=== PATIENT | female | born 1955 | race African-American/Black ===

== ENCOUNTER 2018-02-02 20:13 | Emergency (ER) | payer MEDICAID ==
[2018-02-02] MEDS ORDERED: TRAMADOL HCL 50 MG TAB ONE (21:49)
--- NOTE | 2018-02-02 21:58 | ER ---
Nurse's Notes [facility] Name: Chelsea Cristobal Age: 62 yrs Sex: Female : 1955 Arrival Date: 02/02/2018 Time: 20:13 Bed 23 Private MD: Diagnosis: Pain in left toe(s)-Second Presentation: 02/02 20:36 Presenting complaint: Patient states: Left 2 nd tow pain and swelling for 2 months. aj Bruising noted to posterior 2 nd digits. Transition of care: patient was not received from another setting of care. Onset of symptoms was November 2017. Care prior to arrival: None. 20:36 Method Of Arrival: Ambulatory aj 20:36 Acuity: INDIO 4 aj Triage Assessment: 20:37 General: Appears in no apparent distress. comfortable, Behavior is calm, cooperative, aj appropriate for age. Pain: Complains of pain in plantar aspect of left second toe and left second toe Pain currently is 8 out of 10 on a pain scale. Neuro: Level of Consciousness is awake, alert, obeys commands, Oriented to person, place, time, situation. Respiratory: Airway is patent Respiratory effort is even, unlabored, Respiratory pattern is regular, symmetrical. Derm: Skin is intact, is healthy with good turgor, Skin is pink, warm \T\ dry. normal. Musculoskeletal: Swelling present in plantar aspect of left second toe and left second toe Reports pain in plantar aspect of left second toe and left second toe. Historical: - Allergies: 20:37 Motrin; aj - Home Meds: 20:37 None [Active]; aj - PMHx: 20:37 None; aj - PSHx: 20:37 Appendectomy; gall stone removal; aj - Immunization history:: Adult Immunizations up to date. - Social history:: Smoking status: Patient/guardian denies using tobacco. Screenin:19 Abuse screen: Denies threats or abuse. Nutritional screening: No deficits noted. tl3 Tuberculosis screening: No symptoms or risk factors identified. Fall Risk None identified. Assessment: 21:19 Reassessment: pt reports painful swelling in toe for about the last couple of weeks, tl3 denies knowledge of any injury. General: Appears in no apparent distress. distressed, comfortable, well groomed, well developed, well nourished, Behavior is calm, cooperative, appropriate for age. Pain: Pain currently is 8 out of 10 on a pain scale. Neuro: Level of Consciousness is awake, alert, obeys commands, Oriented to person, place, time, situation, Appropriate for age. Cardiovascular: Heart tones S1 S2 present Capillary refill < 3 seconds in bilateral toes. Respiratory: Airway is patent Trachea midline Respiratory effort is even, unlabored, Respiratory pattern is regular, symmetrical, Breath sounds are clear. GI: No signs and/or symptoms were reported involving the gastrointestinal system. : No signs and/or symptoms were reported regarding the genitourinary system. EENT: No signs and/or symptoms were reported regarding the EENT system. Derm: No signs and/or symptoms reported regarding the dermatologic system. Musculoskeletal: Swelling present in left second toe. 22:04 Reassessment: Patient appears in no apparent distress at this time. No changes from tl3 previously documented assessment. Patient and/or family updated on plan of care and expected duration. Pain level reassessed. Patient is alert, oriented x 3, equal unlabored respirations, skin warm/dry/pink. crutch walking demonstrated. Vital Signs: 20:37 BP 155 / 87; Pulse 81; Resp 19; Temp 97.5; Pulse Ox 100% on R/A; Weight 82.55 kg; aj Height 5 ft. 4 in. (162.56 cm); Pain 8/10; 22:04 BP 138 / 76; Pulse 74; Resp 18; Pulse Ox 100% on R/A; tl3 20:37 Body Mass Index 31.24 (82.55 kg, 162.56 cm) ED Course: 20:13 Patient arrived in ED. ds1 20:37 Triage completed. aj 20:37 Arm band placed on right wrist. Patient placed in waiting room. X-ray ordered. aj 21:01 Kevan Gomes PA is PHCP. cp 21:01 Johnny Pike MD is Attending Physician. cp 21:16 Eusebia Coronado, JIGNESH is Primary Nurse. tl3 21:19 No apparent distress. tl3 21:19 Patient has correct armband on for positive identification. Bed in low position. Call tl3 light in reach. Side rails up X 1. Adult w/ patient. Pulse ox on. NIBP on. 21:19 No provider procedures requiring assistance completed. X-ray(s) taken. tl3 21:31 X-ray completed. Portable x-ray completed in exam room. Patient tolerated procedure kc2 well. 21:31 XRAY Foot LEFT 2 View In Process Unspecified. EDMS 21:56 Raymundo Boone DPM is Referral Physician. cp 22:04 Patient did not have IV access during this emergency room visit. tl3 Administered Medications: 21:50 Drug: traMADol 50 mg Route: PO; tl3 22:04 Follow up: Response: Medication administered at discharge. tl3 Outcome: 21:57 Discharge ordered by MD. cp 22:04 Discharged to home ambulatory, with crutches, with family. tl3 22:04 Condition: stable 22:04 Discharge instructions given to patient, Instructed on discharge instructions, follow up and referral plans. medication usage, crutch walking, Demonstrated understanding of instructions, follow-up care, medications, crutch walking, Prescriptions given X 1. 22:06 Patient left the ED. tl3 Signatures: Dispatcher [employer] EDMS Amanda Moreno, RN RN Nathalia Alvarado ds1 Kevan Gomes PA PA Amarilis Hall kc2 Eusebia Coronado, RN RN tl3
--- NOTE | 2018-02-02 21:58 | EDPHYS ---
Physician Documentation [facility] Name: Chelsea Cristobal Age: 62 yrs Sex: Female : 1955 Arrival Date: 02/02/2018 Time: 20:13 Bed 23 Private MD: ED Physician Johnny Pike HPI: 02/02 21:38 This 62 yrs old Black Female presents to ER via Ambulatory with complaints of Toe Issue.cp 21:39 The patient presents with pain, swelling, tenderness. The complaints affect the plantar cp aspect of left second toe. Context: resulted from an unknown cause, the patient can fully bear weight. Onset: The symptoms/episode began/occurred 2 month(s) ago. Historical: - Allergies: 20:37 Motrin; aj - Home Meds: 20:37 None [Active]; aj - PMHx: 20:37 None; aj - PSHx: 20:37 Appendectomy; gall stone removal; aj - Immunization history:: Adult Immunizations up to date. - Social history:: Smoking status: Patient/guardian denies using tobacco. ROS: 21:40 Constitutional: Negative for body aches, chills, fever, poor PO intake. cp 21:40 Eyes: Negative for injury, pain, redness, and discharge. cp 21:40 Cardiovascular: Negative for chest pain, edema, palpitations. 21:40 Respiratory: Negative for cough, shortness of breath, wheezing. 21:40 Abdomen/GI: Negative for abdominal pain, nausea, vomiting, and diarrhea. 21:40 MS/extremity: Positive for pain, tenderness, of the plantar aspect of left second toe, Negative for injury or acute deformity, paresthesias. 21:40 Skin: Negative for cellulitis, discoloration. 21:40 All other systems are negative. Exam: 21:50 Head/Face: Normocephalic, atraumatic. cp 21:50 Constitutional: The patient appears in no acute distress, alert, awake, non-toxic, well developed, well nourished. 21:50 Eyes: Periorbital structures: appear normal, Conjunctiva: normal, no exudate, no injection, Lids and lashes: appear normal, bilaterally. 21:50 ENT: External ear(s): are unremarkable, Nose: is normal, Mouth: Lips: moist, Posterior pharynx: is normal, airway is patent. 21:50 Chest/axilla: Inspection: normal. 21:50 Cardiovascular: Rate: normal, Rhythm: regular, Pulses: Pulses are 2+ in left dorsalis pedis artery. Edema: is not appreciated. 21:50 Respiratory: the patient does not display signs of respiratory distress, Respirations: normal, no use of accessory muscles, no retractions, no splinting, no tachypnea. 21:50 Musculoskeletal/extremity: Extremities: grossly normal except: noted in the plantar aspect of left second toe: swelling, tenderness, There is no evidence of cellulitis. Vital Signs: 20:37 BP 155 / 87; Pulse 81; Resp 19; Temp 97.5; Pulse Ox 100% on R/A; Weight 82.55 kg; aj Height 5 ft. 4 in. (162.56 cm); Pain 8/10; 22:04 BP 138 / 76; Pulse 74; Resp 18; Pulse Ox 100% on R/A; tl3 20:37 Body Mass Index 31.24 (82.55 kg, 162.56 cm) MDM: 21:01 Patient medically screened. cp 21:55 Differential diagnosis: fracture, gout, cellulitis, callous. Data reviewed: vital cp signs, nurses notes, radiologic studies, plain films, and as a result, I will discharge patient. 02/02 20:39 Order name: XRAY Foot LEFT 2 View 02/02 21:47 Order name: Post-op Orthopedic Shoe; Complete Time: 21:57 cp 02/02 21:47 Order name: Crutches; Complete Time: 21:57 cp Administered Medications: 21:50 Drug: traMADol 50 mg Route: PO; tl3 22:04 Follow up: Response: Medication administered at discharge. tl3 Disposition: 02/03 05:56 Co-signature as Attending Physician, Johnny Pike MD I agree with the assessment and tw4 plan of care. Disposition: 02/02/18 21:57 Discharged to Home. Impression: Pain in left toe(s) - Second. - Condition is Stable. - Discharge Instructions: Musculoskeletal Pain. - Prescriptions for Tramadol 50 mg Oral Tablet - take 1 tablet by ORAL route every 8 hours as needed; 20 tablet. - Medication Reconciliation Form, Thank You Letter, Antibiotic Education, Prescription Opioid Use form. - Follow up: Raymundo Boone DPM; When: 1 - 2 days; Reason: Recheck today's complaints. - Problem is an ongoing problem. - Symptoms are unchanged. Signatures: Dispatcher [employer] Amanda Fuentes, RN RN Kevan Aranda PA PA cp Wadley, Terrence, MD MD tw4 Eusebia Coronado RN RN tl3
--- NOTE | 2018-02-03 07:52 | RAD REPORT ---
EXAM DESCRIPTION: RAD - Foot Left 2 View - 02/02/2018 9:32 pm CLINICAL HISTORY: Soft tissue pain and swelling COMPARISON: None. FINDINGS: No fracture, dislocation or periosteal reaction. No acute or destructive bony process. No air or foreign body in the soft tissues. IMPRESSION: Negative left foot examination.
== END 2018-02-02 22:06 | disposition home or self-care (01) ==
LOC: ER 20:13
DX: M79.675 Pain in left toe(s) (principal); Z88.6 Allergy status to analgesic agent
CPT/HCPCS: 99284

== ENCOUNTER 2018-03-28 22:05 | Emergency (ER) | payer MEDICAID ==
[2018-03-28] MEDS ORDERED: MORPHINE 4 MG/ML SYR ONE (23:20)
[2018-03-28] MEDS ORDERED: ONDANSETRON 4 MG (ODT) TAB ONE (23:21)
[2018-03-28 23:42] LABS: Urine Blood 1+ (NEG); Urine Glucose NEGATIVE (NEG); Urine Protein NEGATIVE (NEG); Urine Specific Gravity <1.005 (1.005-1.030)
[2018-03-29] MEDS ORDERED: MORPHINE 4 MG/ML SYR ONE (00:27)
[2018-03-29 00:29] LABS: Absolute Lymphocytes (CBC) 2.1 K/uL (0.7-4.9); Absolute Monocytes 0.4 K/uL (0.1-1.3); Absolute Neutrophil 3.2 K/uL (1.8-8.0); Basophils % 0.6 % (0-1.3); Eosinophils % 3.7 % (0-4.4); Hematocrit 34.3 % (36.0-45.0); Lymphocytes % 35.7 % (15.3-44.8); MCV 90.1 fL (80-100); MPV 11.6 fL (7.6-11.3); Monocytes % 6.2 % (3.3-12.3)
[2018-03-29 00:42] LABS: Protime INR 0.92
[2018-03-29 00:45] LABS: Bicarbonate 31 mEq/L (21-31); Glucose Level 75 mg/dL (65-120); Potassium 3.1 mEq/L (3.6-5.0); Sodium Level 143 mEq/L (135-145)
[2018-03-29 00:51] LABS: ALT/SGPT 21 IU/L (10-60); AST/SGOT 28 IU/L (10-42); Albumin 3.7 g/dL (3.2-5.5); Alkaline Phosphatase 71 IU/L (42-121); BUN Blood Urea Nitrogen 6 mg/dL (6-20); Bilirubin Direct 0.1 mg/dL (0-0.2); Bilirubin Total 0.3 mg/dL (0.3-1.2); Creatine Phosphokinase 136 IU/L (22-269); Magnesium 2.1 mg/dL (1.8-2.5); Protein, Total 7.3 g/dL (6.0-8.3)
[2018-03-29 00:54] LABS: CKMB Creatine Kinase MB 1.3 ng/ml (0.3-4.0)
--- NOTE | 2018-03-29 01:45 | ER ---
Nurse's Notes [facility] Name: Chelsea Cristobal Age: 62 yrs Sex: Female : 1955 Arrival Date: 03/28/2018 Time: 22:08 Bed 16 Private MD: Diagnosis: Chest pain, unspecified Presentation: 03/28 22:24 Presenting complaint: Patient states: pt states that chest pain started this afternoon tl3 about 1pm, now headache on left side pain at a 9/10. Transition of care: patient was not received from another setting of care. Onset of symptoms was March 28, 2018. Risk Assessment: Do you want to hurt yourself or someone else? Patient reports no desire to harm self or others. Initial Sepsis Screen: Does the patient meet any 2 criteria? Temp <36.0*C (96.8*F)) or > 38.3*C (100.4*F). No. Patient's initial sepsis screen is negative. Does the patient have a suspected source of infection? No. Patient's initial sepsis screen is negative. Care prior to arrival: None. 22:24 Method Of Arrival: Wheelchair tl3 22:24 Acuity: INDIO 3 tl3 Triage Assessment: 22:27 Headache History: The patient has had previous headaches and this one is similar to tl3 previous episodes. General: Appears distressed, uncomfortable, Behavior is cooperative. Pain: Pain currently is 9 out of 10 on a pain scale. 03/29 02:05 Pain: Pain began gradually, Also complains of inability to concentrate. bs1 Historical: - Allergies: 03/28 22:27 Motrin; tl3 - PSHx: 22:27 Appendectomy; gall stone removal; tl3 - Immunization history:: Adult Immunizations up to date. - Social history:: Smoking status: Patient/guardian denies using tobacco, never smoked. - Ebola Screening: : Patient denies travel to an Ebola-affected area in the 21 days before illness onset. Screenin/03 01:45 Abuse screen: Denies threats or abuse. Denies injuries from another. Nutritional bs1 screening: No deficits noted. Tuberculosis screening: No symptoms or risk factors identified. Fall Risk None identified. Assessment: 03/28 22:30 General: Appears uncomfortable, Behavior is calm, cooperative, appropriate for age. bs1 Pain: Complains of pain in mid chest Pain does not radiate. Neuro: Level of Consciousness is awake, alert, obeys commands, Oriented to person, place, time, situation, Appropriate for age Chief Port Director are equal bilaterally Reports headache. Cardiovascular: Reports chest pain, Denies shortness of breath, Heart tones S1 S2 present Capillary refill < 3 seconds Patient's skin is warm and dry. Respiratory: Airway is patent Trachea midline Respiratory effort is even, unlabored, Respiratory pattern is regular, symmetrical, Breath sounds are clear bilaterally. GI: No deficits noted. No signs and/or symptoms were reported involving the gastrointestinal system. : No deficits noted. No signs and/or symptoms were reported regarding the genitourinary system. EENT: No deficits noted. No signs and/or symptoms were reported regarding the EENT system. Derm: Skin is intact, Skin is pink, warm \T\ dry. Musculoskeletal: Circulation, motion, and sensation intact. Capillary refill < 3 seconds, Range of motion: intact in all extremities. 03/29 00:00 Reassessment: Patient appears in no apparent distress at this time. Patient and/or bs1 family updated on plan of care and expected duration. Pain level reassessed. Patient is alert, oriented x 3, equal unlabored respirations, skin warm/dry/pink. 01:45 Reassessment: Patient and/or family updated on plan of care and expected duration. Pain bs1 level reassessed. Patient is alert, oriented x 3, equal unlabored respirations, skin warm/dry/pink. Patient states feeling better. Patient states symptoms have improved. Vital Signs: 03/28 22:27 BP 124 / 79; Pulse 84 RA; Resp 20; Temp 96.1; Pulse Ox 100% on R/A; tl3 23:30 BP 117 / 85; Pulse 66; Resp 16; Pulse Ox 99% on R/A; bs1 03/29 00:30 BP 126 / 78; Pulse 88; Resp 16; Pulse Ox 100% on R/A; bs1 01:30 BP 130 / 82 (art line/); Pulse 89; Resp 16; Pulse Ox 99% on R/A; bs1 01:45 Temp 97(O); bs1 ED Course: 03/28 22:08 Patient arrived in ED. es 22:26 Triage completed. tl3 22:27 Arm band placed on. tl3 22:29 Iraj Salter NP is PHCP. pm1 22:29 Johnny Pike MD is Attending Physician. pm1 22:55 XRAY Chest (1 view) In Process Unspecified. EDMS 23:00 Milla Ennis, RN is Primary Nurse. bs1 23:00 Patient has correct armband on for positive identification. Bed in low position. Call bs1 light in reach. Side rails up X 1. potline monitor on. Pulse ox on. NIBP on. 23:45 CT Head Brain wo Cont In Process Unspecified. EDMS 03/29 02:05 No provider procedures requiring assistance completed. IV discontinued. bs1 Administered Medications: 03/28 23:24 Drug: morphine 4 mg {Note: Per Gaetano COVINGTON, Okay to give IM, given Left deltoid.} Route: bs1 IVP; Site: Other; 03/29 00:12 Follow up: Response: No adverse reaction bs1 03/28 23:24 Drug: Zofran 4 mg {Note: Per Provider Gaetano COVINGTON, okay to give oral.} Route: IVP; Site: bs1 Other; 03/29 00:11 Follow up: Response: No adverse reaction bs1 00:28 Drug: morphine 4 mg {Note: Given IM, left gluteus.} Route: IVP; Site: Other; bs1 02:08 Follow up: Response: No adverse reaction bs1 01:45 CANCELLED (Duplicate Order): Flexeril 10 mg PO once pm1 01:53 Drug: Potassium Effervescent Tablet 50 mEq Route: PO; bs1 02:08 Follow up: Response: No adverse reaction bs1 01:53 Drug: Flexeril 10 mg Route: PO; bs1 02:08 Follow up: Response: No adverse reaction bs1 Outcome: 01:45 Discharge ordered by . pm1 02:05 Discharged to home ambulatory, with family. bs1 02:05 Condition: stable 02:05 Discharge instructions given to patient, Instructed on discharge instructions, follow up and referral plans. medication usage, Demonstrated understanding of instructions, follow-up care, medications, Prescriptions given X 1. 02:09 Patient left the ED. bs1 Signatures: Dispatcher [employer] Kacie Coles Iraj Salter NP [employer] pm1 Milla Ennis, RN RN bs1 Eusebia Coronado, RN RN tl3 Corrections: (The following items were deleted from the chart) 02:04 03/28 22:30 Neuro: Level of Consciousness is awake, alert, obeys commands, Oriented to bs1 person, place, time, situation, Appropriate for age Chief Port Director are equal bilaterally bs1
--- NOTE | 2018-03-29 01:45 | EDPHYS ---
Physician Documentation [facility] Name: Chelsea Cristobal Age: 62 yrs Sex: Female : 1955 Arrival Date: 03/28/2018 Time: 22:08 Bed 16 Private MD: ED Physician Johnny Pike HPI: 03/28 23:00 This 62 yrs old Black Female presents to ER via Wheelchair with complaints of Headache, pm1 Chest Pain. 23:00 The patient or guardian reports chest pain that is located primarily in the anterior pm1 chest wall, left. Onset: today, at 13:00. The pain does not radiate. Associated signs and symptoms: Pertinent positives: headache, Pertinent negatives: abdominal pain, cough, diaphoresis, dizziness, nausea, palpitations, shortness of breath, vomiting. The chest pain is described as sharp. Duration: The patient or guardian reports a single episode, that is still ongoing, and unchanged. Modifying factors: The symptoms are alleviated by nothing. the symptoms are aggravated by deep breath, moving left arm. Severity of pain: in the emergency department the pain is actually worse. The patient has not recently seen a physician. Historical: - Allergies: 22:27 Motrin; tl3 - PSHx: 22:27 Appendectomy; gall stone removal; tl3 - Immunization history:: Adult Immunizations up to date. - Social history:: Smoking status: Patient/guardian denies using tobacco, never smoked. - Ebola Screening: : Patient denies travel to an Ebola-affected area in the 21 days before illness onset. ROS: 23:00 Constitutional: Negative for fever, chills, and weight loss, Eyes: Negative for injury, pm1 pain, redness, and discharge, ENT: Negative for injury, pain, and discharge, Neck: Negative for injury, pain, and swelling. 23:00 Respiratory: Negative for shortness of breath, cough, wheezing, and pleuritic chest pain, Abdomen/GI: Negative for abdominal pain, nausea, vomiting, diarrhea, and constipation, Back: Negative for injury and pain, : Negative for injury, bleeding, discharge, and swelling, MS/Extremity: Negative for injury and deformity, Skin: Negative for injury, rash, and discoloration. 23:00 Cardiovascular: Positive for chest pain, Negative for edema, orthopnea, palpitations. 23:00 Neuro: Positive for headache, Negative for dizziness, numbness, tingling. Exam: 23:00 Constitutional: This is a well developed, well nourished patient who is awake, alert, pm1 and in no acute distress. Head/Face: Normocephalic, atraumatic. Eyes: Pupils equal round and reactive to light, extra-ocular motions intact. Lids and lashes normal. Conjunctiva and sclera are non-icteric and not injected. Cornea within normal limits. Periorbital areas with no swelling, redness, or edema. ENT: Nares patent. No nasal discharge, no septal abnormalities noted. Tympanic membranes are normal and external auditory canals are clear. Oropharynx with no redness, swelling, or masses, exudates, or evidence of obstruction, uvula midline. Mucous membranes moist. Neck: Trachea midline, no thyromegaly or masses palpated, and no cervical lymphadenopathy. Supple, full range of motion without nuchal rigidity, or vertebral point tenderness. No Meningismus. Cardiovascular: Regular rate and rhythm with a normal S1 and S2. No gallops, murmurs, or rubs. Normal PMI, no JVD. No pulse deficits. Respiratory: Lungs have equal breath sounds bilaterally, clear to auscultation and percussion. No rales, rhonchi or wheezes noted. No increased work of breathing, no retractions or nasal flaring. Abdomen/GI: Soft, non-tender, with normal bowel sounds. No distension or tympany. No guarding or rebound. No evidence of tenderness throughout. Back: No spinal tenderness. No costovertebral tenderness. Full range of motion. Skin: Warm, dry with normal turgor. Normal color with no rashes, no lesions, and no evidence of cellulitis. 23:00 Chest/axilla: Inspection: normal, Palpation: crepitus, is not appreciated, tenderness, of the anterior aspect of left upper chest, that totally reproduces the patient's complaints, rotation of left arm and shoulder reproduces chest pain symptoms and deep breathing reproduces it. Vital Signs: 22:27 BP 124 / 79; Pulse 84 RA; Resp 20; Temp 96.1; Pulse Ox 100% on R/A; tl3 23:30 BP 117 / 85; Pulse 66; Resp 16; Pulse Ox 99% on R/A; bs1 03/29 00:30 BP 126 / 78; Pulse 88; Resp 16; Pulse Ox 100% on R/A; bs1 01:30 BP 130 / 82 (art line/); Pulse 89; Resp 16; Pulse Ox 99% on R/A; bs1 01:45 Temp 97(O); bs1 MDM: 03/28 22:30 Patient medically screened. pm1 03/29 01:44 Data reviewed: vital signs. Data interpreted: Pulse oximetry: on room air is 100 %. pm1 Interpretation: normal. Counseling: I had a detailed discussion with the patient and/or guardian regarding: the historical points, exam findings, and any diagnostic results supporting the discharge/admit diagnosis, lab results, radiology results, the need for outpatient follow up, to return to the emergency department if symptoms worsen or persist or if there are any questions or concerns that arise at home. 03/28 22:35 Order name: CPK; Complete Time: 01:01 pm03/28 22:35 Order name: Ckmb; Complete Time: 01: pm03/28 22:35 Order name: Basic Metabolic Panel; Complete Time: 01:01 pm03/28 22:35 Order name: BNP; Complete Time: 01:01 pm03/28 22:35 Order name: CBC with Diff; Complete Time: 01:01 pm03/28 22:35 Order name: LFT's; Complete Time: 01:01 pm03/28 22:35 Order name: Magnesium; Complete Time: 01:01 pm03/28 22:35 Order name: PT-INR; Complete Time: 01:01 pm03/28 22:35 Order name: Ptt, Activated; Complete Time: 01:01 pm03/28 22:35 Order name: Troponin (emerg Dept Use Only); Complete Time: 01:01 pm03/28 22:35 Order name: XRAY Chest (1 view) pm03/28 23:12 Order name: CT Head Brain wo Cont 03/28 23:35 Order name: Urine Dipstick--Ancillary (enter results); Complete Time: 00:22 oe 03/28 22:35 Order name: EKG; Complete Time: 22:36 pm03/28 22:35 Order name: Cardiac monitoring; Complete Time: 00:12 pm03/28 22:35 Order name: EKG - Nurse/Tech; Complete Time: 23:33 pm1 03/28 22:35 Order name: IV Saline Lock; Complete Time: 00:13 pm1 03/28 22:35 Order name: Labs collected and sent; Complete Time: 00:13 pm1 03/28 22:35 Order name: O2 Per Protocol; Complete Time: 00:13 pm1 03/28 22:35 Order name: O2 Sat Monitoring; Complete Time: 00:13 pm1 03/28 22:35 Order name: Urine Dipstick-Ancillary (obtain specimen); Complete Time: 23:34 pm1 Administered Medications: 03/28 23:24 Drug: morphine 4 mg {Note: Per Gaetano COVINGTON, Okay to give IM, given Left deltoid.} Route: bs1 IVP; Site: Other; 03/29 00:12 Follow up: Response: No adverse reaction [facility] 03/28 23:24 Drug: Zofran 4 mg {Note: Per Provider Gaetano COVINGTON, okay to give oral.} Route: IVP; Site: [facility] Other; 03/29 00:11 Follow up: Response: No adverse reaction [facility] 00:28 Drug: morphine 4 mg {Note: Given IM, left gluteus.} Route: IVP; Site: Other; [facility] 02:08 Follow up: Response: No adverse reaction bs1 01:45 CANCELLED (Duplicate Order): Flexeril 10 mg PO once pm1 01:53 Drug: Potassium Effervescent Tablet 50 mEq Route: PO; bs1 02:08 Follow up: Response: No adverse reaction bs1 01:53 Drug: Flexeril 10 mg Route: PO; bs1 02:08 Follow up: Response: No adverse reaction bs1 Disposition: 04:34 Co-signature as Attending Physician, Johnny Pike MD I agree with the assessment and 4 plan of care. Disposition: 03/29/18 01:45 Discharged to Home. Impression: Chest pain, unspecified. - Condition is Stable. - Discharge Instructions: Nonspecific Chest Pain. - Prescriptions for Cyclobenzaprine 10 mg Oral Tablet - take 1 tablet by ORAL route every 8 hours As needed; 30 tablet. - Medication Reconciliation Form, Thank You Letter form. - Follow up: Emergency Department; When: As needed; Reason: Worsening of condition. Follow up: Private Physician; When: 2 - 3 days; Reason: Recheck today's complaints, Continuance of care, Re-evaluation by your physician. - Problem is new. - Symptoms have improved. Signatures: Dispatcher [employer] EDMS Iraj Salter, ADMINISTRATIVE ASSISTANT ADMINISTRATIVE ASSISTANT pm1 Milla Ennis, RN RN bs1 Johnny Pike MD MD tw4 Eusebia Coronado RN RN tl3 Corrections: (The following items were deleted from the chart) 00:13 03/28 22:35 Urine Test ordered. pm1 bs1 03/29 01:45 01:44 Flexeril 10 mg PO once ordered. pm1 pm1 02:09 01:45 03/29/2018 01:45 Discharged to Home. Impression: Chest pain, unspecified. bs1 Condition is Stable. Forms are Medication Reconciliation Form, Thank You Letter, Antibiotic Education, Prescription Opioid Use. Follow up: Emergency Department; When: As needed; Reason: Worsening of condition. Follow up: Private Physician; When: 2 - 3 days; Reason: Recheck today's complaints, Continuance of care, Re-evaluation by your physician. Problem is new. Symptoms have improved. pm1
[2018-03-29] MEDS ORDERED: CYCLOBENZAPRINE 10 MG TAB ONE (01:50)
[2018-03-29] MEDS ORDERED: POTASSIUM 25 MEQ EFFERV TAB ONE (01:50)
--- NOTE | 2018-03-29 09:59 | RAD REPORT ---
EXAM DESCRIPTION: Caryl Single View03/28/2018 10:55 pm CLINICAL HISTORY: Chest pain COMPARISON: October 2017 FINDINGS: The lungs appear clear of acute infiltrate. The heart is normal size IMPRESSION: No acute abnormalities displayed
--- NOTE | 2018-03-29 10:40 | EKG ---
Test Date: 2018-03-28 Test Time: 23:18:36 Delivery Route Driver: HENRIQUE MEASUREMENT RESULTS: Intervals: Rate: 77 LA: 160 QRSD: 90 QT: 392 QTc: 443 [place]: P: 50 LA: 160 QRS: 0 T: 18 INTERPRETIVE STATEMENTS: Normal sinus rhythm Moderate voltage criteria for LVH, may be normal variant Borderline ECG Compared to ECG 12/27/2017 22:21:33 No significant changes Electronically Signed On 03-29-18 10:40:05 CDT by Santo Garcia
--- NOTE | 2018-03-29 11:17 | RAD REPORT ---
EXAM DESCRIPTION: CT - Head Brain Wo Cont - 03/29/2018 2:15 am CLINICAL HISTORY: Headache COMPARISON: 2008 TECHNIQUE: Computed axial tomography of the head was obtained. IV contrast was not requested. A preliminary report was generated by [employer] and reviewed prior to this dictation tissue All CT scans are performed using dose optimization technique as appropriate and may include automated exposure control or mA/KV adjustment according to patient size. FINDINGS: An intracranial bleed is not seen . The ventricles are normal in caliber. No extra-axial fluid collection is noted. Mild to moderate low-density areas within periventricular, deep and subcortical white matter likely represent ischemic changes secondary to small vessel disease . Fluid within the sinuses/ mastoids is not seen. IMPRESSION: No acute intracranial abnormality is seen. If patient's symptoms persist MRI of the bra in would be recommended.
== END 2018-03-29 02:09 | disposition home or self-care (01) ==
LOC: ER 22:05
DX: R07.9 Chest pain, unspecified (principal); R51 Headache; Z88.6 Allergy status to analgesic agent
CPT/HCPCS: 36415; 70450; 71045; 80048; 80076; 81003; 82550; 82553; 83735; 83880; 84484; 85025; 85610; 85730; 93005; 96374; 96375; 99284

== ENCOUNTER 2018-04-04 22:55 | Emergency (ER) | payer MEDICAID ==
[2018-04-04] MEDS ORDERED: HYDROCODONE/APAP 5/325 MG TAB ONE (23:54)
--- NOTE | 2018-04-05 00:30 | EDPHYS ---
Physician Documentation [facility] Name: Chelsea Cristobal Age: 62 yrs Sex: Female : 1955 Arrival Date: 04/04/2018 Time: 22:56 Bed 6 Private MD: Ashley Still C ED Physician Kyle Dempsey HPI: 04/04 23:18 This 62 yrs old Black Female presents to ER via Wheelchair with complaints of Leg Pain, rn Foot Pain. 23:18 The patient presents with an injury, pain. The complaints affect the right ankle. rn Onset: The symptoms/episode began/occurred just prior to arrival. Modifying factors: the symptoms are aggravated by weight bearing. Severity of symptoms: At their worst the symptoms were mild, in the emergency department the symptoms are unchanged. The patient has experienced a previous episode. Reports right ankle pain, was walking, right foot slipped, had inversion injury, reports pain to right inner ankle, no foot pain.No other injuries.. Historical: - Allergies: 23:02 Motrin; fc - Home Meds: 23:02 None [Active]; fc - PMHx: 23:02 None; fc - PSHx: 23:02 Appendectomy; Cholecystectomy; fc - Immunization history:: Last tetanus immunization: unknown. - Social history:: Smoking status: Patient/guardian denies using tobacco. - Ebola Screening: : Patient negative for fever greater than or equal to 101.5 degrees Fahrenheit, and additional compatible Ebola Virus Disease symptoms Patient denies exposure to infectious person Patient denies travel to an Ebola-affected area in the 21 days before illness onset. - Family history:: not pertinent. - Hospitalizations: : No recent hospitalization is reported. ROS: 23:18 Constitutional: Negative for fever, chills, and weight loss, MS/Extremity: + right rn ankle injury and pain Exam: 23:18 Constitutional: This is a well developed, well nourished patient who is awake, alert, rn and in no acute distress. MS/ Extremity: Pulses equal, no cyanosis. Neurovascular intact. Tenderness right medial ankle, no tenderness over lateral ankle, no bony tenderness in foot, mild tenderness proximal tibia. Vital Signs: 23:02 BP 129 / 87; Pulse 89; Resp 18; Temp 98.1(O); Pulse Ox 100% on R/A; Weight 95.25 kg fc (R); Height 5 ft. 4 in. (162.56 cm) (R); Pain 10/10; 23:59 BP 135 / 89; Pulse 87; Resp 18 S; Pulse Ox 100% on R/A; Pain 10/10; jd3 23:02 Body Mass Index 36.05 (95.25 kg, 162.56 cm) MDM: 23:05 Patient medically screened. rn 04/05 00:29 Differential diagnosis: closed fracture, contusion. Data reviewed: vital signs, nurses rn notes, radiologic studies, plain films, and as a result, I will discharge patient. Counseling: I had a detailed discussion with the patient and/or guardian regarding: the historical points, exam findings, and any diagnostic results supporting the discharge/admit diagnosis, radiology results, the need for outpatient follow up, to return to the emergency department if symptoms worsen or persist or if there are any questions or concerns that arise at home. Response to treatment: the patient's symptoms have mildly improved after treatment, and as a result, I will discharge patient. Special discussion: I discussed with the patient/guardian in detail that at this point there is no indication for admission to the hospital. It is understood, however, that if the symptoms persist or worsen the patient needs to return immediately for re-evaluation. 04/04 23:10 Order name: XRAY Ankle RIGHT 3 view rn 04/04 23:10 Order name: XRAY Tib Fib RIGHT rn Administered Medications: 04/04 23:56 Drug: Boyd 5 mg-325 mg 1 tabs Route: PO; jd3 04/05 00:42 Follow up: Response: No adverse reaction jd3 Disposition: 04/05/18 00:30 Discharged to Home. Impression: Sprain of unspecified ligament of right ankle. - Condition is Stable. - Discharge Instructions: Ankle Sprain. - Medication Reconciliation Form, Thank You Letter, Antibiotic Education, Prescription Opioid Use form. - Follow up: Private Physician; When: As needed; Reason: Recheck today's complaints, Re-evaluation by your physician. - Problem is new. - Symptoms have improved. Signatures: Dispatcher [employer] EDMS Anjelica Polo RN RN Kyle Dempsey MD MD rn Davies, Jonathon, RN RN jd3 Corrections: (The following items were deleted from the chart) 00:42 00:30 04/05/2018 00:30 Discharged to Home. Impression: Sprain of unspecified ligament jd3 of right ankle. Condition is Stable. Forms are Medication Reconciliation Form, Thank You Letter, Antibiotic Education, Prescription Opioid Use. Follow up: Private Physician; When: As needed; Reason: Recheck today's complaints, Re-evaluation by your physician. Problem is new. Symptoms have improved. rn
--- NOTE | 2018-04-05 00:30 | ER ---
Nurse's Notes [facility] Name: Chelsea Cristobal Age: 62 yrs Sex: Female : 1955 Arrival Date: 04/04/2018 Time: 22:56 Bed 6 Private MD: Ashley Still C Diagnosis: Sprain of unspecified ligament of right ankle Presentation: 04/04 23:00 Presenting complaint: Patient states: that she was walking in the house and her right fc foot slipped out from under her and she is having increased pain. Has bolts and screws in the lower leg and ankle on that side. Transition of care: patient was not received from another setting of care. Onset of symptoms was April 04, 2018 at 22:15. Risk Assessment: Do you want to hurt yourself or someone else? Patient reports no desire to harm self or others. Initial Sepsis Screen: Does the patient meet any 2 criteria? No. Patient's initial sepsis screen is negative. Does the patient have a suspected source of infection? No. Patient's initial sepsis screen is negative. Care prior to arrival: None. 23:00 Method Of Arrival: Wheelchair fc 23:00 Acuity: INDIO 4 fc Historical: - Allergies: 23:02 Motrin; fc - Home Meds: 23:02 None [Active]; fc - PMHx: 23:02 None; fc - PSHx: 23:02 Appendectomy; Cholecystectomy; fc - Immunization history:: Last tetanus immunization: unknown. - Social history:: Smoking status: Patient/guardian denies using tobacco. - Ebola Screening: : Patient negative for fever greater than or equal to 101.5 degrees Fahrenheit, and additional compatible Ebola Virus Disease symptoms Patient denies exposure to infectious person Patient denies travel to an Ebola-affected area in the 21 days before illness onset. - Family history:: not pertinent. - Hospitalizations: : No recent hospitalization is reported. Screenin:58 Abuse screen: Denies threats or abuse. Nutritional screening: No deficits noted. jd3 Tuberculosis screening: No symptoms or risk factors identified. Fall Risk Fall in past 12 months (25 points). No IV (0 pts). Ambulatory Aid- Crutches/Cane/Walker (15 pts). Gait- Weak (10 pts.). Mental Status- Oriented to own ability (0 pts). Total Ang Fall Scale indicates High Risk Score (45 or more points). Fall prevention measures have been instituted. Side Rails Up X 2 Placed Close to Nursing Station Frequent Obs/Assessments Occuring Family Present and informed to notify staff if the need to leave the bedside. Assessment: 23:56 General: Appears uncomfortable, Behavior is calm, cooperative, appropriate for age. jd3 Pain: Complains of pain in right ankle and right cain Quality of pain is described as sharp, Pain began suddenly, Is continuous, Aggravated by increased activity, weight bearing. Neuro: Level of Consciousness is awake, alert, obeys commands, Oriented to person, place, time, situation, Appropriate for age. Cardiovascular: Heart tones S1 S2 present Capillary refill < 3 seconds Patient's skin is warm and dry. Pulses are palpable in right dorsalis pedis artery and left dorsalis pedis artery. Respiratory: Airway is patent Respiratory effort is even, unlabored, Respiratory pattern is regular, symmetrical, Breath sounds are clear bilaterally. GI: Abdomen is round Bowel sounds present X 4 quads. Abd is soft and non tender X 4 quads. Patient currently denies nausea, vomiting. : No signs and/or symptoms were reported regarding the genitourinary system. EENT: No signs and/or symptoms were reported regarding the EENT system. Derm: Skin is intact, Skin is dry, Skin is normal, Skin temperature is warm. Musculoskeletal: Circulation, motion, and sensation intact. Range of motion: intact in all extremities. 04/05 00:39 Reassessment: Patient appears in no apparent distress at this time. Patient and/or jd3 family updated on plan of care and expected duration. Pain level reassessed. Patient is alert, oriented x 3, equal unlabored respirations, skin warm/dry/pink. pt reported understanding of discharge instructions, pt assisted to front of ED with family with wheelchair. Vital Signs: 04/04 23:02 BP 129 / 87; Pulse 89; Resp 18; Temp 98.1(O); Pulse Ox 100% on R/A; Weight 95.25 kg fc (R); Height 5 ft. 4 in. (162.56 cm) (R); Pain 10/10; 23:59 BP 135 / 89; Pulse 87; Resp 18 S; Pulse Ox 100% on R/A; Pain 10/10; jd3 23:02 Body Mass Index 36.05 (95.25 kg, 162.56 cm) ED Course: 22:56 Patient arrived in ED. am2 22:57 Ashley Still FNP is Private Physician. am2 23:01 Triage completed. 23:02 Arm band placed on Patient placed in an exam room, on a stretcher. fc 23:05 Kyle Dempsey MD is Attending Physician. rn 23:45 Keegan Redmond RN is Primary Nurse. jd3 23:59 Patient has correct armband on for positive identification. Bed in low position. Call jd3 light in reach. Side rails up X2. Adult w/ patient. 04/05 00:22 X-ray completed. Portable x-ray completed in exam room. Patient tolerated procedure kw well. 00:41 No provider procedures requiring assistance completed. Patient did not have IV access jd3 during this emergency room visit. 00:41 Jose Carlos wrap to right ankle. jd3 00:43 XRAY Ankle RIGHT 3 view In Process Unspecified. EDMS 00:43 XRAY Tib Fib RIGHT In Process Unspecified. EDMS Administered Medications: 04/04 23:56 Drug: Tiff 5 mg-325 mg 1 tabs Route: PO; jd3 04/05 00:42 Follow up: Response: No adverse reaction jd3 Outcome: 00:30 Discharge ordered by . rn 00:41 Discharged to home via wheelchair, with family. jd3 00:41 Condition: stable 00:41 Discharge instructions given to patient, family, Instructed on discharge instructions, follow up and referral plans. Demonstrated understanding of instructions, follow-up care. 00:42 Patient left the ED. jd3 Signatures: Dispatcher [employer] EDMS Anjelica Polo, RN RN Kyle Dempsey MD MD rn Whitley, Kimberlee kw Moreno, Amanda am2 Keegan Redmond RN RN [email or web address]
--- NOTE | 2018-04-05 10:25 | RAD REPORT ---
EXAM DESCRIPTION: RAD - Ankle Right 3 View - 04/05/2018 12:43 am CLINICAL HISTORY: Right ankle pain status post fall FINDINGS: Plate and screws affix old fibula and tibial fractures. The inferior aspect of the tibial sideplate is not flush with the tibia. 3 millimeter separates the plate from the bone. No acute fracture or dislocation is seen
--- NOTE | 2018-04-05 10:35 | RAD REPORT ---
EXAM DESCRIPTION: RAD - Tib Fib Right - 04/05/2018 12:43 am CLINICAL HISTORY: Right leg pain status post fall FINDINGS: No acute fracture is seen
== END 2018-04-05 00:42 | disposition home or self-care (01) ==
LOC: ER 22:55
DX: S93.401A Sprain of unspecified ligament of right ankle, initial encounter (principal); W01.0XXA Fall on same level from slipping, tripping and stumbling without subsequent striking against object, initial encounter; Y93.01 Activity, walking, marching and hiking; Y92.9 Unspecified place or not applicable; Z88.6 Allergy status to analgesic agent
CPT/HCPCS: 99283

== ENCOUNTER 2018-06-04 21:29 | Emergency (ER) | payer MEDICAID ==
[2018-06-04] MEDS ORDERED: MORPHINE 4 MG/ML SYR ONE (22:11)
[2018-06-04] MEDS ORDERED: ONDANSETRON 4 MG/2 ML VIAL ONE (22:11)
[2018-06-04] MEDS ORDERED: NA CHLORIDE 0.9% 1,000 ML ONE (22:12)
[2018-06-04 22:17] LABS: Urine Blood 1+ (NEG); Urine Glucose NEGATIVE (NEG); Urine Protein NEGATIVE (NEG); Urine Specific Gravity <1.005 (1.005-1.030)
[2018-06-04 22:21] LABS: Absolute Monocytes 0.4 K/uL (0.1-1.3); Absolute Neutrophil 3.2 K/uL (1.8-8.0); Eosinophils % 2.6 % (0-4.4); Lymphocytes % 35.4 % (15.3-44.8); MCH 29.4 pg (27.0-35.0); MCV 89.5 fL (80-100); MPV 9.7 fL (7.6-11.3); Monocytes % 6.4 % (3.3-12.3)
[2018-06-04 22:36] LABS: ALT/SGPT 14 U/L (12-78); AST/SGOT 16 U/L (15-37); Albumin 3.3 g/dL (3.4-5.0); Alkaline Phosphatase 84 U/L (45-117); Amylase Level 71 U/L (25-115); BUN Blood Urea Nitrogen 7 mg/dL (7-18); Bicarbonate 27 mmol/L (21-32); Bilirubin Direct < 0.1 mg/dL (0-0.2); Bilirubin Total 0.3 mg/dL (0.2-1.0); Glucose Level 89 mg/dL (74-106); Lipase 128 U/L (73-393); Protein, Total 7.7 g/dL (6.4-8.2); Sodium Level 140 mmol/L (136-145)
[2018-06-04 22:46] LABS: Urine Bacteria <20 /HPF (<20); Urine Culture Reflex Order REFLEXED; Urine RBC <5 /HPF (NONE SEEN)
[2018-06-04] MEDS ORDERED: MEPERIDINE HCL 50 MG/ML AMP ONE (23:47)
--- NOTE | 2018-06-05 02:08 | ER ---
Nurse's Notes [facility] Name: Chelsea Cristobal Age: 62 yrs Sex: Female : 1955 Arrival Date: 06/04/2018 Time: 21:32 Bed 7 Private MD: Diagnosis: Lower abdominal pain. Marked biliary ductal dilatation Presentation: 06/04 21:38 Presenting complaint: Patient states: Lower abdominal pain that started at 1500 today. aj Denies burning with urination, N/V/D, or vaginal discharge. Transition of care: patient was not received from another setting of care. Onset of symptoms was June 04, 2018. Risk Assessment: Do you want to hurt yourself or someone else? Patient reports no desire to harm self or others. Initial Sepsis Screen: Does the patient meet any 2 criteria? No. Patient's initial sepsis screen is negative. Does the patient have a suspected source of infection? No. Patient's initial sepsis screen is negative. Care prior to arrival: None. 21:38 Method Of Arrival: Ambulatory 21:38 Acuity: INDIO 3 aj Triage Assessment: 21:40 General: Appears in no apparent distress. uncomfortable, Behavior is calm, cooperative, aj appropriate for age. Pain: Complains of pain in suprapubic area, right inguinal area and left inguinal area. Neuro: Level of Consciousness is awake, alert, obeys commands, Oriented to person, place, time, situation, Appropriate for age. Respiratory: Airway is patent Respiratory effort is even, unlabored, Respiratory pattern is regular, symmetrical. GI: Abdomen is obese, Reports lower abdominal pain. Derm: Skin is intact, is healthy with good turgor, Skin is pink, warm \T\ dry. normal. Historical: - Allergies: 21:40 Motrin; aj - Home Meds: 21:40 None [Active]; aj - PMHx: 21:40 None; aj - PSHx: 21:40 Cholecystectomy; Appendectomy; Hysterectomy; aj - Immunization history:: Adult Immunizations up to date. - Social history:: Smoking status: Patient/guardian denies using tobacco. - Ebola Screening: : Patient negative for fever greater than or equal to 101.5 degrees Fahrenheit, and additional compatible Ebola Virus Disease symptoms Patient denies exposure to infectious person Patient denies travel to an Ebola-affected area in the 21 days before illness onset No symptoms or risks identified at this time. Screenin:20 Abuse screen: Denies threats or abuse. Denies injuries from another. Nutritional bp screening: No deficits noted. Tuberculosis screening: No symptoms or risk factors identified. Fall Risk None identified. Assessment: 21:45 General: Appears in no apparent distress. uncomfortable, Behavior is calm, cooperative, bp appropriate for age. Pain: Complains of pain in pelvis. Neuro: Level of Consciousness is awake, alert, obeys commands. Cardiovascular: No deficits noted. Respiratory: Airway is patent Respiratory effort is even, unlabored, Respiratory pattern is regular, symmetrical. GI: Bowel sounds present X 4 quads. Abd is soft X 4 quads Patient currently denies nausea, vomiting. : Reports pain in suprapubic area Denies burning with urination, discharge. EENT: No deficits noted. Derm: No deficits noted. Musculoskeletal: Circulation, motion, and sensation intact. Range of motion: intact in all extremities. 22:24 Reassessment: PT DRINKING PO CONTRAST. bp 22:45 Reassessment: PO CONTRAST COMPLETED, CT NOTIFIED. bp 06/05 00:06 Reassessment: PT TO CT WITH BANDAGE MAKER. bp 01:00 Reassessment: ALL CURRENT ORDERS COMPLETED, RAD/LAB RESULTS PENDING. VS STABLE ON bp MONITOR. 02:13 Reassessment: PT D/C HOME AMBULATORY WITH FAMILY, DX WITH ABD PAIN AND BILIARY DUCTAL bp DILATION. Vital Signs: 06/04 21:40 BP 117 / 74; Pulse 95; Resp 22; Temp 97.8; Pulse Ox 100% on R/A; Weight 95.25 kg; aj Height 5 ft. 4 in. (162.56 cm); 22:25 BP 116 / 75; Pulse 82; Resp 14; Pulse Ox 97% ; bp 23:00 BP 101 / 70; Pulse 91; Resp 14; Pulse Ox 100% ; bp 06/05 01:00 BP 113 / 64; Pulse 74; Resp 14; Pulse Ox 100% ; bp 02:00 BP 127 / 78; Pulse 77; Resp 14; Pulse Ox 98% ; bp 06/04 21:40 Body Mass Index 36.04 (95.25 kg, 162.56 cm) aj ED Course: 06/04 21:32 Patient arrived in ED. es 21:39 Triage completed. aj 21:40 Arm band placed on right wrist. Patient placed in an exam room. aj 21:42 Paulo Zavaleta, RN is Primary Nurse. bp 21:44 Isra Magana MD is Attending Physician. pkl 22:00 No provider procedures requiring assistance completed. Inserted saline lock: 22 gauge bp in left forearm, using aseptic technique. Blood collected. 22:20 Patient has correct armband on for positive identification. Bed in low position. Call bp light in reach. Side rails up X2. 06/05 00:[address] via wheelchair. kw1 00:25 CT Abd/Pelvis - W/Contrast In Process Unspecified. EDMS 00:29 CT completed. Patient tolerated procedure well. Patient moved back from CT. kw1 02:07 Sim Bolden MD is Referral Physician. pkl 02:21 IV discontinued, intact, bleeding controlled, No redness/swelling at site. Pressure bp dressing applied. Administered Medications: 06/04 22:13 Drug: NS 0.9% 1000 ml Route: IV; Rate: 125 ml/hr; Site: right antecubital; bp 06/05 02:11 Follow up: IV Status: Completed infusion; IV Intake: 500ml bp 06/04 22:13 Drug: morphine 4 mg Route: IVP; Site: right antecubital; bp 22:13 Follow up: Response: Pain is decreased bp 22:13 Drug: Zofran 4 mg Route: IVP; Site: right antecubital; bp 22:14 Follow up: Response: No adverse reaction; Nausea is decreased bp 23:49 Drug: Demerol 50 mg Route: IVP; Site: left forearm; ea 06/05 01:11 Follow up: Response: No adverse reaction bp Intake: 02:11 IV: 500ml; Total: 500ml. bp Outcome: 02:08 Discharge ordered by . pkl 02:14 Discharged to home ambulatory, with family. bp 02:14 Condition: stable 02:14 Discharge instructions given to patient, family, Instructed on discharge instructions, follow up and referral plans. 02:22 Patient left the ED. bp Signatures: Dispatcher [employer] Amanda Fuentes RN RN aj Lam, Pin, MD MD pkKacie Johnston Elena, RN RN ea Peltier, Brian, RN RN bp Aparna Fox kw1
--- NOTE | 2018-06-05 02:08 | EDPHYS ---
Physician Documentation [facility] Name: Chelsea Cristobal Age: 62 yrs Sex: Female : 1955 Arrival Date: 06/04/2018 Time: 21:32 Bed 7 Private MD: ED Physician Isra Magana HPI: 06/04 22:30 This 62 yrs old Black Female presents to ER via Ambulatory with complaints of Abdominal pkl Pain. 22:30 The patient presents with abdominal pain in the lower abdomen. Onset: The pkl symptoms/episode began/occurred today. The symptoms do not radiate. Associated signs and symptoms: none. Historical: - Allergies: 21:40 Motrin; aj - Home Meds: 21:40 None [Active]; aj - PMHx: 21:40 None; aj - PSHx: 21:40 Cholecystectomy; Appendectomy; Hysterectomy; aj - Immunization history:: Adult Immunizations up to date. - Social history:: Smoking status: Patient/guardian denies using tobacco. - Ebola Screening: : Patient negative for fever greater than or equal to 101.5 degrees Fahrenheit, and additional compatible Ebola Virus Disease symptoms Patient denies exposure to infectious person Patient denies travel to an Ebola-affected area in the 21 days before illness onset No symptoms or risks identified at this time. ROS: 22:30 Eyes: Negative for injury, pain, redness, and discharge, ENT: Negative for injury, pkl pain, and discharge, Neck: Negative for injury, pain, and swelling, Cardiovascular: Negative for chest pain, palpitations, and edema, Respiratory: Negative for shortness of breath, cough, wheezing, and pleuritic chest pain. 22:30 Abdomen/GI: Positive for abdominal pain, of the right lower quadrant and left lower quadrant. 22:30 Back: Negative for acute changes. 22:30 : Negative for urinary symptoms. 22:30 MS/extremity: Negative for acute changes. 22:30 Skin: Negative for rash. 22:30 Neuro: Negative for altered mental status. Exam: 22:30 Head/Face: Normocephalic, atraumatic. Eyes: Pupils equal round and reactive to light, pkl extra-ocular motions intact. Lids and lashes normal. Conjunctiva and sclera are non-icteric and not injected. Cornea within normal limits. Periorbital areas with no swelling, redness, or edema. ENT: Nares patent. No nasal discharge, no septal abnormalities noted. Tympanic membranes are normal and external auditory canals are clear. Oropharynx with no redness, swelling, or masses, exudates, or evidence of obstruction, uvula midline. Mucous membranes moist. Neck: Trachea midline, no thyromegaly or masses palpated, and no cervical lymphadenopathy. Supple, full range of motion without nuchal rigidity, or vertebral point tenderness. No Meningismus. Chest/axilla: Normal chest wall appearance and motion. Nontender with no deformity. No lesions are appreciated. Cardiovascular: Regular rate and rhythm with a normal S1 and S2. No gallops, murmurs, or rubs. Normal PMI, no JVD. No pulse deficits. Respiratory: Lungs have equal breath sounds bilaterally, clear to auscultation and percussion. No rales, rhonchi or wheezes noted. No increased work of breathing, no retractions or nasal flaring. 22:30 Abdomen/GI: Bowel sounds: normal, Palpation: soft, mild abdominal tenderness, in the right lower quadrant and left lower quadrant. 22:30 Back: Exam negative for acute changes. 22:30 : Exam negative for acute changes. 22:30 Musculoskeletal/extremity: Exam is negative for acute changes. 22:30 Skin: Exam negative for rash. 22:30 Neuro: Orientation: is normal, Mentation: is normal, Cranial nerves: grossly normal, Motor: is normal. Vital Signs: 21:40 BP 117 / 74; Pulse 95; Resp 22; Temp 97.8; Pulse Ox 100% on R/A; Weight 95.25 kg; aj Height 5 ft. 4 in. (162.56 cm); 22:25 BP 116 / 75; Pulse 82; Resp 14; Pulse Ox 97% ; bp 23:00 BP 101 / 70; Pulse 91; Resp 14; Pulse Ox 100% ; bp 06/05 01:00 BP 113 / 64; Pulse 74; Resp 14; Pulse Ox 100% ; bp 02:00 BP 127 / 78; Pulse 77; Resp 14; Pulse Ox 98% ; bp 06/04 21:40 Body Mass Index 36.04 (95.25 kg, 162.56 cm) aj MDM: 06/04 21:45 Patient medically screened. pkl 06/05 02:06 Data reviewed: vital signs, nurses notes, lab test result(s), radiologic studies, CT pkl scan. 06/04 22:00 Order name: Amylase, Serum; Complete Time: 23:27 pkl 08/09 22:00 Order name: Basic Metabolic Panel; Complete Time: 23:27 pkl 08 22:00 Order name: CBC with Diff; Complete Time: 23:27 pkl 08 22:00 Order name: Creatinine for Radiology; Complete Time: 23:27 pkl 08 22:00 Order name: Hepatic Function; Complete Time: 23:27 pkl 08 22:00 Order name: Lipase; Complete Time: 23:27 pkl 08 22:00 Order name: Urine Microscopic Only; Complete Time: 23:27 pkl 08 22:00 Order name: CT Abd/Pelvis - W/Contrast pkl 06/04 22:12 Order name: Urine Dipstick--Ancillary (enter results); Complete Time: 23:27 ms 06/04 22:48 Order name: Urine Culture EDMS 06/04 22:00 Order name: IV Saline Lock; Complete Time: 22:04 pkl 06/04 22:00 Order name: Labs collected and sent; Complete Time: 22:04 pkl 06/04 22:00 Order name: Urine Dipstick-Ancillary (obtain specimen); Complete Time: 22:24 pkl Administered Medications: 06/04 22:13 Drug: NS 0.9% 1000 ml Route: IV; Rate: 125 ml/hr; Site: right antecubital; bp 06/05 02:11 Follow up: IV Status: Completed infusion; IV Intake: 500ml bp 06/04 22:13 Drug: morphine 4 mg Route: IVP; Site: right antecubital; bp 22:13 Follow up: Response: Pain is decreased bp 22:13 Drug: Zofran 4 mg Route: IVP; Site: right antecubital; bp 22:14 Follow up: Response: No adverse reaction; Nausea is decreased bp 23:49 Drug: Demerol 50 mg Route: IVP; Site: left forearm; ea 06/05 01:11 Follow up: Response: No adverse reaction bp Disposition: 06/05/18 02:08 Discharged to Home. Impression: Lower abdominal pain. Marked biliary ductal dilatation. - Condition is Stable. - Prescriptions for Ultram 50 mg Oral Tablet - take 1 tablet by ORAL route every 8 hours As needed; 20 tablet. - Medication Reconciliation Form, Thank You Letter, Antibiotic Education, Prescription Opioid Use form. - Follow up: Sim Bolden MD; When: 2 - 3 days; Reason: Re-evaluation by your physician. - Problem is new. - Symptoms have improved. Signatures: Dispatcher [employer] EDAmanda Hobson RN RN aj Lam, Pin, MD MD pkl Janice Hodge RN RN ea Peltier, Brian, RN RN bp Corrections: (The following items were deleted from the chart) 02:22 02:08 06/05/2018 02:08 Discharged to Home. Impression: Lower abdominal pain. Marked bp biliary ductal dilatation. Condition is Stable. Forms are Medication Reconciliation Form, Thank You Letter, Antibiotic Education, Prescription Opioid Use. Follow up: Sim Bolden; When: 2 - 3 days; Reason: Re-evaluation by your physician. Problem is new. Symptoms have improved. pkl
--- NOTE | 2018-06-05 08:18 | RAD REPORT ---
EXAM DESCRIPTION: CT - Abdomen Pelvis W Contrast - 06/05/2018 4:26 am CLINICAL HISTORY: Abdominal pain. Lower abdominal pain since 3 p.m. yesterday COMPARISON: December 2017 TECHNIQUE: Computed axial tomography of the abdomen and pelvis was obtained. 100 cc Isovue-300 is ad ministered intravenously. Oral contrast was given.A preliminary report was generated by [facility] reviewed prior to this dictation All CT scans are performed using dose optimization technique as appropriate and may include automated exposure control or mA/KV adjustment according to patient size. FINDINGS: Dilatation of the intra and extrahepatic biliary tree is without significant change. The gallbladder has been removed spleen, pancreas, adrenals and kidneys appear unremarkable. A hysterectomy has been performed. There is no evidence of diverticulitis A small umbilical hernia is present IMPRESSION: Dilatation of the biliary tree unchanged from the prior exam probably is physiologic. H owever this should be correlated clinically and with appropriate lab values
== END 2018-06-05 02:22 | disposition home or self-care (01) ==
LOC: ER 21:29
DX: K83.8 Other specified diseases of biliary tract (principal); Z88.6 Allergy status to analgesic agent
CPT/HCPCS: 36415; 74177; 80048; 80076; 81003; 81015; 82150; 83690; 85025; 87086; 87088; 99284; J2175; J2405; J7030; Q9967

== ENCOUNTER 2018-08-21 22:00 | Emergency (ER) | payer MEDICAID ==
[2018-08-21] MEDS ORDERED: FENTANYL CITR 100 MCG/2 ML ONE (22:27)
[2018-08-21] MEDS ORDERED: ONDANSETRON 4 MG/2 ML VIAL ONE (22:27)
[2018-08-21 22:44] LABS: Absolute Lymphocytes (CBC) 2.6 K/uL (0.7-4.9); Absolute Monocytes 0.4 K/uL (0.1-1.3); Absolute Neutrophil 2.7 K/uL (1.8-8.0); Basophils % 0.8 % (0-1.3); Eosinophils % 3.2 % (0-4.4); Hematocrit 35.7 % (36.0-45.0); Lymphocytes % 44.2 % (15.3-44.8); MCH 30.2 pg (27.0-35.0); MCV 89.3 fL (80-100); MPV 9.5 fL (7.6-11.3); Monocytes % 7.1 % (3.3-12.3)
[2018-08-21 23:03] LABS: Potassium 3.5 mmol/L (3.5-5.1)
--- NOTE | 2018-08-21 23:28 | ER ---
Nurse's Notes [facility] Name: Chelsea Cristobal Age: 62 yrs Sex: Female : 1955 Arrival Date: 08/21/2018 Time: 22:04 Bed 5 Private MD: Diagnosis: Pain in left upper arm-s/p fall Presentation: 08/21 22:16 Presenting complaint: Patient states: "I fell off my porch yesterday onto my left jd3 arm.". Transition of care: patient was not received from another setting of care. Onset of symptoms was August 21, 2018. Risk Assessment: Do you want to hurt yourself or someone else? Patient reports no desire to harm self or others. Initial Sepsis Screen: Does the patient meet any 2 criteria? No. Patient's initial sepsis screen is negative. Does the patient have a suspected source of infection? No. Patient's initial sepsis screen is negative. Care prior to arrival: None. 22:16 Method Of Arrival: Wheelchair jd3 22:16 Acuity: INDIO 3 jd3 Triage Assessment: 22:19 Injury Description: pt fell from standing position off of her porch onto her left arm. jd3 22:33 General: Appears uncomfortable, Behavior is cooperative. ak1 Historical: - Allergies: 22:21 Motrin; jd3 - Home Meds: 22:21 Lisinopril Oral [Active]; jd3 - PMHx: 22:21 None; jd3 - PSHx: 22:21 Appendectomy; Cholecystectomy; Hysterectomy; right ankle sx; jd3 - Immunization history:: Adult Immunizations unknown. - Social history:: Smoking status: Patient/guardian denies using tobacco. - Ebola Screening: : Patient negative for fever greater than or equal to 101.5 degrees Fahrenheit, and additional compatible Ebola Virus Disease symptoms. Screenin:14 Abuse screen: Denies threats or abuse. Denies injuries from another. Nutritional ak1 screening: No deficits noted. Tuberculosis screening: No symptoms or risk factors identified. Fall Risk None identified. Assessment: 22:14 General: Appears uncomfortable. Pain: Complains of pain in left bicep and left tricep. ak1 Neuro: No deficits noted. Cardiovascular: No deficits noted. Respiratory: No deficits noted. GI: No signs and/or symptoms were reported involving the gastrointestinal system. : No signs and/or symptoms were reported regarding the genitourinary system. EENT: No signs and/or symptoms were reported regarding the EENT system. Derm: No signs and/or symptoms reported regarding the dermatologic system. Musculoskeletal: Range of motion: pt with ROM to left fingers, left wrist. pt with pain from left elbow to left shoulder s/p fall from porch yesterday. Tenderness present in left bicep and left tricep. 23:07 Reassessment: pt c/o increased pain after x-rays, provider notified with no new orders ak1 given at this time. Vital Signs: 22:18 BP 150 / 91; Pulse 86; Resp 20 S; Temp 97.6(O); Pulse Ox 97% on R/A; Weight 95.25 kg jd3 (R); Height 5 ft. 4 in. (162.56 cm) (R); Pain 10/10; 22:34 BP 106 / 70; Pulse 89; Resp 18; Pulse Ox 100% on R/A; ak1 23:07 BP 126 / 73; Pulse 85; Resp 18; Pulse Ox 98% on R/A; ak1 22:18 Body Mass Index 36.05 (95.25 kg, 162.56 cm) jd3 ED Course: 22:04 Patient arrived in ED. ag3 22:13 Kevan Gomes PA is PHCP. cp 22:13 Narinder Abdullahi MD is Attending Physician. cp 22:14 Dyan Siegel, RN is Primary Nurse. ak1 22:14 Patient has correct armband on for positive identification. Bed in low position. Call ak1 light in reach. Side rails up X2. Pulse ox on. NIBP on. 22:17 Triage completed. jd3 22:19 Arm band placed on. jd3 22:31 Initial lab(s) drawn, by fl, sent to lab. Inserted saline lock: 22 gauge in right ak1 forearm, using aseptic technique. Blood collected. 22:48 X-ray completed. Portable x-ray completed in exam room. Patient tolerated procedure ls3 well. 22:50 XRAY Humerus LEFT In Process Unspecified. EDMS 22:50 XRAY Forearm LEFT In Process Unspecified. EDMS 23:33 No provider procedures requiring assistance completed. IV discontinued, intact, ak1 bleeding controlled, No redness/swelling at site. Pressure dressing applied. Administered Medications: 22:31 Drug: fentaNYL (PF) 25 mcg Route: IVP; Site: right forearm; ak1 23:17 Follow up: Response: No adverse reaction ak1 22:31 Drug: Zofran 4 mg Route: IVP; Site: right forearm; ak1 23:18 Follow up: Response: No adverse reaction ak1 23:17 Drug: fentaNYL (PF) 25 mcg Route: IVP; Site: left forearm; ak1 23:19 Follow up: Response: No adverse reaction ak1 Outcome: 23:28 Discharge ordered by . adrian 23:33 Discharged to home ambulatory, with family. ak1 23:33 Condition: good 23:33 Discharge instructions given to patient, family, Instructed on discharge instructions, follow up and referral plans. no drinking with medication, no driving heavy equipment, medication usage, Demonstrated understanding of instructions, follow-up care, medications, Prescriptions given X 2. 23:45 Patient left the ED. ak1 Signatures: Dispatcher [employer] EDMS Dyan Siegel RN RN ak1 Kevan Gomes PA PA cp Davies, Jonathon, RN RN jd3 Gildardo Aguirre ls3 Kathy Gutierrez ag3
--- NOTE | 2018-08-21 23:28 | EDPHYS ---
Physician Documentation [facility] Name: Chelsea Cristobal Age: 62 yrs Sex: Female : 1955 Arrival Date: 08/21/2018 Time: 22:04 Bed 5 Private MD: ED Physician Narinder Abdullahi HPI: 08/21 22:20 This 62 yrs old Black Female presents to ER via Wheelchair with complaints of Arm cp Injury. 22:20 The patient or guardian complains of injury, pain, that is acute. The complaints affect cp the left upper arm. 22:20 Context: resulted from a fall, off porch yesterday. cp 22:20 Treatment prior to arrival includes: no previous treatment. Associated signs and cp symptoms: Pertinent negatives: deformity, swelling, headache, chest pain, abdominal pain. Severity of symptoms: in the emergency department the symptoms are actually worse, moderately. Historical: - Allergies: 22:21 Motrin; jd3 - Home Meds: 22:21 Lisinopril Oral [Active]; jd3 - PMHx: 22:21 None; jd3 - PSHx: 22:21 Appendectomy; Cholecystectomy; Hysterectomy; right ankle sx; jd3 - Immunization history:: Adult Immunizations unknown. - Social history:: Smoking status: Patient/guardian denies using tobacco. - Ebola Screening: : Patient negative for fever greater than or equal to 101.5 degrees Fahrenheit, and additional compatible Ebola Virus Disease symptoms. ROS: 22:25 Constitutional: Negative for body aches, chills, fever, poor PO intake. cp 22:25 Eyes: Negative for injury, pain, redness, and discharge. cp 22:25 ENT: Negative for drainage from ear(s), ear pain, sore throat, difficulty swallowing, difficulty handling secretions. 22:25 Neck: Negative for pain with movement, pain at rest, stiffness, tenderness, bony tenderness. 22:25 Cardiovascular: Negative for chest pain, edema, palpitations. 22:25 Respiratory: Negative for cough, shortness of breath, wheezing. 22:25 Abdomen/GI: Negative for abdominal pain, nausea, vomiting, and diarrhea. 22:25 MS/extremity: Positive for pain, tenderness, of the left upper arm, Negative for decreased range of motion, deformity, paresthesias, swelling. 22:25 Skin: Negative for cellulitis, rash. 22:25 Neuro: Negative for altered mental status, headache, weakness. 22:25 All other systems are negative. Exam: 22:33 Constitutional: The patient appears in no acute distress, alert, awake, cp non-diaphoretic, non-toxic, well developed, well nourished, uncomfortable, appears in pain 22:33 Head/Face: Normocephalic, atraumatic. cp 22:33 Eyes: Periorbital structures: appear normal, Pupils: equal, round, and reactive to light and accomodation, Extraocular movements: intact throughout, Conjunctiva: normal, no exudate, no injection, Sclera: no appreciated abnormality, Lids and lashes: appear normal, bilaterally. 22:33 ENT: External ear(s): are unremarkable, Nose: is normal, Mouth: is normal, Posterior pharynx: is normal, airway is patent, no erythema, no exudate, Voice: is normal. 22:33 Neck: C-spine: vertebral tenderness, is not appreciated, crepitus, is not appreciated, ROM/movement: is normal, is supple, without pain, no range of motions limitations, no nuchal rigidity. 22:33 Chest/axilla: Inspection: normal, Palpation: is normal, no crepitus, no tenderness. 22:33 Cardiovascular: Rate: normal, Rhythm: regular, Pulses: Pulses are 2+ in left radial artery. Edema: is not appreciated, JVD: is not appreciated. 22:33 Respiratory: the patient does not display signs of respiratory distress, Respirations: normal, no use of accessory muscles, no retractions, no splinting, no tachypnea, labored breathing, is not present, Breath sounds: are clear throughout, no decreased breath sounds, no stridor, no wheezing. 22:33 Abdomen/GI: Inspection: abdomen appears normal, Palpation: abdomen is soft and non-tender, in all quadrants. 22:33 Back: ROM is normal, vertebral tenderness, is not appreciated. 22:33 Musculoskeletal/extremity: Extremities: grossly normal except: noted in the left upper arm: pain, tenderness, There is no evidence of decreased ROM, deformity, Severe pain noted. 22:33 Skin: cellulitis, is not appreciated, no rash present. 22:33 Neuro: Orientation: to person, place \T\ time. Mentation: is normal, Cerebellar function: is grossly normal, Motor: moves all fours, strength is normal, Sensation: is normal, Gait: is steady. Vital Signs: 22:18 BP 150 / 91; Pulse 86; Resp 20 S; Temp 97.6(O); Pulse Ox 97% on R/A; Weight 95.25 kg jd3 (R); Height 5 ft. 4 in. (162.56 cm) (R); Pain 10/10; 22:34 BP 106 / 70; Pulse 89; Resp 18; Pulse Ox 100% on R/A; ak1 23:07 BP 126 / 73; Pulse 85; Resp 18; Pulse Ox 98% on R/A; ak1 22:18 Body Mass Index 36.05 (95.25 kg, 162.56 cm) jd3 Procedures: 23:30 Splinting: Splint applied to left arm using sling, applied by nurse. Examined by me, cp post splint application: neurovascular intact, Patient tolerated well. MDM: 22:13 Patient medically screened. cp 23:27 Data reviewed: vital signs, nurses notes, radiologic studies, plain films. cp 23:27 Test interpretation: by ED physician or midlevel provider: plain radiologic studies. cp Counseling: I had a detailed discussion with the patient and/or guardian regarding: the historical points, exam findings, and any diagnostic results supporting the discharge/admit diagnosis, radiology results, the need for outpatient follow up, a family practitioner, to return to the emergency department if symptoms worsen or persist or if there are any questions or concerns that arise at home. Response to treatment: the patient's symptoms have markedly improved after treatment. 08/21 22:17 Order name: CBC with Diff; Complete Time: 23:09 cp 08/21 22:17 Order name: BMP; Complete Time: 23:09 cp 08/21 23:10 Interpretation: Normal except: BUN 6; GFR 89. cp 08/21 22:17 Order name: XRAY Humerus LEFT; Complete Time: 21:56 cp 08/22 21:57 Interpretation: Report reviewed. cp 08/21 22:17 Order name: XRAY Forearm LEFT; Complete Time: 21:56 cp 08/22 21:57 Interpretation: Report reviewed. cp 08/21 22:17 Order name: IV; Complete Time: 22:31 cp 08/21 23:33 Order name: Sling; Complete Time: 23:33 ak1 Administered Medications: 22:31 Drug: fentaNYL (PF) 25 mcg Route: IVP; Site: right forearm; ak1 23:17 Follow up: Response: No adverse reaction ak1 22:31 Drug: Zofran 4 mg Route: IVP; Site: right forearm; ak1 23:18 Follow up: Response: No adverse reaction ak1 23:17 Drug: fentaNYL (PF) 25 mcg Route: IVP; Site: left forearm; ak1 23:19 Follow up: Response: No adverse reaction ak1 Disposition: 08/22 00:33 Co-signature as Attending Physician, Narinder Abdullahi MD I agree with the assessment and kdr plan of care. Disposition: 08/21/18 23:28 Discharged to Home. Impression: Pain in left upper arm - s/p fall. - Condition is Stable. - Discharge Instructions: Musculoskeletal Pain. - Prescriptions for Cyclobenzaprine 10 mg Oral Tablet - take 1 tablet by ORAL route every 8 hours As needed; 20 tablet. Tramadol 50 mg Oral Tablet - take 1 tablet by ORAL route every 8 hours as needed; 20 tablet. - Medication Reconciliation Form, Thank You Letter, Antibiotic Education, Prescription Opioid Use form. - Follow up: Private Physician; When: 2 - 3 days; Reason: Recheck today's complaints. - Problem is new. - Symptoms have improved. Signatures: Dispatcher [employer] EDNarinder Matute MD MD [facility] Dyan Siegel RN RN ak1 Kevan Gomes PA PA cp Davies, Jonathon RN RN jd3 Corrections: (The following items were deleted from the chart) 08/21 23:45 23:28 08/21/2018 23:28 Discharged to Home. Impression: Pain in left upper arm - s/p ak1 fall. Condition is Stable. Forms are Medication Reconciliation Form, Thank You Letter, Antibiotic Education, Prescription Opioid Use. Follow up: Private Physician; When: 2 - 3 days; Reason: Recheck today's complaints. Problem is new. Symptoms have improved. cp
--- NOTE | 2018-08-22 08:35 | RAD REPORT ---
EXAM DESCRIPTION: RAD - Humerus Left - 08/21/2018 10:51 pm CLINICAL HISTORY: Fall, arm pain COMPARISON: None. FINDINGS: No fracture is identified. There is no dislocation or periosteal reaction noted. Minimal degenerative change seen along the AC joint and undersurface of the acromion. Curvilinear calcificati on posterior to the olecranon is believed to be related to old trauma to the triceps tendon. No gross evidence for an acute elbow joint abnormality. No air, foreign body or other suspicious soft tissue finding. IMPRESSION: Negative left humerus examination for fracture or acute process. Repeat imaging of the humerus, shoulder joint or elbow joint could be performed in 7 days if the neena ent remains symptomatic for fracture.
--- NOTE | 2018-08-22 08:36 | RAD REPORT ---
EXAM DESCRIPTION: RAD - Forearm Left - 08/21/2018 10:51 pm CLINICAL HISTORY: Fall, arm pain COMPARISON: None. FINDINGS: No fracture is identified. There is no dislocation or periosteal reaction noted. No foreign body or other soft tissue abnormality. IMPRESSION: Negative left forearm examination for acute finding. Repeat imaging in 7 days can be per formed if the patient remains symptomatic for fracture.
== END 2018-08-21 23:45 | disposition home or self-care (01) ==
LOC: ER 22:00
DX: M79.632 Pain in left forearm (principal); Z88.6 Allergy status to analgesic agent
CPT/HCPCS: 36415; 80048; 85025; 99284; J2405; J3010

== ENCOUNTER 2018-08-31 19:29 | Emergency (ER) | payer MEDICAID ==
--- NOTE | 2018-08-31 20:03 | ER ---
Nurse's Notes [facility] Name: Chelsea Cristobal Age: 62 yrs Sex: Female : 1955 Arrival Date: 08/31/2018 Time: 19:32 Bed 20 Private MD: Diagnosis: Pain in left upper arm Presentation: 08/31 19:51 Presenting complaint: Patient states: left arm pain for the last three months, x-rayed tl3 here, pain continues to get worse, unable to lift anything. Transition of care: patient was not received from another setting of care. Onset of symptoms was May 2018. Risk Assessment: Do you want to hurt yourself or someone else? Patient reports no desire to harm self or others. Initial Sepsis Screen: Does the patient meet any 2 criteria? No. Patient's initial sepsis screen is negative. Does the patient have a suspected source of infection? No. Patient's initial sepsis screen is negative. 19:51 Method Of Arrival: Ambulatory tl3 19:51 Acuity: INDIO 3 tl3 Triage Assessment: 19:42 General: Appears uncomfortable, Behavior is calm, cooperative, appropriate for age. tl3 Pain: Denies pain. Historical: - Home Meds: 19:53 Lisinopril 25 mg Oral [Active]; tl3 - PSHx: 19:53 Appendectomy; Cholecystectomy; Hysterectomy; tl3 - Immunization history:: Adult Immunizations up to date. - Social history:: Smoking status: Patient/guardian denies using tobacco, never smoked, Patient/guardian denies using. Screenin:00 Abuse screen: Denies threats or abuse. Nutritional screening: No deficits noted. jb4 Tuberculosis screening: No symptoms or risk factors identified. 20:00 Fall Risk None identified. jb4 Assessment: 20:00 General: Appears in no apparent distress. comfortable, Behavior is calm, cooperative, jb4 appropriate for age. Pain: Complains of pain in left arm Pain currently is 5 out of 10 on a pain scale. at worst was 10 out of 10 on a pain scale. Quality of pain is described as stabbing. Neuro: Level of Consciousness is awake, alert, obeys commands, Oriented to person, place, time, situation. Cardiovascular: Patient's skin is warm and dry. Respiratory: Airway is patent Respiratory effort is even, unlabored, Respiratory pattern is regular, symmetrical. GI: No signs and/or symptoms were reported involving the gastrointestinal system. : No signs and/or symptoms were reported regarding the genitourinary system. EENT: No signs and/or symptoms were reported regarding the EENT system. Derm: Skin is intact, Skin is dry, Skin is normal, Skin temperature is warm. Musculoskeletal: Circulation, motion, and sensation intact. Vital Signs: 19:53 BP 124 / 102; Pulse 102; Resp 18; Temp 98.7(O); Pulse Ox 98% ; Weight 99.79 kg; Height tl3 5 ft. 4 in. (162.56 cm); 20:26 BP 125 / 80; Pulse 76; Resp 16; Pulse Ox 100% on R/A; jb4 19:53 Body Mass Index 37.76 (99.79 kg, 162.56 cm) tl3 ED Course: 19:32 Patient arrived in ED. am2 19:37 Triage completed. tl3 19:42 Arm band placed on right wrist. tl3 19:53 Arm band placed on right wrist. tl3 19:55 [facility]itas [facility]C [facility]. snw 19:55 Kevan Vasques MD is Attending Physician. snw 20:00 Sebastian Rodriguez MD is Referral Physician. snw 20:00 Patient has correct armband on for positive identification. Bed in low position. Call jb4 light in reach. Side rails up X 1. Pulse ox on. NIBP on. 20:01 Ricardo Castañeda RN is Primary Nurse. jb4 20:20 No provider procedures requiring assistance completed. Patient did not have IV access jb4 during this emergency room visit. Administered Medications: 20:26 Drug: fentaNYL (PF) 50 mcg Route: IM; Site: right deltoid; jb4 20:26 Drug: Valium 5 mg Route: PO; jb4 Outcome: 20:03 Discharge ordered by . snw 20:20 Discharged to home ambulatory. jb4 20:20 Condition: stable 20:20 Discharge instructions given to patient, family, Instructed on discharge instructions, follow up and referral plans. medication usage, Demonstrated understanding of instructions, follow-up care, medications, Prescriptions given X 2. 20:28 Patient left the ED. jb4 Signatures: Shweta Freitas FNP-C MODEL BUILDER-Csnw Ricardo Castañeda, RN RN jb4 Be, am2 Eusebia Coronado, RN RN tl3 Corrections: (The following items were deleted from the chart) 19:42 19:41 Allergies: Motrin; tl3 tl3 19:50 19:34 Presenting complaint: Patient states: tactile fever off and on for five days, tl3 cough has gotten really bad for the last three days tl3 19:50 19:34 Transition of care: patient was not received from another setting of care. tl3 3 19:50 19:34 Onset of symptoms was August 26, 2018 tl3 tl3 19:50 19:34 Presenting complaint: tl3 tl3 19:50 19:34 Presenting complaint: tl3 3 19:50 19:34 Risk Assessment: Do you want to hurt yourself or someone else? Patient reports no tl3 desire to harm self or others. 3 19:50 19:34 Initial Sepsis Screen: Does the patient meet any 2 criteria? No. Patient's tl3 initial sepsis screen is negative. Does the patient have a suspected source of infection? No. Patient's initial sepsis screen is negative. tl3 :50 19:34 Care prior to arrival: None. tl3 tl3 19:50 19:34 Method Of Arrival: Ambulatory tl3 tl3 19:50 19:34 Acuity: INDIO 3 tl3 tl3 19:51 19:41 Home Meds: lisinopril 5 mg oral tab 2 tabs once daily; tl3 tl3 19:51 19:41 Home Meds: benzonatate 100 mg oral cap 1 cap 3 times per day; tl3 tl3 19:51 19:41 Home Meds: pantoprazole 40 mg oral TbEC 1 tab once daily; tl3 tl3 19:51 19:41 Home Meds: albuterol sulfate 90 mcg/actuation Inhl HFAA; tl3 tl3 19:51 19:41 Home Meds: albuterol sulfate 1.25 mg/3 mL Nebulizer nebu 3 mL 3-4 times daily; tl3tl3 19:51 19:41 PSHx: Appendectomy; tl3 tl3 19:51 19:41 PSHx: Cholecystectomy; tl3 tl3 19:51 19:41 PSHx: Hysterectomy; tl3 tl3 19:51 19:41 PSHx: right ankle sx; tl3 tl3 19:41 Immunization history: Adult Immunizations up to date, 3 3 19:41 Social history: Smoking status: Patient/guardian denies using tobacco, never tl3 smoked, 3 19:41 Ebola Screening: No symptoms or risks identified at this time tl3 3 19:42 Allergies: Codeine; 3 3 19:42 Allergies: Benadryl; 3 3 19:42 BP 172 / 104; Pulse 93bpm; Resp 18bpm; Pulse Ox 95% RA; Temp 98.7F; tl3 3 19:42 Height 5 ft. 0 in.; tl3 tl3
--- NOTE | 2018-08-31 20:03 | EDPHYS ---
Physician Documentation [facility] Name: Chelsea Cristobal Age: 62 yrs Sex: Female : 1955 Arrival Date: 08/31/2018 Time: 19:32 Bed 20 Private MD: ED Physician Kevan Vasques HPI: 08/31 20:07 This 62 yrs old Black Female presents to ER via Ambulatory with complaints of Arm Pain. snw 20:07 The patient or guardian complains of pain, that is chronic. The complaints affect the snw left bicep. Context: The problem was sustained at an unknown location, resulted from unknown cause. Onset: The symptoms/episode began/occurred gradually, 3 month(s) ago, and became worse today, and became persistent. Modifying factors: The symptoms are alleviated by nothing. the symptoms are aggravated by movement, lifting weight. Severity of symptoms: At their worst the symptoms were moderate, severe. The patient has experienced similar episodes in the past. The patient has not recently seen a physician. Historical: - Home Meds: 19:53 Lisinopril 25 mg Oral [Active]; tl3 - PSHx: 19:53 Appendectomy; Cholecystectomy; Hysterectomy; tl3 - Immunization history:: Adult Immunizations up to date. - Social history:: Smoking status: Patient/guardian denies using tobacco, never smoked, Patient/guardian denies using. ROS: 20:06 Constitutional: Negative for fever, chills, and weight loss, Eyes: Negative for injury, snw pain, redness, and discharge, ENT: Negative for injury, pain, and discharge, Neck: Negative for injury, pain, and swelling, Cardiovascular: Negative for chest pain, palpitations, and edema, Respiratory: Negative for shortness of breath, cough, wheezing, and pleuritic chest pain, Abdomen/GI: Negative for abdominal pain, nausea, vomiting, diarrhea, and constipation, Back: Negative for injury and pain, : Negative for injury, bleeding, discharge, and swelling, Skin: Negative for injury, rash, and discoloration, Neuro: Negative for headache, weakness, numbness, tingling, and seizure. 20:06 MS/extremity: Positive for decreased range of motion, pain, of the left arm. Exam: 20:04 Constitutional: This is a well developed, well nourished patient who is awake, alert, snw and in no acute distress. Head/Face: Normocephalic, atraumatic. Eyes: Pupils equal round and reactive to light, extra-ocular motions intact. Lids and lashes normal. Conjunctiva and sclera are non-icteric and not injected. Cornea within normal limits. Periorbital areas with no swelling, redness, or edema. ENT: Nares patent. No nasal discharge, no septal abnormalities noted. Tympanic membranes are normal and external auditory canals are clear. Oropharynx with no redness, swelling, or masses, exudates, or evidence of obstruction, uvula midline. Mucous membranes moist. Neck: Trachea midline, no thyromegaly or masses palpated, and no cervical lymphadenopathy. Supple, full range of motion without nuchal rigidity, or vertebral point tenderness. No Meningismus. Chest/axilla: Normal chest wall appearance and motion. Nontender with no deformity. No lesions are appreciated. Cardiovascular: Regular rate and rhythm with a normal S1 and S2. No gallops, murmurs, or rubs. Normal PMI, no JVD. No pulse deficits. Respiratory: Lungs have equal breath sounds bilaterally, clear to auscultation and percussion. No rales, rhonchi or wheezes noted. No increased work of breathing, no retractions or nasal flaring. Abdomen/GI: Soft, non-tender, with normal bowel sounds. No distension or tympany. No guarding or rebound. No evidence of tenderness throughout. Back: No spinal tenderness. No costovertebral tenderness. Full range of motion. Skin: Warm, dry with normal turgor. Normal color with no rashes, no lesions, and no evidence of cellulitis. Neuro: Awake and alert, GCS 15, oriented to person, place, time, and situation. Cranial nerves II-XII grossly intact. Motor strength 5/5 in all extremities. Sensory grossly intact. Cerebellar exam normal. Normal gait. Psych: Awake, alert, with orientation to person, place and time. Behavior, mood, and affect are within normal limits. 20:04 Musculoskeletal/extremity: Extremities: grossly normal except: noted in the left bicep: decreased ROM, pain, ROM: limited active range of motion due to pain, left shoulder, painful arc, Circulation is intact in all extremities. Sensation intact. Vital Signs: 19:53 BP 124 / 102; Pulse 102; Resp 18; Temp 98.7(O); Pulse Ox 98% ; Weight 99.79 kg; Height tl3 5 ft. 4 in. (162.56 cm); 20:26 BP 125 / 80; Pulse 76; Resp 16; Pulse Ox 100% on R/A; jb4 19:53 Body Mass Index 37.76 (99.79 kg, 162.56 cm) tl3 MDM: 19:56 Patient medically screened. snw 20:06 Data reviewed: vital signs, nurses notes. Data interpreted: Pulse oximetry: on room air snw is 98 %. Interpretation: normal. Counseling: I had a detailed discussion with the patient and/or guardian regarding: the historical points, exam findings, and any diagnostic results supporting the discharge/admit diagnosis, the presence of at least one elevated blood pressure reading (>120/80) during this emergency department visit, the need for outpatient follow up, to return to the emergency department if symptoms worsen or persist or if there are any questions or concerns that arise at home. Special discussion: I have referred the patient to see his PCP for further evaluation of high blood pressure. Based on the history and exam findings, there is no indication for further emergent testing or inpatient evaluation. I discussed with the patient/guardian the need to see the orthopedic surgeon for further evaluation of the symptoms. I discussed with the patient/guardian the need to see the primary care provider for further evaluation of the symptoms. Administered Medications: 20:26 Drug: fentaNYL (PF) 50 mcg Route: IM; Site: right deltoid; jb4 20:26 Drug: Valium 5 mg Route: PO; jb4 Disposition: 09/01 06:05 Co-signature as Attending Physician, Kevan Vasques MD I agree with the assessment and sung plan of care. Disposition: 08/31/18 20:03 Discharged to Home. Impression: Pain in left upper arm. - Condition is Stable. - Discharge Instructions: Musculoskeletal Pain, Cryotherapy, Heat Therapy. - Prescriptions for Tylenol- Codeine #3 300-30 mg Oral Tablet - take 2 tablets by ORAL route every 6 hours As needed; 15 tablet. orphenadrine citrate 100 mg Oral Tablet Sustained Release - take 1 tablet by ORAL route 2 times per day As needed; 20 tablet. - Medication Reconciliation Form, Thank You Letter, Antibiotic Education, Prescription Opioid Use form. - Follow up: Sebastian Rodriguez MD; When: 2 - 3 days; Reason: If symptoms return, Recheck today's complaints, Continuance of care. Signatures: Kevan Vasques MD MD cha Therrien, Shelly, CLOSED CIRCUIT SCREEN WATCHER-C CLOSED CIRCUIT SCREEN WATCHER-Csnw Ricardo Castañeda, RN RN jb4 Eusebia Coronado RN RN tl3 Corrections: (The following items were deleted from the chart) 08/31 19:42 19:41 Allergies: Motrin; tl3 tl3 19:51 19:41 Home Meds: lisinopril 5 mg oral tab 2 tabs once daily; tl3 tl3 19:51 19:41 Home Meds: benzonatate 100 mg oral cap 1 cap 3 times per day; tl3 tl3 19:51 19:41 Home Meds: pantoprazole 40 mg oral TbEC 1 tab once daily; tl3 tl3 19:51 19:41 Home Meds: albuterol sulfate 90 mcg/actuation Inhl HFAA; tl3 tl3 19:51 19:41 Home Meds: albuterol sulfate 1.25 mg/3 mL Nebulizer nebu 3 mL 3-4 times daily; tl3tl3 19:51 19:41 PSHx: Appendectomy; tl3 tl3 19:51 19:41 PSHx: Cholecystectomy; tl3 tl3 19:51 19:41 PSHx: Hysterectomy; tl3 tl3 19:51 19:41 PSHx: right ankle sx; tl3 tl3 19:51 19:41 Immunization history: Adult Immunizations up to date, tl3 tl3 19:51 19:41 Social history: Smoking status: Patient/guardian denies using tobacco, never tl3 smoked, tl3 19:51 19:41 Ebola Screening: No symptoms or risks identified at this time tl3 tl3 19:51 19:42 Allergies: Codeine; tl3 tl3 19:51 19:42 Allergies: Benadryl; tl3 tl3 20:28 20:03 08/31/2018 20:03 Discharged to Home. Impression: Pain in left upper arm. jb4 Condition is Stable. Forms are Medication Reconciliation Form, Thank You Letter, Antibiotic Education, Prescription Opioid Use. Follow up: Sebastian Rodriguez; When: 2 - 3 days; Reason: If symptoms return, Recheck today's complaints, Continuance of care. snw
[2018-08-31] MEDS ORDERED: FENTANYL CITR 100 MCG/2 ML ONE (20:24)
[2018-08-31] MEDS ORDERED: DIAZEPAM 5 MG TABLET ONE (20:24)
[2018-09-01] MEDS ORDERED: LIDOCAINE 1% MPF 30 ML VIAL ONE (12:52)
== END 2018-08-31 20:28 | disposition home or self-care (01) ==
LOC: ER 19:29
DX: M79.622 Pain in left upper arm (principal)
CPT/HCPCS: 96372; 99283; J3010

== ENCOUNTER 2018-10-10 18:19 | Observation (INO) | payer MEDICAID ==
[2018-10-10 19:15] LABS: Absolute Lymphocytes (CBC) 1.8 K/uL (0.7-4.9); Absolute Monocytes 0.4 K/uL (0.1-1.3); Absolute Neutrophil 4.3 K/uL (1.8-8.0); Basophils % 0.9 % (0-1.3); Hematocrit 39.7 % (36.0-45.0); Lymphocytes % 26.6 % (15.3-44.8); MCH 29.7 pg (27.0-35.0); MCV 89.4 fL (80-100); MPV 9.9 fL (7.6-11.3); Monocytes % 6.2 % (3.3-12.3); RBC Red Blood Cell Count 4.43 M/uL (3.86-4.86)
[2018-10-10] MEDS ORDERED: ASPIRIN 81 MG CHEWABLE TABLET ONE (19:22)
[2018-10-10 19:23] LABS: Protime INR 1.07
[2018-10-10] MEDS ORDERED: MORPHINE 4 MG/ML SYR ONE ×2 (19:23→22:41)
[2018-10-10] MEDS ORDERED: ONDANSETRON 4 MG/2 ML VIAL ONE (19:23)
[2018-10-10 19:42] LABS: ALT/SGPT 23 U/L (12-78); AST/SGOT 22 U/L (15-37); Albumin 3.9 g/dL (3.4-5.0); Alkaline Phosphatase 98 U/L (45-117); BUN Blood Urea Nitrogen 4 mg/dL (7-18); Bicarbonate 28 mmol/L (21-32); Bilirubin Direct 0.1 mg/dL (0-0.2); Bilirubin Total 0.4 mg/dL (0.2-1.0); Glucose Level 74 mg/dL (74-106); Magnesium 2.4 mg/dL (1.8-2.4); NT PRO-BNP 17 pg/mL (<125); Potassium 3.4 mmol/L (3.5-5.1); Protein, Total 8.3 g/dL (6.4-8.2); Sodium Level 139 mmol/L (136-145); Troponin (Emerg Dept Use Only) < 0.02 ng/mL (0.0-0.045)
[2018-10-10] MEDS ORDERED: KETOROLAC 30 MG/ML INJ ONE (20:25)
--- NOTE | 2018-10-10 20:52 | RAD REPORT ---
EXAM DESCRIPTION: Caryl Single View10/10/2018 7:49 pm CLINICAL HISTORY: Chest pain COMPARISON: March 2018 FINDINGS: The lungs appear clear of acute infiltrate. The heart is normal size IMPRESSION: No acute abnormalities displayed
--- NOTE | 2018-10-10 21:06 | EDPHYS ---
Physician Documentation [facility] Name: Chelsea Cristobal Age: 62 yrs Sex: Female : 1955 Arrival Date: 10/10/2018 Time: 18:21 Bed 20 Private MD: ED Physician Idris Zelaya HPI: 10/10 19:00 This 62 yrs old Black Female presents to ER via Ambulatory with complaints of Chest jmm Pain. 19:00 The patient or guardian reports chest pain that is located primarily in the substernal jmm area. Onset: gradually, this morning. The pain does not radiate. Associated signs and symptoms: Pertinent negatives: cough. The chest pain is described as sharp. This is a 62 year old female with no known chronic medical conditions that presents to the ED with substernal chest pain beginning this morning. Symptoms are worsened with lying down. Patient admits to family history of CAD, patient does not smoke. Denies recreational drug use. . Historical: - Allergies: 18:25 No Known Allergies; aj1 - Home Meds: 18:25 None [Active]; aj1 - PMHx: 18:25 None; aj1 - PSHx: 18:25 Hysterectomy; Appendectomy; aj1 - Immunization history:: Flu vaccine is not up to date. - Social history:: Smoking status: Patient/guardian denies using tobacco. - Ebola Screening: : Patient denies travel to an Ebola-affected area in the 21 days before illness onset. ROS: 19:00 Constitutional: Negative for fever, chills, and weight loss, Eyes: Negative for injury, jmm pain, redness, and discharge. 19:00 Respiratory: Negative for shortness of breath, cough, wheezing, and pleuritic chest pain, Abdomen/GI: Negative for abdominal pain, nausea, vomiting, diarrhea, and constipation, Neuro: Negative for headache, weakness, numbness, tingling, and seizure. 19:00 Cardiovascular: Positive for chest pain. 19:00 All other systems are negative. Exam: 19:00 Constitutional: This is a well developed, well nourished patient who is awake, alert, jmm and in no acute distress. Head/Face: atraumatic. Eyes: EOMI, no conjunctival erythema appreciated 19:00 Chest/axilla: Inspection: normal, Palpation: tenderness. 19:00 Cardiovascular: Rate: normal, Rhythm: regular. 19:00 Respiratory: the patient does not display signs of respiratory distress, Respirations: normal, Breath sounds: are clear throughout. 19:00 Abdomen/GI: Inspection: abdomen appears normal. 19:00 Back: ROM is normal. 19:00 Musculoskeletal/extremity: ROM: intact in all extremities. 19:00 Skin: Appearance: Color: normal in color. 19:00 Neuro: Orientation: is normal, Mentation: is normal, Memory: is normal. 19:00 Psych: Behavior/mood is pleasant, cooperative. Vital Signs: 18:25 BP 147 / 103; Pulse 100; Resp 18; Temp 97.6; Pulse Ox 100% on R/A; Weight 89.36 kg (R); aj1 Height 5 ft. 4 in. (162.56 cm) (R); Pain 8/10; 19:02 BP 130 / 93; Pulse 99; Resp 19; Pulse Ox 100% on R/A; em 20:30 BP 154 / 99; Pulse 93; Resp 18 S; Pulse Ox 99% on R/A; cc3 21:25 BP 148 / 87; Pulse 95; Resp 19 S; Pulse Ox 99% on R/A; cc3 22:06 BP 142 / 88; Pulse 94; Resp 18 S; Pulse Ox 99% on R/A; cc3 22:50 BP 139 / 87; Pulse 91; Resp 19 S; Pulse Ox 99% on R/A; cc3 18:25 Body Mass Index 33.81 (89.36 kg, 162.56 cm) aj1 MDM: 19:00 Patient medically screened. [facility] 20:34 The patient was given aspirin in the Emergency Department. Data reviewed: vital signs, [facility] nurses notes, lab test result(s), EKG, radiologic studies, plain films. 21:03 ED course: I discussed the patient with Dr. Bowling whom accepted admission. [facility] 10/10 19:01 Order name: Basic Metabolic Panel; Complete Time: 19:45 [facility] 10/10 19: Order name: CBC with Diff; Complete Time: 19:26 [facility] 10/10 19: Order name: LFT's; Complete Time: 19:45 [facility] 10/10 19: Order name: Magnesium; Complete Time: 19:45 [facility] 10/10 19:01 Order name: NT PRO-BNP; Complete Time: 19:45 [facility] 10/10 19:01 Order name: PT-INR; Complete Time: 19:38 [facility] 10/10 19:01 Order name: Troponin (emerg Dept Use Only); Complete Time: 19:45 [facility] 10/10 19:01 Order name: XRAY Chest (1 view); Complete Time: 21:03 [facility] 10/10 19:01 Order name: EKG; Complete Time: 19:01 [facility] 10/10 19:01 Order name: Cardiac monitoring; Complete Time: 19:03 [facility] 10/10 19:01 Order name: EKG - Nurse/Tech; Complete Time: 19:02 [facility] 10/10 19:01 Order name: IV Saline Lock; Complete Time: 19:11 [facility] 10/10 19:01 Order name: Labs collected and sent; Complete Time: 19:11 [facility] 10/10 19:01 Order name: O2 Per Protocol; Complete Time: 19:04 [facility] 10/10 19:01 Order name: O2 Sat Monitoring; Complete Time: 19:04 [facility] Administered Medications: 19:15 Drug: Aspirin Chewable Tablet 324 mg Route: PO; cc3 20:00 Follow up: Response: No adverse reaction cc3 19:16 Drug: Zofran 4 mg Route: IVP; Site: right antecubital; cc3 20:00 Follow up: Response: No adverse reaction; Nausea is decreased cc3 19:20 Drug: morphine 4 mg Route: IVP; Site: right antecubital; cc3 20:00 Follow up: Response: No adverse reaction; Pain is unchanged, physician notified cc3 20:15 Drug: Ketorolac 30 mg Route: IVP; Site: right antecubital; cc3 21:00 Follow up: Response: No adverse reaction; Pain is decreased cc3 22:30 Drug: morphine 4 mg Route: IVP; Site: right antecubital; cc3 23:00 Follow up: Response: No adverse reaction; Pain is decreased cc3 Disposition: 10/11 07:34 Co-signature as Attending Physician, Idris Zelaya MD. gs Disposition: 10/10/18 21:05 Hospitalization ordered by Nahun Huang for Observation. Preliminary diagnosis is Chest pain, unspecified. - Bed requested for Telemetry/MedSurg (observation). - Status is Observation. cc3 - Condition is Stable. - Problem is new. - Symptoms are unchanged. UTI on Admission? No Signatures: Dispatcher [employer] EDKhloe Rivera RN RN aj1 Aparna Jamison RN RN Shweta Santana, TAP AND DIE MAKER TECHNICIAN-C TAP AND DIE MAKER TECHNICIAN-Csnw Abiodun Jara PA PA jmm Starr, Gregory, MD MD gs Cordel, Charlene cc3 Corrections: (The following items were deleted from the chart) 10/10 22:03 21:05 Hospitalization Ordered by Nahun Huang MD for Observation. Preliminary diagnosis is Chest pain, unspecified. Bed requested for Telemetry/MedSurg (observation). Status is Observation. Condition is Stable. Problem is new. Symptoms are unchanged. UTI on Admission? No. [facility] 23:07 22:03 10/10/2018 21:05 Hospitalization Ordered by Nahun Huang MD for Observation. cc3 Preliminary diagnosis is Chest pain, unspecified. Bed requested for Telemetry/MedSurg (observation). Status is Observation. Condition is Stable. Problem is new. Symptoms are unchanged. UTI on Admission? No. kl
--- NOTE | 2018-10-10 21:06 | ER ---
Nurse's Notes [facility] Name: Chelsea Cristobal Age: 62 yrs Sex: Female : 1955 Arrival Date: 10/10/2018 Time: 18:21 Bed 20 Private MD: Diagnosis: Chest pain, unspecified Presentation: 10/10 18:24 Presenting complaint: Patient states: Left sided chest pain for the past 6 and a half aj1 hours that has been intermittent. Pain does not radiate. Denies dizziness, palpitations. Also reports SOB. Transition of care: patient was not received from another setting of care. Onset of symptoms was October 10, 2018 at 12:00. Risk Assessment: Do you want to hurt yourself or someone else? Patient reports no desire to harm self or others. Initial Sepsis Screen: Does the patient meet any 2 criteria? No. Patient's initial sepsis screen is negative. Does the patient have a suspected source of infection? No. Patient's initial sepsis screen is negative. Care prior to arrival: None. 18:24 Method Of Arrival: Ambulatory aj1 18:24 Acuity: INDIO 3 aj1 Triage Assessment: 18:25 General: Appears in no apparent distress. uncomfortable, Behavior is calm, cooperative, aj1 appropriate for age. Pain: Complains of pain in anterior aspect of left upper chest Pain does not radiate. Pain currently is 8 out of 10 on a pain scale. Quality of pain is described as sharp, Pain began 6 and a half hours ago Is intermittent. Neuro: Level of Consciousness is awake, alert, obeys commands. Cardiovascular: Reports chest pain, Patient's skin is warm and dry. Respiratory: Reports shortness of breath Airway is patent Respiratory effort is even, unlabored, Respiratory pattern is regular, symmetrical. Historical: - Allergies: 18:25 No Known Allergies; aj1 - Home Meds: 18:25 None [Active]; aj1 - PMHx: 18:25 None; aj1 - PSHx: 18:25 Hysterectomy; Appendectomy; aj1 - Immunization history:: Flu vaccine is not up to date. - Social history:: Smoking status: Patient/guardian denies using tobacco. - Ebola Screening: : Patient denies travel to an Ebola-affected area in the 21 days before illness onset. Screenin:34 Abuse screen: Denies threats or abuse. Nutritional screening: No deficits noted. em Tuberculosis screening: No symptoms or risk factors identified. Fall Risk None identified. Assessment: 18:45 General: Appears in no apparent distress. comfortable, Behavior is calm, cooperative, em Denies fever. Pain: Complains of pain in mid-sternal area Pain radiates to left arm Pain currently is 8 out of 10 on a pain scale. Quality of pain is described as pressure. Neuro: Level of Consciousness is awake, alert, obeys commands, Oriented to person, place, time, situation. Cardiovascular: Reports chest pain, Denies nausea, vomiting, Patient's skin is warm and dry. Respiratory: Airway is patent Respiratory effort is even, unlabored, Respiratory pattern is regular, symmetrical, Breath sounds are clear bilaterally. GI: Patient currently denies nausea, vomiting. : No signs and/or symptoms were reported regarding the genitourinary system. EENT: No signs and/or symptoms were reported regarding the EENT system. Derm: Skin is intact, Skin is pink, warm \T\ dry. Musculoskeletal: Range of motion: limited in left elbow. 19:00 General: The previous assessment is accurate, call light remains within reach. . ss 19:15 Reassessment: Patient appears in no apparent distress at this time. Patient and/or cc3 family updated on plan of care and expected duration. Pain level reassessed. Patient is alert, oriented x 3, equal unlabored respirations, skin warm/dry/pink. Received this female patient from morning shift [facility] as a case of chest pain. With IV cannula gauge 22 at the right ACV saline locked. 20:20 Reassessment: Patient appears in no apparent distress at this time. Patient and/or cc3 family updated on plan of care and expected duration. Pain level reassessed. Patient is alert, oriented x 3, equal unlabored respirations, skin warm/dry/pink. 21:17 Reassessment: Patient appears in no apparent distress at this time. Patient and/or cc3 family updated on plan of care and expected duration. Pain level reassessed. Patient is alert, oriented x 3, equal unlabored respirations, skin warm/dry/pink. 22:35 Reassessment: Patient appears in no apparent distress at this time. Patient and/or cc3 family updated on plan of care and expected duration. Pain level reassessed. Patient is alert, oriented x 3, equal unlabored respirations, skin warm/dry/pink. Room available in 204, report handed over to RN Kath Arreaga for continuity of care. 23:07 Reassessment: Patient appears in no apparent distress at this time. Patient and/or cc3 family updated on plan of care and expected duration. Pain level reassessed. Patient is alert, oriented x 3, equal unlabored respirations, skin warm/dry/pink. Patient left ER for admission vitally stable by wheelchair escorted by home appliance technician Howard and the patient's son. Vital Signs: 18:25 BP 147 / 103; Pulse 100; Resp 18; Temp 97.6; Pulse Ox 100% on R/A; Weight 89.36 kg (R); aj1 Height 5 ft. 4 in. (162.56 cm) (R); Pain 8/10; 19:02 BP 130 / 93; Pulse 99; Resp 19; Pulse Ox 100% on R/A; em 20:30 BP 154 / 99; Pulse 93; Resp 18 S; Pulse Ox 99% on R/A; cc3 21:25 BP 148 / 87; Pulse 95; Resp 19 S; Pulse Ox 99% on R/A; cc3 22:06 BP 142 / 88; Pulse 94; Resp 18 S; Pulse Ox 99% on R/A; cc3 22:50 BP 139 / 87; Pulse 91; Resp 19 S; Pulse Ox 99% on R/A; cc3 18:25 Body Mass Index 33.81 (89.36 kg, 162.56 cm) aj ED Course: 18:21 Patient arrived in ED. as 18:24 Triage completed. aj1 18:25 Arm band placed on Patient placed in an exam room. aj1 18:34 Abiodun Jara PA is PHCP. [facility] 18:34 Idris Zelaya MD is Attending Physician. [facility] 18:34 Patient has correct armband on for positive identification. Placed in gown. Bed in low em position. Call light in reach. Side rails up X2. Adult w/ patient. patient monitor on. Pulse ox on. NIBP on. 18:34 Patient maintains SpO2 saturation greater than 95% on room air. em 18:41 Warm blanket given. Pillow given. jp3 18:41 EKG done, by ED staff, reviewed by Abiodun PRICE. jp3 19:00 Initial lab(s) drawn, by me, sent to lab. Inserted saline lock: 22 gauge in right em antecubital area, using aseptic technique. Blood collected. 19:01 Anders Ross LVN is Primary Nurse. em 19:49 XRAY Chest (1 view) In Process Unspecified. EDMS 21:04 Nahun Huang MD is Hospitalizing Provider. [facility] 23:07 No provider procedures requiring assistance completed. Patient admitted, IV remains in cc3 place. Administered Medications: 19:15 Drug: Aspirin Chewable Tablet 324 mg Route: PO; cc3 20:00 Follow up: Response: No adverse reaction cc3 19:16 Drug: Zofran 4 mg Route: IVP; Site: right antecubital; cc3 20:00 Follow up: Response: No adverse reaction; Nausea is decreased cc3 19:20 Drug: morphine 4 mg Route: IVP; Site: right antecubital; cc3 20:00 Follow up: Response: No adverse reaction; Pain is unchanged, physician notified cc3 20:15 Drug: Ketorolac 30 mg Route: IVP; Site: right antecubital; cc3 21:00 Follow up: Response: No adverse reaction; Pain is decreased cc3 22:30 Drug: morphine 4 mg Route: IVP; Site: right antecubital; cc3 23:00 Follow up: Response: No adverse reaction; Pain is decreased cc3 Outcome: 21:05 Decision to Hospitalize by Provider. [facility] 22:35 Admitted to Med/surg accompanied by tech, family with patient, via wheelchair, room cc3 204, with chart, Report called to JIGNESH Arreaga 22:35 Condition: stable 22:35 Instructed on the need for admit, Demonstrated understanding of instructions. 23:07 Patient left the ED. cc3 Signatures: Dispatcher [employer] EDMS Khloe Perry RN RN Abiodun Prasad PA PA [facility] Anders Ross LVN LVN em Cely Ricardo Shelby, RN RN ss Pisarski, Jacob jp3 Do Payne cc3
--- NOTE | 2018-10-10 21:48 | P.HP ---
Certification for Inpatient Patient admitted to: Observation With expected LOS: <2 Midnights Practitioner: I am a practitioner with admitting privileges, knowledge of patient current condition, hospital course, and medical plan of care. Services: Services provided to patient in accordance with Admission requirements found in Title 42 Section 412.3 of the Code of Federal Regulations Patient History Date of Service: 10/10/18 Reason for admission: chest pain History of Present Illness: Ms Cristobal is a 62 years old woman with pretty benign past medical history, she does not take medications at home, came to ED complaining of chest pain, started about 6 hours prior to arrival. The pain is stubbing, substernal area, 8 /10 of intensity, exacerbated with chest movement, associated with SOB. She denied nausea, vomiting, diaphoresis or palpitation. She is also complaining of left arm pain, started 3 month ago. She is unable to rice, abduct her left arm, feels weakness on this extremity. At arrival, EKG shows no acute ST-T abnormalities, initial trop I is negative. She has had similar chest pain episode back in 1998. No fever or chills. Allergies ibuprofen [From Motrin] Allergy (Intermediate, Verified 02/24/13 20:24) Itching/Hives/Rash prochlorperazine edisylate [From Compazine] Allergy (Intermediate, Verified 11/08 20:24) Shortness of breath prochlorperazine maleate [From Compazine] Allergy (Intermediate, Verified 20:24) Shortness of breath No Known Allergy (Uncoded 06/29/17 17:28) Unknown No Known Allergies Allergy (Uncoded 11/18/17 03:43) Unknown Home medications list reviewed: Yes - Past Medical/Surgical History Past Medical History: Reviewed- Non-Contributory Past Surgical History: Reviewed- Non-Contributory - Family History Family History: Reviewed- Non-Contributory - Social History Smoking Status: Never smoker Alcohol use: No CD- Drugs: No Place of Residence: Home Review of Systems 10-point ROS is otherwise unremarkable Physical Examination - Physical Exam General: Alert, In no apparent distress HEENT: Atraumatic, PERRLA, Mucous membr. moist/pink, EOMI, Sclerae nonicteric Neck: Supple, 2+ carotid pulse no bruit, No LAD, Without JVD or thyroid abnormality Respiratory: Clear to auscultation bilaterally, Normal air movement Cardiovascular: Regular rate/rhythm, Normal S1 S2 Gastrointestinal: Normal bowel sounds, No tenderness Musculoskeletal: Tenderness (left arm at abduction or lifting the arm.) Integumentary: No rashes Neurological: Normal speech, Normal strength at 5/5 x4 extr, Normal tone, Normal affect Lymphatics: No axilla or inguinal lymphadenopathy - Studies Laboratory Data (last 24 hrs) 10/10/18 19:05: PT 12.6 H, INR 1.07 10/10/18 19:05: WBC 6.6, Hgb 13.2, Hct 39.7, Plt Count 329 10/10/18 19:05: Sodium 139, Potassium 3.4 L, BUN 4 L, Creatinine 0.90, Glucose 74, Magnesium 2.4, Total Bilirubin 0.4, AST 22, ALT 23, Alkaline Phosphatase 98 Assessment and Plan - Problems (Diagnosis) (1) Chest pain Current Visit: Yes Status: Acute Qualifiers: Chest pain type: intercostal pain Qualified Code(s): R07.82 - Intercostal pain (2) Left shoulder pain Current Visit: Yes Status: Acute Qualifiers: Chronicity: chronic Qualified Code(s): M25.512 - Pain in left shoulder; G89.29 - Other chronic pain - Plan The patient will be admitted to the hospital due to chest pain. Seems to be atypical per presentation. However, will follow the protocol and order serial cardiac enzymes and EKG. Will consult cardiology for evaluation and recommendations. Regarding left shoulder pain, consider rotator caff tear. Will start work up with a plain xr. Order pain medication. - Advance Directives Does patient have a Living Will: No Does patient have a Durable POA for Healthcare: No - Code Status/Comfort Care Code Status Assessed: Yes Code Status: Full Code
[2018-10-10] MEDS ORDERED: TRAMADOL HCL 50 MG TAB PO ONE (23:14)
[2018-10-10] MEDS ORDERED: ONDANSETRON 4 MG/2 ML VIAL IV PRN (23:14)
[2018-10-11 00:38] LABS: Urine Appearance CLEAR; Urine Bilirubin NEGATIVE (NEG); Urine Blood 1+ (NEG); Urine Color YELLOW; Urine Glucose NEGATIVE (NEG); Urine Protein NEGATIVE (NEG); Urine Specific Gravity <=1.005 (1.005-1.030); Urine Urobilinogen 0.2 mg/dL (0.2-1.0)
[2018-10-11 00:43] LABS: Urine Microscopic Reflex ORDER UMIC
[2018-10-11 01:23] LABS: Urine Bacteria <20 /HPF (<20); Urine Culture Reflex Order REFLEXED; Urine RBC <5 /HPF (NONE SEEN)
[2018-10-11] MEDS: KETOROLAC 30 MG/ML INJ IV PRN ×2 (03:35→09:20)
--- NOTE | 2018-10-11 06:07 | EKG ---
Test Date: 2018-10-10 Test Time: 18:32:09 Environmental Compliance Engineer: MANI MEASUREMENT RESULTS: Intervals: Rate: 94 GA: 148 QRSD: 84 QT: 344 QTc: 430 Senath: P: 47 GA: 148 QRS: -16 T: 34 INTERPRETIVE STATEMENTS: Normal sinus rhythm Voltage criteria for left ventricular hypertrophy Abnormal ECG Compared to ECG 03/28/2018 23:18:36 No significant changes Electronically Signed On 10-11-18 06:07:02 [employer]ATOR [employer] by Santo Garcia
[2018-10-11 07:10] LABS: Potassium 3.2 mmol/L (3.5-5.1)
--- NOTE | 2018-10-11 07:10 | RAD REPORT ---
EXAM DESCRIPTION: RAD - Shoulder Left 2 View - 10/10/2018 11:40 pm CLINICAL HISTORY: Left shoulder pain FINDINGS: No fracture or dislocation is seen. No bone or joint abnormality seen
[2018-10-11] MEDS: ACETAMINOPHEN 500 MG TAB PO PRN ×2 (08:03→14:39)
[2018-10-11] MEDS ORDERED: ASPIRIN 81 MG CHEWABLE TABLET PO SCH (09:00)
[2018-10-11] MEDS ORDERED: ENOXAPARIN 40 MG/0.4 ML SQ SCH (09:00)
[2018-10-11] MEDS: KCL 20 MEQ/100 mL IVPB 20 MEQ/100 ML BAG IV SCH ×2 (09:22→11:37)
[2018-10-11] MEDS ORDERED: NA CHLORIDE 0.9% 250 ML ONE (09:27)
--- NOTE | 2018-10-11 11:31 | EKG ---
Test Date: 2018-10-11 Test Time: 01:38:05 Patient Consumer Marketer: RT MEASUREMENT RESULTS: Intervals: Rate: 83 OH: 148 QRSD: 68 QT: 378 QTc: 444 Harwood: P: 30 OH: 148 QRS: -20 T: 8 INTERPRETIVE STATEMENTS: Normal sinus rhythm Voltage criteria for left ventricular hypertrophy Abnormal ECG Compared to ECG 10/10/2018 18:32:09 No significant changes Electronically Signed On 10-11-18 11:30:54 ROUGH ROUNDER by Santo Garcia
--- NOTE | 2018-10-11 12:23 | CON ---
A 62-year-old woman. Chief Complaint: Chest pain. History Of Present Illness: Mrs. Cristobal started having chest pain just yesterday. Her shortness of b reath and sweating that goes along with it. She has good exertional intolerance. She does not have pleuritic chest pain. She does not really think her heart was racing or skipping. She has had 2 or 3 spells over the last 24 hour period. She has no prior history of myocardial infarction, stroke, di abetes, hypertension, dyslipidemia. Social History: She uses no tobacco. Medications: No medicines at home. Allergies: NO ALLERGIES. Physical Examination: Vital Signs: 5 feet, 4 inches. 197 pounds. Her blood pressure is 128/83, pulse 90. HEENT: Unremarkable. Neck: Carotids, no bruit. Lungs: Clear. Cardiac: Normal. Abdomen: Soft. Extremities: Normal. Laboratory Data: Creatinine 1.0. Troponins all less than 0.02. Complete blood count normal. Her e lectrocardiogram looks abnormal with low voltage for LVH, but no ST changes. Recommendations: My recommendation is that we do a nuclear stress test. The patient really does not want to do a pharmacologic nuclear stress and an echo. If those are normal, she could be discharged home. CAS/KADEN Voice ID: [id number] Report ID: [id number]
--- NOTE | 2018-10-11 17:34 | PN ---
Date of Progress Note: 10/11/2018 Subjective: The patient is seen and examined. Chart reviewed and case discussed with RN. The patie nt denies any active chest pain. Treatment plan explained. All questions answered. Medications: List reviewed. Physical Examination: Vital Signs: Temperature 97.3, heart rate 90, blood pressure 128/82, respirations 18, O2 of 97% on r oom air. General: Awake, alert, oriented x3, not in any acute distress. Obese female. CV: S1, S2. Regular rate and rhythm. Peripheral pulses present. No murmurs. Respiratory: Clear to auscultation bilaterally. No wheezing or stridor. No use of accessory muscle s. Gastrointestinal: Abdomen is soft, nontender, nondistended. Positive bowel sounds. Extremities: No clubbing, cyanosis, or edema. Neurologic: Nonfocal. Skin: No rashes. Normal skin turgor. Laboratory Data: Sodium 140, potassium 3.2, chloride 105, CO2 28, BUN 6, creatinine 1, glucose 104, calcium 8.6. Troponin less than 0.02 x3. Urine culture is pending. EKG normal sinus rhythm, rate o f 83, left ventricular hypertrophy. Shoulder x-ray, personally reviewed, shows no fracture or disloc ation. Assessment: A 62-year-old female with: 1.Chest pain, acute coronary syndrome ruled out. Appreciate Dr. Garcia' input. He recommends cardi ac stress test and echocardiogram. We will continue to monitor and continue chest pain guidelines. 2.Left shoulder pain. X-ray does not show any acute fractures. We will continue to monitor. The p atient may have some musculoskeletal pain or injury. 3.Obesity, body mass index of 33. Counseled. 4.Hypokalemia. We will replace and monitor. 5.Hypertensive heart disease. EKG shows voltage criteria for left ventricular hypertrophy. We will follow up with echocardiogram. 6.Gastrointestinal and deep vein thrombosis prophylaxis addressed. Plan: Obtain echocardiogram, stress test in a.m. Discharge once negative. SA/MODL Voice ID: [id number] Report ID: [id number]
--- NOTE | 2018-10-11 17:42 | P.DS ---
Admission Date: 10/10/18 Discharge Date: 10/11/18 Disposition: AMA-LEFT AGAINST MEDICAL ADVIC Discharge Condition: FAIR Reason for Admission: chest pain Consultations: Cardiology Dr. Garcia Procedures: none - Problems (1) Chest pain Status: Acute Qualifiers: Chest pain type: intercostal pain Qualified Code(s): R07.82 - Intercostal pain (2) Hypokalemia Status: Acute (3) Obesity (BMI 30.0-34.9) Status: Acute (4) Left shoulder pain Status: Acute Qualifiers: Chronicity: chronic Qualified Code(s): M25.512 - Pain in left shoulder; G89.29 - Other chronic pain Brief History of Present Illness: Pt is a 62 yo F with no PMHx who comes in with chest pain and left shoulder discomfort. Hospital Course: Patient is a 62 yo F with no PMHx who comes in with chest pain and left shoulder discomfort. Patient was worked up for ACS. She was placed on chest pain guidelines. Her cardiac enzymes and EKG were negative and ACS was ruled out. Patient was seen by Dr. Garcia with cardiology and stress test and echo was recommended. Patients chest pain had resolved. Patient did have hypokalemia which was repleted. She otherwise did well over the course of the hospital stay. Her shoulder x-ray was negative for fractures. Likely has rotator cuff pathology and will need MRI as outpt. 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 Patient was counseled not to leave AMA. She understands the risks of leaving including worsening condition, heart attack or even . She signed out AMA. Family at bedside. Vital Signs/Physical Exam: Temp Pulse Resp BP Pulse Ox 97.9 F 82 20 150/82 H 99 10/11/18 16:00 10/11/18 16:00 10/11/18 16:00 10/11/18 16:00 10/11/18 16:00 Other Physical/Emotional Findings: FOR PHYSICAL EXAM FINDINGS PLEASE SEE DICTATED PROGRESS NOTE ON DAY OF DISCHARGE. Laboratory Data at Discharge: WBC 6.6 K/uL (4.3-10.9) 10/10/18 19:05 Hgb 13.2 g/dL (12.0-15.0) 10/10/18 19:05 Hct 39.7 % (36.0-45.0) 10/10/18 19:05 Plt Count 329 K/uL (152-406) 10/10/18 19:05 PT 12.6 SECONDS (9.5-12.5) H 10/10/18 19:05 INR 1.07 10/10/18 19:05 Sodium 140 mmol/L (136-145) 10/11/18 06:38 Potassium 3.2 mmol/L (3.5-5.1) L 10/11/18 06:38 BUN 6 mg/dL (7-18) L 10/11/18 06:38 Creatinine 1.00 mg/dL (0.55-1.3) 10/11/18 06:38 Glucose 104 mg/dL (74-106) 10/11/18 06:38 Magnesium 2.4 mg/dL (1.8-2.4) 10/10/18 19:05 Total Bilirubin 0.4 mg/dL (0.2-1.0) 10/10/18 19:05 AST 22 U/L (15-37) 10/10/18 19:05 ALT 23 U/L (12-78) 10/10/18 19:05 Alkaline Phosphatase 98 U/L (45-117) 10/10/18 19:05 Troponin I < 0.02 ng/mL (0.0-0.045) 10/11/18 07:59 Home Medications: NK [No Home Meds] 10/10/18
== END 2018-10-11 17:18 | disposition left against medical advice (07) ==
LOC: ER 18:19 → ERHOLD 21:38 → 2ND 22:39
PROVIDERS: ADMIT Internal Medicine; ATTEND Internal Medicine
DX: R07.9 Chest pain, unspecified (principal); E87.6 Hypokalemia; M25.512 Pain in left shoulder; E66.9 Obesity, unspecified; Z68.33 Body mass index [BMI] 33.0-33.9, adult; Z53.21 Procedure and treatment not carried out due to patient leaving prior to being seen by health care provider
CPT/HCPCS: 36415; 71045; 80048; 80076; 81003; 81015; 83735; 83880; 84484; 85025; 85610; 87086; 87088; 93005; 96374; 96375; 99285; G0378; J1650; J2405

== ENCOUNTER 2018-11-02 20:02 | Emergency (ER) | payer MEDICAID ==
[2018-11-02] MEDS ORDERED: ONDANSETRON 4 MG/2 ML VIAL ONE (20:52)
[2018-11-02] MEDS ORDERED: NA CHLORIDE 0.9% 1,000 ML ONE (20:52)
[2018-11-02] MEDS ORDERED: MORPHINE 4 MG/ML SYR ONE ×2 (20:52→21:46)
[2018-11-02 21:05] LABS: Absolute Monocytes 0.5 K/uL (0.1-1.3); Absolute Neutrophil 5.9 K/uL (1.8-8.0); Basophils % 0.9 % (0-1.3); Eosinophils % 0.6 % (0-4.4); Hematocrit 36.8 % (36.0-45.0); Monocytes % 5.4 % (3.3-12.3); RBC Red Blood Cell Count 4.06 M/uL (3.86-4.86)
[2018-11-02 21:22] LABS: ALT/SGPT 14 U/L (12-78); AST/SGOT 11 U/L (15-37); Albumin 3.5 g/dL (3.4-5.0); Alkaline Phosphatase 93 U/L (45-117); BUN Blood Urea Nitrogen 6 mg/dL (7-18); Bicarbonate 30 mmol/L (21-32); Bilirubin Direct 0.1 mg/dL (0-0.2); Bilirubin Total 0.4 mg/dL (0.2-1.0); Glucose Level 89 mg/dL (74-106); Lipase 133 U/L (73-393); Potassium 3.5 mmol/L (3.5-5.1); Protein, Total 7.7 g/dL (6.4-8.2); Sodium Level 146 mmol/L (136-145)
[2018-11-02 21:28] LABS: Urine Blood 2+ (NEG); Urine Glucose NEGATIVE (NEG); Urine Protein TRACE (NEG)
--- NOTE | 2018-11-02 22:03 | RAD REPORT ---
EXAM DESCRIPTION: CTAbdomen Pelvis W Contrast - 11/02/2018 9:52 pm CLINICAL HISTORY: Abdominal pain. iv contrast only;Abd pain COMPARISON: Abdomen Pelvis W Contrast dated 06/04/2018; Abdomen Pelvis W Contrast dated 12/28/2017; Abdomen Pelvis W Contrast dated 11/17/2017 TECHNIQUE: Biphasic CT imaging of the abdomen and pelvis was performed with 100 ml non-ionic IV cont rast. All CT scans are performed using dose optimization technique as appropriate and may include automated exposure control or mA/KV adjustment according to patient size. FINDINGS: The lung bases are clear.Cholecystectomy clips are noted. The intrahepatic biliary tree common bile duct appears prominent, but unchanged since comparative tony dy. No focal liver mass seen. The spleen, pancreas adrenal glands and kidneys are within normal limit s. No bowel obstruction, free air, free fluid or abscess. Moderate fecal retention in the colon. Appende ctomy. Small fat containing umbilical hernia. No evidence of significant lymphadenopathy. Mild lumbar degenerative changes are seen with vacuum disc degeneration. IMPRESSION: No acute intra-abdominal or pelvic finding.
[2018-11-02 23:05] LABS: Urine Bacteria <20 /HPF (<20); Urine Culture Reflex Order REFLEXED; Urine Mucus MOD /HPF (NONE SEEN)
[2018-11-02 23:06] LABS: Calcium Oxalate Crystals- Ur FEW (NONE SEEN)
--- NOTE | 2018-11-02 23:13 | ER ---
Nurse's Notes [facility] Name: Chelsea Cristobal Age: 62 yrs Sex: Female : 1955 Arrival Date: 11/02/2018 Time: 20:05 Bed 30 Private MD: Diagnosis: Generalized abdominal pain Presentation: 11/02 20:07 Presenting complaint: Patient states: I have had abd pain all day but it got much worse la1 2 hours ago, pt states normal bowel mvmnt, no vomiting. Transition of care: patient was not received from another setting of care. Onset of symptoms was November 02, 2018. Risk Assessment: Do you want to hurt yourself or someone else? Patient reports no desire to harm self or others. Initial Sepsis Screen: Does the patient meet any 2 criteria? No. Patient's initial sepsis screen is negative. Does the patient have a suspected source of infection? No. Patient's initial sepsis screen is negative. Care prior to arrival: None. 20:07 Method Of Arrival: Wheelchair la1 20:07 Acuity: INDIO 3 la1 Historical: - Allergies: 20:08 No Known Allergies; la1 - Home Meds: 20:08 None [Active]; la1 - PMHx: 20:08 None; la1 - PSHx: 20:08 Cholecystectomy; Appendectomy; Hysterectomy; la1 - Immunization history:: Adult Immunizations up to date. - Social history:: Smoking status: Patient/guardian denies using tobacco. - Ebola Screening: : No symptoms or risks identified at this time. Screenin:19 Abuse screen: Denies threats or abuse. Nutritional screening: No deficits noted. ea Tuberculosis screening: No symptoms or risk factors identified. Fall Risk None identified. Assessment: 20:30 General: Appears uncomfortable, Behavior is calm, cooperative, appropriate for age. ea Pain: Complains of pain in epigastric area. Neuro: Level of Consciousness is awake, alert, obeys commands, Oriented to person, place, time, situation. Cardiovascular: Patient's skin is warm and dry. Respiratory: Airway is patent Respiratory effort is even, unlabored, Respiratory pattern is regular, symmetrical, Breath sounds are clear bilaterally. GI: Abdomen is non-distended, Bowel sounds present X 4 quads. Abdomen is tender to palpation in suprapubic area. Derm: Skin is pink, warm \T\ dry. Musculoskeletal: Circulation, motion, and sensation intact. 22:41 Reassessment: Patient and/or family updated on plan of care and expected duration. Pain ea level reassessed. Patient is alert, oriented x 3, equal unlabored respirations, skin warm/dry/pink. 23:39 Reassessment: Patient and/or family updated on plan of care and expected duration. Pain ea level reassessed. Patient is alert, oriented x 3, equal unlabored respirations, skin warm/dry/pink. Discharge instructions given to patient, verbalized the understanding of instruction. Patient states symptoms have improved. Vital Signs: 20:08 BP 122 / 99; Pulse 109; Resp 18; Temp 98.9; Pulse Ox 98% on R/A; Weight 91.17 kg; la1 Height 5 ft. 4 in. (162.56 cm); 21:19 BP 139 / 99; Pulse 85; Resp 18; Pulse Ox 100% on R/A; ea 22:40 BP 148 / 105; Pulse 80; Resp 20; Pulse Ox 100% ; ea 23:30 BP 145 / 78; Pulse 86; Resp 18; Pulse Ox 99% ; ea 20:08 Body Mass Index 34.50 (91.17 kg, 162.56 cm) la1 ED Course: 20:05 Patient arrived in ED. es 20:07 Triage completed. la1 20:09 Arm band placed on right wrist. la1 20:16 Katie Perez FNP-C is PHCP. kb 20:16 Kevan Vasques MD is Attending Physician. kb 20:18 Janice Hodge, JIGNESH is Primary Nurse. ea 20:30 Patient has correct armband on for positive identification. Bed in low position. Call ea light in reach. Side rails up X2. 20:51 No provider procedures requiring assistance completed. Accessed peripheral vein via la1 ultrasound, utilizing dynamic ultrasound technique using 18G Sureflo IV catheter Clean \T\ dry. Good blood return. 21:[address] nj 21:49 CT completed. Patient tolerated procedure well. Patient moved back from CT. vm2 21:52 CT Abd/Pelvis - W/Contrast In Process Unspecified. EDMS 23:35 IV discontinued, intact, bleeding controlled, No redness/swelling at site. Pressure ea dressing applied. Administered Medications: 20:30 Drug: NS 0.9% 1000 ml Route: IV; Rate: 1000 ml; Site: right antecubital; ea 23:44 Follow up: Response: No adverse reaction; IV Status: Completed infusion; IV Intake: ea 1000ml 20:45 Drug: Zofran 4 mg Route: IVP; Site: right antecubital; ea 21:41 Follow up: Response: No adverse reaction ea 20:45 Drug: morphine 4 mg Route: IVP; Site: right antecubital; ea 21:40 Follow up: Response: No adverse reaction; Pain is unchanged, physician notified ea 21:41 Drug: morphine 4 mg Route: IVP; Site: right antecubital; ea 22:00 Follow up: Response: No adverse reaction; Pain is decreased ea 23:30 Drug: TORadol 30 mg Route: IVP; Site: right antecubital; ea 23:35 Follow up: Response: No adverse reaction; Medication administered at discharge. ea 23:30 Drug: [place] (7.5 mg-325 mg) 1 tabs Route: PO; ea 23:35 Follow up: Response: No adverse reaction; Medication administered at discharge. ea Intake: 23:44 IV: 1000ml; Total: 1000ml. ea Outcome: 23:13 Discharge ordered by . kb 23:40 Discharged to home ambulatory, with family. ea 23:40 Condition: improved 23:40 Discharge instructions given to patient, Instructed on discharge instructions, follow up and referral plans. Demonstrated understanding of instructions, follow-up care. 23:44 Patient left the ED. ea Signatures: Dispatcher [employer] Katie Burgos, RIGOBERTO-C STORE TEAM MEMBER-Kacie Vegas Lee RN RN Blue Rosales Victoria Janice Smith RN RN ea
--- NOTE | 2018-11-02 23:14 | EDPHYS ---
Physician Documentation [facility] Name: Chelsea Cristobal Age: 62 yrs Sex: Female : 1955 Arrival Date: 11/02/2018 Time: 20:05 Bed 30 Private MD: ED Physician Kevan Vasques HPI: 11/02 21:20 This 62 yrs old Black Female presents to ER via Wheelchair with complaints of Abdominal kb Pain. 21:20 The patient presents with abdominal pain in the upper abdomen. Onset: The kb symptoms/episode began/occurred this morning. The symptoms do not radiate. Associated signs and symptoms: none. The symptoms are described as constant, sharp. Modifying factors: The symptoms are alleviated by nothing, the symptoms are aggravated by pressure. Severity of pain: At its worst the pain was moderate severe in the emergency department the pain is unchanged. The patient has not experienced similar symptoms in the past. The patient has not recently seen a physician. Pt reports abd pain that started this morning. Denies any other symptoms. Historical: - Allergies: 20:08 No Known Allergies; la1 - Home Meds: 20:08 None [Active]; la1 - PMHx: 20:08 None; la1 - PSHx: 20:08 Cholecystectomy; Appendectomy; Hysterectomy; la1 - Immunization history:: Adult Immunizations up to date. - Social history:: Smoking status: Patient/guardian denies using tobacco. - Ebola Screening: : No symptoms or risks identified at this time. ROS: 21:20 Constitutional: Negative for fever, chills, and weight loss, Cardiovascular: Negative kb for chest pain, palpitations, and edema, Respiratory: Negative for shortness of breath, cough, wheezing, and pleuritic chest pain, Back: Negative for injury and pain, : Negative for injury, bleeding, discharge, and swelling, MS/Extremity: Negative for injury and deformity, Skin: Negative for injury, rash, and discoloration, Neuro: Negative for headache, weakness, numbness, tingling, and seizure. 21:20 Abdomen/GI: Positive for abdominal pain, Negative for nausea, vomiting, and diarrhea. Exam: 21:20 Constitutional: This is a well developed, well nourished patient who is awake, alert, kb and in no acute distress. Head/Face: Normocephalic, atraumatic. ENT: Nares patent. No nasal discharge, no septal abnormalities noted. Tympanic membranes are normal and external auditory canals are clear. Oropharynx with no redness, swelling, or masses, exudates, or evidence of obstruction, uvula midline. Mucous membranes moist. Neck: Trachea midline, no thyromegaly or masses palpated, and no cervical lymphadenopathy. Supple, full range of motion without nuchal rigidity, or vertebral point tenderness. No Meningismus. Chest/axilla: Normal chest wall appearance and motion. Nontender with no deformity. No lesions are appreciated. Cardiovascular: Regular rate and rhythm with a normal S1 and S2. No gallops, murmurs, or rubs. Normal PMI, no JVD. No pulse deficits. Respiratory: Lungs have equal breath sounds bilaterally, clear to auscultation and percussion. No rales, rhonchi or wheezes noted. No increased work of breathing, no retractions or nasal flaring. Skin: Warm, dry with normal turgor. Normal color with no rashes, no lesions, and no evidence of cellulitis. MS/ Extremity: Pulses equal, no cyanosis. Neurovascular intact. Full, normal range of motion. Neuro: Awake and alert, GCS 15, oriented to person, place, time, and situation. Cranial nerves II-XII grossly intact. Motor strength 5/5 in all extremities. Sensory grossly intact. Cerebellar exam normal. Normal gait. 21:20 Abdomen/GI: Inspection: abdomen appears normal, Bowel sounds: normal, in all quadrants, Palpation: soft, in all quadrants, nontender, in the right upper quadrant and left upper quadrant, moderate abdominal tenderness, in the right lower quadrant and left lower quadrant. Vital Signs: 20:08 BP 122 / 99; Pulse 109; Resp 18; Temp 98.9; Pulse Ox 98% on R/A; Weight 91.17 kg; la1 Height 5 ft. 4 in. (162.56 cm); 21:19 BP 139 / 99; Pulse 85; Resp 18; Pulse Ox 100% on R/A; ea 22:40 BP 148 / 105; Pulse 80; Resp 20; Pulse Ox 100% ; ea 23:30 BP 145 / 78; Pulse 86; Resp 18; Pulse Ox 99% ; ea 20:08 Body Mass Index 34.50 (91.17 kg, 162.56 cm) la1 MDM: 20:16 Patient medically screened. kb 21:27 Data reviewed: vital signs, nurses notes. Data interpreted: Pulse oximetry: on room air kb is 100 %. Interpretation: normal. 23:12 Counseling: I had a detailed discussion with the patient and/or guardian regarding: the kb historical points, exam findings, and any diagnostic results supporting the discharge/admit diagnosis, lab results, radiology results, the need for outpatient follow up, a family practitioner, to return to the emergency department if symptoms worsen or persist or if there are any questions or concerns that arise at home. 11/02 20:16 Order name: Basic Metabolic Panel; Complete Time: 21:27 kb 11/02 20:16 Order name: CBC with Diff; Complete Time: 21:06 kb 11/02 20:16 Order name: Hepatic Function; Complete Time: 21:27 kb 11/02 20:16 Order name: Lipase; Complete Time: 21:27 kb 11/02 21:13 Order name: Urine Dipstick--Ancillary (enter results); Complete Time: 21:32 ag4 11/02 21:27 Order name: Urine Microscopic Only; Complete Time: 23:07 kb 11/02 21:28 Order name: CT Abd/Pelvis - W/Contrast; Complete Time: 22:06 kb 11/02 23:07 Order name: Urine Culture EDMS 11/02 20:16 Order name: IV Saline Lock; Complete Time: 20:52 kb 11/02 20:16 Order name: Labs collected and sent; Complete Time: 21:01 kb 11/02 20:21 Order name: Urine Dipstick-Ancillary (obtain specimen); Complete Time: 21:11 kb Administered Medications: 20:30 Drug: NS 0.9% 1000 ml Route: IV; Rate: 1000 ml; Site: right antecubital; ea 23:44 Follow up: Response: No adverse reaction; IV Status: Completed infusion; IV Intake: ea 1000ml 20:45 Drug: Zofran 4 mg Route: IVP; Site: right antecubital; ea 21:41 Follow up: Response: No adverse reaction ea 20:45 Drug: morphine 4 mg Route: IVP; Site: right antecubital; ea 21:40 Follow up: Response: No adverse reaction; Pain is unchanged, physician notified ea 21:41 Drug: morphine 4 mg Route: IVP; Site: right antecubital; ea 22:00 Follow up: Response: No adverse reaction; Pain is decreased ea 23:30 Drug: TORadol 30 mg Route: IVP; Site: right antecubital; ea 23:35 Follow up: Response: No adverse reaction; Medication administered at discharge. ea 23:30 Drug: [place] (7.5 mg-325 mg) 1 tabs Route: PO; ea 23:35 Follow up: Response: No adverse reaction; Medication administered at discharge. ea Disposition: 11/03 07:33 Co-signature as Attending Physician, Kevan Vasques MD I agree with the assessment and sung plan of care. Disposition: 11/02/18 23:13 Discharged to Home. Impression: Generalized abdominal pain. - Condition is Stable. - Discharge Instructions: Abdominal Pain, Adult, [id number]. - Medication Reconciliation Form, Thank You Letter, Antibiotic Education, Prescription Opioid Use form. - Follow up: Emergency Department; When: As needed; Reason: Worsening of condition. Follow up: Private Physician; When: 2 - 3 days; Reason: Recheck today's complaints, Continuance of care, Re-evaluation by your physician. Signatures: Dispatcher [employer] [facility] Katie Perez, CMM TECHNICIAN-C CMM TECHNICIAN-Kevan Srinivasan MD MD cha Attema, Lee RN RN Janice Medley RN RN ea Corrections: (The following items were deleted from the chart) 11/02 23:44 23:13 11/02/2018 23:13 Discharged to Home. Impression: Generalized abdominal pain. ea Condition is Stable. Forms are Medication Reconciliation Form, Thank You Letter, Antibiotic Education, Prescription Opioid Use. Follow up: Emergency Department; When: As needed; Reason: Worsening of condition. Follow up: Private Physician; When: 2 - 3 days; Reason: Recheck today's complaints, Continuance of care, Re-evaluation by your physician. kb
[2018-11-02] MEDS ORDERED: KETOROLAC 30 MG/ML INJ ONE (23:34)
[2018-11-02] MEDS ORDERED: HYDROCODONE/APAP 7.5/325 MG TAB ONE (23:34)
== END 2018-11-02 23:44 | disposition home or self-care (01) ==
LOC: ER 20:02
DX: R10.84 Generalized abdominal pain (principal)
CPT/HCPCS: 36415; 74177; 80048; 80076; 81003; 81015; 83690; 85025; 87086; 87088; 96361; 96374; 96375; 99284; J2405; J7030; Q9967

== ENCOUNTER 2019-03-27 21:09 | Emergency (ER) | payer MEDICAID ==
[2019-03-27] MEDS ORDERED: DIPHENHYDRAMINE 50 MG/ML VIAL ONE (23:28)
[2019-03-27] MEDS ORDERED: METOCLOPRAMIDE 10 MG/2mL INJ ONE (23:28)
[2019-03-27] MEDS ORDERED: KETOROLAC 30 MG/ML INJ ONE (23:28)
[2019-03-27] MEDS ORDERED: NA CHLORIDE 0.9% 1,000 ML ONE (23:28)
--- NOTE | 2019-03-28 00:01 | EDPHYS ---
Physician Documentation [facility] Name: Chelsea Cristobal Age: 63 yrs Sex: Female : 1955 Arrival Date: 03/27/2019 Time: 21:12 Bed 13 Private MD: ED Physician Idris Zelaya HPI: 03/27 22:01 This 63 yrs old Black Female presents to ER via Ambulatory with complaints of Headache. pm1 22:01 The patient complains of pain to the top of head, right church and left church. The pm1 patient describes the headache as aching, constant. Onset: The symptoms/episode began/occurred today, at 13:00. Associated signs and symptoms: Pertinent positives: Photophobia Pertinent negatives: altered mental status, dizziness, fever, nausea, neck stiffness, paresthesias, rash, vision changes, vision loss, vomiting, weakness, vertigo. Severity of symptoms: in the emergency department the pain is unchanged, despite home interventions. Headache History: The patient has had previous headaches and this one is similar to previous episodes. The symptoms are alleviated by nothing. the symptoms are aggravated by lights, noise. The patient has experienced similar episodes in the past, a few times. The patient has not recently seen a physician. Historical: - Allergies: 21:20 No Known Allergies; fc - Home Meds: 21:20 None [Active]; fc - PMHx: 21:20 Headaches; fc - PSHx: 21:20 Hysterectomy; fc - Immunization history:: Last tetanus immunization: up to date. - Social history:: Smoking status: Patient/guardian denies using tobacco, Patient/guardian denies using alcohol, street drugs. - Ebola Screening: : Patient negative for fever greater than or equal to 101.5 degrees Fahrenheit, and additional compatible Ebola Virus Disease symptoms Patient denies exposure to infectious person Patient denies travel to an Ebola-affected area in the 21 days before illness onset. ROS: 22:01 Constitutional: Negative for fever, chills, and weight loss, Eyes: Negative for injury, pm1 pain, redness, and discharge, ENT: Negative for injury, pain, and discharge, Neck: Negative for injury, pain, and swelling, Cardiovascular: Negative for chest pain, palpitations, and edema, Respiratory: Negative for shortness of breath, cough, wheezing, and pleuritic chest pain, Abdomen/GI: Negative for abdominal pain, nausea, vomiting, diarrhea, and constipation, Back: Negative for injury and pain, : Negative for injury, bleeding, discharge, and swelling, MS/Extremity: Negative for injury and deformity, Skin: Negative for injury, rash, and discoloration. 22:01 Neuro: Positive for headache, Negative for dizziness, numbness, tingling, weakness. Exam: 22:01 Constitutional: This is a well developed, well nourished patient who is awake, alert, pm1 and in no acute distress. 22:01 Eyes: Pupils equal round and reactive to light, extra-ocular motions intact. Lids and lashes normal. Conjunctiva and sclera are non-icteric and not injected. Cornea within normal limits. Periorbital areas with no swelling, redness, or edema. ENT: Nares patent. No nasal discharge, no septal abnormalities noted. Tympanic membranes are normal and external auditory canals are clear. Oropharynx with no redness, swelling, or masses, exudates, or evidence of obstruction, uvula midline. Mucous membranes moist. Neck: Trachea midline, no thyromegaly or masses palpated, and no cervical lymphadenopathy. Supple, full range of motion without nuchal rigidity, or vertebral point tenderness. No Meningismus. Chest/axilla: Normal chest wall appearance and motion. Nontender with no deformity. No lesions are appreciated. Cardiovascular: Regular rate and rhythm with a normal S1 and S2. No gallops, murmurs, or rubs. Normal PMI, no JVD. No pulse deficits. Respiratory: Lungs have equal breath sounds bilaterally, clear to auscultation and percussion. No rales, rhonchi or wheezes noted. No increased work of breathing, no retractions or nasal flaring. Abdomen/GI: Soft, non-tender, with normal bowel sounds. No distension or tympany. No guarding or rebound. No evidence of tenderness throughout. Back: No spinal tenderness. No costovertebral tenderness. Full range of motion. Skin: Warm, dry with normal turgor. Normal color with no rashes, no lesions, and no evidence of cellulitis. MS/ Extremity: Pulses equal, no cyanosis. Neurovascular intact. Full, normal range of motion. 22:01 Head/face: Noted is no obvious of injury or deformity except tenderness, of the top of head, right church and left church. 22:01 Neuro: Orientation: is normal, Cranial nerves: CN II- XII are normal as tested, Cerebellar function: normal finger to nose testing, Motor: is normal, moves all fours, Sensation: is normal, no obvious gross deficits, Gait: is steady, at a normal pace, without difficulty. Vital Signs: 21:22 BP 149 / 91; Pulse 77; Resp 18; Temp 98.8(O); Pulse Ox 100% on R/A; Weight 84.82 kg fc (R); Height 5 ft. 4 in. (162.56 cm) (R); Pain 9/10; 22:34 BP 137 / 85; Pulse 73; Resp 18; Pulse Ox 100% on R/A; jb4 03/28 00:17 BP 134 / 86; Pulse 86; Resp 18; Pulse Ox 98% on R/A; Pain 5/10; jb4 03/27 21:22 Body Mass Index 32.10 (84.82 kg, 162.56 cm) fc MDM: 03/27 21:33 Patient medically screened. pm1 22:01 Data reviewed: vital signs. Data interpreted: Pulse oximetry: on room air is 100 %. pm1 Interpretation: normal. 23:58 Counseling: I had a detailed discussion with the patient and/or guardian regarding: the pm1 historical points, exam findings, and any diagnostic results supporting the discharge/admit diagnosis, radiology results, the need for outpatient follow up, to return to the emergency department if symptoms worsen or persist or if there are any questions or concerns that arise at home. 03/27 21:34 Order name: CT Head Brain wo Cont pm1 Administered Medications: 23:16 Drug: Reglan 10 mg Route: IVP; Site: right antecubital; jb4 23:48 Follow up: Response: No adverse reaction; Pain is decreased jb4 23:17 Drug: NS 0.9% 1000 ml Route: IV; Rate: 1000 ml; Site: right antecubital; jb4 03/28 00:18 Follow up: Response: No adverse reaction; IV Status: Completed infusion; IV Intake: jb4 900ml 03/27 23:18 Drug: TORadol 30 mg Route: IVP; Site: right antecubital; jb4 23:48 Follow up: Response: No adverse reaction; Pain is decreased jb4 23:20 Drug: Benadryl 25 mg Route: IVP; Site: right antecubital; jb4 23:48 Follow up: Response: No adverse reaction jb4 Disposition: 03/27/19 23:59 Discharged to Home. Impression: Headache. - Condition is Stable. - Discharge Instructions: General Headache Without Cause. - Prescriptions for Fiorinal 50- 325-40 mg Oral Capsule - take 1 capsule by ORAL route every 4 hours As needed - not to exceed 6 capsules per day; 20 capsule. - Medication Reconciliation Form, Thank You Letter, Antibiotic Education, Prescription Opioid Use form. - Follow up: Emergency Department; When: As needed; Reason: Worsening of condition. Follow up: Private Physician; When: 2 - 3 days; Reason: Recheck today's complaints, Continuance of care, Re-evaluation by your physician. - Problem is new. - Symptoms have improved. Addendum: 03/29/2019 15:31 Co-signature as Attending Physician, Idris Zelaya MD. g s Signatures: Dispatcher [employer] EDMS Anjelica Polo, RN RN fc Iraj Salter, NADYA VOICE OVER ANNOUNCER pm1 Ricardo Castañeda RN RN jb4 Idris Zelaya MD MD Corrections: (The following items were deleted from the chart) 03/28 00:19 03/27 23:59 03/27/2019 23:59 Discharged to Home. Impression: Headache. Condition is jb4 Stable. Forms are Medication Reconciliation Form, Thank You Letter, Antibiotic Education, Prescription Opioid Use. Follow up: Emergency Department; When: As needed; Reason: Worsening of condition. Follow up: Private Physician; When: 2 - 3 days; Reason: Recheck today's complaints, Continuance of care, Re-evaluation by your physician. Problem is new. Symptoms have improved. pm1
--- NOTE | 2019-03-28 00:01 | ER ---
Nurse's Notes [facility] Name: Chelsea Cristobal Age: 63 yrs Sex: Female : 1955 Arrival Date: 03/27/2019 Time: 21:12 Bed 13 Private MD: Diagnosis: Headache Presentation: 03/27 21:18 Presenting complaint: Patient states: that she is having head pain to both sides of her head, throbbing pain. Started today at 1300. Denies any nausea or vomiting. Pt is having photophobia. Transition of care: patient was not received from another setting of care. Onset of symptoms was March 27, 2019 at 13:00. Risk Assessment: Do you want to hurt yourself or someone else? Patient reports no desire to harm self or others. Initial Sepsis Screen: Does the patient meet any 2 criteria? No. Patient's initial sepsis screen is negative. Does the patient have a suspected source of infection? No. Patient's initial sepsis screen is negative. Care prior to arrival: Medication(s) given: Tylenol, 1000 mg, last at 1430. 21:18 Method Of Arrival: Ambulatory 21:18 Acuity: INDIO 3 Triage Assessment: 21:20 Headache History: The patient has had previous headaches and this one is similar to previous episodes. General: Appears uncomfortable, obese, Behavior is calm, cooperative, appropriate for age. Pain: Complains of pain in right and left side of head Pain currently is 9 out of 10 on a pain scale. Quality of pain is described as throbbing, Pain began today at 1300 Also complains of photophobia. EENT: No deficits noted. Neuro: Level of Consciousness is awake, alert, obeys commands, Oriented to person, place, time, situation, Appropriate for age For[place] Hand are equal bilaterally Moves all extremities. Full function Gait is shuffling, Speech is normal, Facial symmetry appears normal, Reports headache in right in left photophobia. Cardiovascular: No deficits noted. Respiratory: No deficits noted. GI: Patient currently denies nausea, vomiting. : No deficits noted. Derm: Skin is. Historical: - Allergies: 21:20 No Known Allergies; fc - Home Meds: 21:20 None [Active]; fc - PMHx: 21:20 Headaches; fc - PSHx: 21:20 Hysterectomy; fc - Immunization history:: Last tetanus immunization: up to date. - Social history:: Smoking status: Patient/guardian denies using tobacco, Patient/guardian denies using alcohol, street drugs. - Ebola Screening: : Patient negative for fever greater than or equal to 101.5 degrees Fahrenheit, and additional compatible Ebola Virus Disease symptoms Patient denies exposure to infectious person Patient denies travel to an Ebola-affected area in the 21 days before illness onset. Screenin:30 Abuse screen: Denies threats or abuse. Nutritional screening: No deficits noted. jb4 Tuberculosis screening: No symptoms or risk factors identified. Fall Risk None identified. Assessment: 21:30 General: Appears in no apparent distress. uncomfortable, Behavior is calm, cooperative, jb4 appropriate for age. Pain: Complains of pain in headache Pain does not radiate. Pain currently is 10 out of 10 on a pain scale. Quality of pain is described as pressure. Neuro: Level of Consciousness is awake, alert, obeys commands, Oriented to person, place, time, situation. Cardiovascular: Respiratory: Airway is patent Respiratory effort is even, unlabored, Respiratory pattern is regular, symmetrical. GI: No signs and/or symptoms were reported involving the gastrointestinal system. : No signs and/or symptoms were reported regarding the genitourinary system. EENT: No signs and/or symptoms were reported regarding the EENT system. Derm: Skin is intact, Skin is dry, Skin is normal, Skin temperature is warm. Musculoskeletal: Circulation, motion, and sensation intact. 22:34 Reassessment: Patient appears in no apparent distress at this time. Patient and/or jb4 family updated on plan of care and expected duration. Pain level reassessed. Patient is alert, oriented x 3, equal unlabored respirations, skin warm/dry/pink. 03/28 00:17 Reassessment: Patient appears in no apparent distress at this time. Patient and/or jb4 family updated on plan of care and expected duration. Pain level reassessed. Patient is alert, oriented x 3, equal unlabored respirations, skin warm/dry/pink. Patient states feeling better. Vital Signs: 03/27 21:22 BP 149 / 91; Pulse 77; Resp 18; Temp 98.8(O); Pulse Ox 100% on R/A; Weight 84.82 kg fc (R); Height 5 ft. 4 in. (162.56 cm) (R); Pain 9/10; 22:34 BP 137 / 85; Pulse 73; Resp 18; Pulse Ox 100% on R/A; jb4 03/28 00:17 BP 134 / 86; Pulse 86; Resp 18; Pulse Ox 98% on R/A; Pain 5/10; jb4 06 21:22 Body Mass Index 32.10 (84.82 kg, 162.56 cm) ED Course: 03/27 21:12 Patient arrived in ED. as 21:20 Triage completed. fc 21:22 Arm band placed on Patient placed in an exam room, on a stretcher. fc 21:25 Iraj Salter NP is PHCP. pm1 21:26 Idris Zelaya MD is Attending Physician. pm1 21:30 Patient has correct armband on for positive identification. Bed in low position. Call jb4 light in reach. Side rails up X 1. Pulse ox on. NIBP on. 22:02 CT Head Brain wo Cont In Process Unspecified. EDMS 22:15 Ricardo Castañeda, RN is Primary Nurse. jb4 23:00 Inserted saline lock: 22 gauge in right antecubital area, using aseptic technique. jb4 03/28 00:17 No provider procedures requiring assistance completed. IV discontinued, intact, jb4 bleeding controlled, No redness/swelling at site. Administered Medications: 03/27 23:16 Drug: Reglan 10 mg Route: IVP; Site: right antecubital; jb4 23:48 Follow up: Response: No adverse reaction; Pain is decreased jb4 23:17 Drug: NS 0.9% 1000 ml Route: IV; Rate: 1000 ml; Site: right antecubital; jb4 03/28 00:18 Follow up: Response: No adverse reaction; IV Status: Completed infusion; IV Intake: jb4 900ml 03/27 23:18 Drug: TORadol 30 mg Route: IVP; Site: right antecubital; jb4 23:48 Follow up: Response: No adverse reaction; Pain is decreased jb4 23:20 Drug: Benadryl 25 mg Route: IVP; Site: right antecubital; jb4 23:48 Follow up: Response: No adverse reaction jb4 Intake: 03/28 00:18 IV: 900ml; Total: 900ml. jb4 Outcome: 03/27 23:59 Discharge ordered by . pm1 03/28 00:17 Discharged to home ambulatory, with family. jb4 Condition: stable Discharge instructions given to patient, family, Instructed on discharge instructions, follow up and referral plans. medication usage, Demonstrated understanding of instructions, follow-up care, medications, Prescriptions given X 1. 00:19 Patient left the ED. jb4 Signatures: Dispatcher [employer] EDMS Anjelica Polo, RN RN Cely Merino Patrick, HIM SPECIALIST HIM SPECIALIST pm1 Ricardo Castañeda, JIGNESH RN jb4
--- NOTE | 2019-03-29 11:25 | RAD REPORT ---
EXAM DESCRIPTION: CT - Head Brain Wo Cont - 03/27/2019 10:15 pm CLINICAL HISTORY: 63 years Female HEADACHE TECHNIQUE: Contiguous axial CT images obtained through the brain without IV contrast. This CT exam was performed according to our departmental dose-optimization program, which includes on e or more of the following dose reduction techniques: automated exposure control, adjustment of the m A and/or kV according to patient size, and/or use of iterative reconstruction technique. COMPARISON: No prior exams provided for comparison. FINDINGS: There is no intracranial hemorrhage, extraaxial collection, or evidence of acute transcort ical infarction. Scattered foci of low attenuation within the periventricular and subcortical white matter are most co mpatible with chronic microvascular disease. The ventricles and sulci are symmetric without midline s hift or mass effect. Vascular calcifications are noted. No lesion of the skull base or calvarium is identified. The parana genevieve sinuses and mastoid air cells are clear. IMPRESSION: Mild chronic microvascular changes without acute intracranial finding. Electronically signed by: Shante Man MD 03/27/2019 10:10 PM CDT Due to temporary technical issues with the PACS/Fluency reporting system, reports are being signed by the in house radiologist as a courtesy to ensure prompt reporting. The interpreting radiologist is f ully responsible for the content of the report.
== END 2019-03-28 00:19 | disposition home or self-care (01) ==
LOC: ER 21:09
DX: R51 Headache (principal)
CPT/HCPCS: 70450; 96361; 96374; 96375; 99284; J2765; J7030

== ENCOUNTER 2019-04-27 02:10 | Emergency (ER) | payer MEDICAID ==
[2019-04-27] MEDS ORDERED: FAMOTIDINE 20 MG/2 ML VIAL IV ONE (02:55)
[2019-04-27] MEDS ORDERED: MORPHINE 4 MG/ML SYR ONE ×2 (02:55→05:48)
[2019-04-27] MEDS ORDERED: ONDANSETRON 4 MG/2 ML VIAL ONE ×2 (02:55→05:48)
[2019-04-27] MEDS ORDERED: NA CHLORIDE 0.9% 1,000 ML ONE (02:55)
[2019-04-27] MEDS ORDERED: CIPROFLOXACIN 400mg IV 400 MG/200 ML BAG IV ONE (02:56)
[2019-04-27] MEDS ORDERED: METRONIDAZOLE 500mg IVPB 500 MG/100 ML BAG IV ONE (02:56)
[2019-04-27 04:43] LABS: Absolute Lymphocytes (CBC) 2.2 K/uL (0.7-4.9); Eosinophils % 1.4 % (0-4.4); Hematocrit 35.4 % (36.0-45.0); RBC Red Blood Cell Count 3.88 M/uL (3.86-4.86)
[2019-04-27 04:55] LABS: ALT/SGPT 15 U/L (12-78); AST/SGOT 16 U/L (15-37); Albumin 3.2 g/dL (3.4-5.0); Alkaline Phosphatase 89 U/L (45-117); BUN Blood Urea Nitrogen 8 mg/dL (7-18); Bicarbonate 28 mmol/L (21-32); Bilirubin Direct 0.1 mg/dL (0-0.2); Bilirubin Total 0.3 mg/dL (0.2-1.0); Glucose Level 70 mg/dL (74-106); Lipase 80 U/L (73-393); Magnesium 2.2 mg/dL (1.8-2.4); NT PRO-BNP 10 pg/mL (<125); Potassium 3.9 mmol/L (3.5-5.1); Protein, Total 7.2 g/dL (6.4-8.2); Sodium Level 144 mmol/L (136-145); Troponin (Emerg Dept Use Only) < 0.02 ng/mL (0.0-0.045)
[2019-04-27 05:07] LABS: Protime INR 0.99
--- NOTE | 2019-04-27 05:15 | ER ---
Nurse's Notes [facility] Name: Chelsea Cristobal Age: 63 yrs Sex: Female : 1955 Arrival Date: 04/27/2019 Time: 02:13 Bed 17 Private MD: Diagnosis: Abdominal tenderness;Urinary tract infection, site not specified;Nausea and vomiting Presentation: 04/27 02:20 Presenting complaint: Patient states: "I have had abdominal pain for 2 days now. I am jd3 having nausea and vomiting and no diarrhea.". Transition of care: patient was not received from another setting of care. Onset of symptoms was April 27, 2019. Risk Assessment: Do you want to hurt yourself or someone else? Patient reports no desire to harm self or others. Initial Sepsis Screen: Does the patient meet any 2 criteria? No. Patient's initial sepsis screen is negative. Does the patient have a suspected source of infection? No. Patient's initial sepsis screen is negative. Care prior to arrival: None. 02:20 Method Of Arrival: Ambulatory jd3 02:20 Acuity: INDIO 3 jd3 Historical: - Allergies: 02:22 No Known Allergies; jd3 - Home Meds: 02:22 None [Active]; jd3 - PMHx: 02:22 None; jd3 - PSHx: 02:22 Hysterectomy; Appendectomy; jd3 - Immunization history:: Adult Immunizations up to date. - Social history:: Smoking status: Patient/guardian denies using tobacco. - Ebola Screening: : Patient negative for fever greater than or equal to 101.5 degrees Fahrenheit, and additional compatible Ebola Virus Disease symptoms. - Family history:: not pertinent. Screenin:34 Abuse screen: Denies threats or abuse. Denies injuries from another. Nutritional cc3 screening: No deficits noted. Tuberculosis screening: No symptoms or risk factors identified. Fall Risk Ambulatory Aid- None/Bed Rest/Nurse Assist (0 pts). Gait- Normal/Bed Rest/Wheelchair (0 pts) Mental Status- Oriented to own ability (0 pts). Assessment: 02:34 General: Appears in no apparent distress. uncomfortable, Behavior is calm, cooperative, cc3 appropriate for age. Pain: Complains of pain in bilateral upper and lower abdomen Pain does not radiate. Neuro: Level of Consciousness is awake, alert, obeys commands, Oriented to person, place, time, situation, Appropriate for age. Cardiovascular: Capillary refill < 3 seconds Patient's skin is warm and dry. Respiratory: Airway is patent Respiratory effort is even, unlabored, Respiratory pattern is regular, symmetrical. GI: Bowel sounds present X 4 quads. Abd is soft and non tender X 4 quads. : No signs and/or symptoms were reported regarding the genitourinary system. EENT: No signs and/or symptoms were reported regarding the EENT system. Derm: Skin is intact, is healthy with good turgor, Skin is pink, warm \\T\\ dry. normal. Musculoskeletal: Circulation, motion, and sensation intact. Range of motion: intact in all extremities. 02:50 Reassessment: Patient appears in no apparent distress at this time. Patient and/or cc3 family updated on plan of care and expected duration. Pain level reassessed. Patient is alert, oriented x 3, equal unlabored respirations, skin warm/dry/pink. Patient finished her oral contrast, front end technician Marietta informed. 03:18 Reassessment: Patient appears in no apparent distress at this time. Patient and/or cc3 family updated on plan of care and expected duration. Pain level reassessed. Patient is alert, oriented x 3, equal unlabored respirations, skin warm/dry/pink. Called inside lab at 1608 and informed them to kindly do phlebotomy for the patient and staff Alma Rosa said she'll send her staff, charge nurse Anjelica informed. 03:50 Reassessment: Still no labor and delivery registered nurse came so called them again at extension 1608 and cc3 Alma Rosa said she'll page again her staff to come. 04:15 Reassessment: Patient appears in no apparent distress at this time. Patient and/or cc3 family updated on plan of care and expected duration. Pain level reassessed. Patient is alert, oriented x 3, equal unlabored respirations, skin warm/dry/pink. JIGNESH Osborne got blood extracted for the patient but just for CBC and CMP, still for PT blood sample because collected blood was not enough. Patient taken by front end technician to their department by wheelchair. 04:20 Reassessment: central office technician came but the patient is not in the room for she was just cc3 taken to CT scan department, labor and delivery registered nurse said to page her once the patient's back. 04:33 Reassessment: Patient came back from CT scan department, awaiting result. cc3 04:40 Reassessment: central office technician came for phlebotomy. cc3 05:11 Reassessment: Patient appears in no apparent distress at this time. Patient and/or cc3 family updated on plan of care and expected duration. Pain level reassessed. Patient is alert, oriented x 3, equal unlabored respirations, skin warm/dry/pink. 06:00 Reassessment: Patient appears in no apparent distress at this time. Patient and/or cc3 family updated on plan of care and expected duration. Pain level reassessed. Patient is alert, oriented x 3, equal unlabored respirations, skin warm/dry/pink. Dr. Vasques discharged the patient home with prescription given. IV cannula removed and patient left ER vitally stable and ambulatory with her family. Patient denies pain at this time. Patient states feeling better. Patient states symptoms have improved. Vital Signs: 02:22 BP 120 / 87; Pulse 88; Resp 16 S; Temp 98.0(TE); Pulse Ox 99% on R/A; Weight 92.08 kg jd3 (R); Height 5 ft. 4 in. (162.56 cm) (R); Pain 9/10; 03:32 BP 134 / 79; Pulse 73; Resp 17 S; Pulse Ox 100% on R/A; cc3 04:45 BP 121 / 78; Pulse 76; Resp 17 S; Pulse Ox 96% on R/A; cc3 05:45 BP 117 / 84; Pulse 74; Resp 16 S; Pulse Ox 100% on R/A; cc3 02:22 Body Mass Index 34.84 (92.08 kg, 162.56 cm) jd3 ED Course: 02:13 Patient arrived in ED. am2 02:22 Triage completed. jd3 02:22 Kevan Vasques MD is Attending Physician. sung 02:23 Arm band placed on. jd3 02:34 Do Payne is Primary Nurse. cc3 02:34 Patient has correct armband on for positive identification. Placed in gown. Bed in low cc3 position. Call light in reach. Side rails up X 1. monitoring and evaluation advisor on. Pulse ox on. NIBP on. 02:57 X-ray completed. Portable x-ray completed in exam room. Patient tolerated procedure kw well. 02:58 XRAY Chest (1 view) In Process Unspecified. EDMS 03:15 Inserted saline lock: 20 gauge in left antecubital area, using aseptic technique. cc3 04:47 CT Abd/Pelvis - PO and IV Contrast In Process Unspecified. EDMS 05:13 Ryan Howe MD is Referral Physician. [facility] 06:00 No provider procedures requiring assistance completed. IV discontinued, intact, cc3 bleeding controlled, No redness/swelling at site. Pressure dressing applied. Administered Medications: 03:15 Drug: NS 0.9% 1000 ml Route: IV; Rate: 1 bolus; Site: left antecubital; cc3 04:15 Follow up: Response: No adverse reaction; IV Status: Completed infusion; IV Intake: cc3 1000ml 03:15 Drug: morphine 4 mg Route: IVP; Site: left antecubital; cc3 03:40 Follow up: Response: No adverse reaction; Pain is decreased cc3 03:18 Drug: Zofran 4 mg Route: IVP; Site: left antecubital; cc3 04:00 Follow up: Response: No adverse reaction; Nausea is decreased cc3 03:23 Drug: Pepcid 20 mg Route: IVP; Site: left antecubital; cc3 03:40 Follow up: Response: No adverse reaction; Pain is decreased cc3 03:28 Drug: Flagyl 500 mg Volume: 100 ml; Route: IVPB; Rate: 200 ml/hr; Infused Over: 30 cc3 mins; Site: left antecubital; 04:00 Follow up: Response: No adverse reaction; IV Status: Completed infusion; IV Intake: cc3 100ml 04:00 Drug: Cipro 400 mg Volume: 200 ml; Route: IVPB; Infused Over: 60 mins; Site: left cc3 antecubital; 05:10 Follow up: Response: No adverse reaction; IV Status: Completed infusion; IV Intake: cc3 200ml 05:30 Drug: morphine 4 mg Route: IVP; Site: left antecubital; cc3 06:00 Follow up: Response: No adverse reaction; Pain is decreased cc3 05:38 Drug: Zofran 4 mg Route: IVP; Site: left antecubital; cc3 06:00 Follow up: Response: No adverse reaction; Nausea is decreased cc3 Intake: 04:00 IV: 100ml; Total: 100ml. cc3 04:15 IV: 1000ml; Total: 1100ml. cc3 05:10 IV: 200ml; Total: 1300ml. cc3 Outcome: 05:14 Discharge ordered by . sung 06:00 Patient left the ED. cc3 06:00 Discharged to home ambulatory, with family. cc3 06:00 Condition: stable 06:00 Discharge instructions given to patient, family, Instructed on discharge instructions, follow up and referral plans. medication usage, Demonstrated understanding of instructions, follow-up care, medications, Prescriptions given X 4. Signatures: Dispatcher [employer] EDMS Kevan Vasques MD MD cha Whitley, Kimberlee kw Moreno, Amanda am2 Davies, Jonathon, RN RN jd3 Do Payne cc3
--- NOTE | 2019-04-27 05:15 | EDPHYS ---
Physician Documentation [facility] Name: Chelsea Cristobal Age: 63 yrs Sex: Female : 1955 Arrival Date: 04/27/2019 Time: 02:13 Bed 17 Private MD: MARIELLE Physician Kevan Vasques HPI: 04/27 02:25 This 63 yrs old Black Female presents to ER via Ambulatory with complaints of Abdominal sung Pain. 02:25 The patient presents with abdominal pain in the upper abdomen, in the lower abdomen, sung abdominal distention in the upper abdomen, in the lower abdomen. Onset: The symptoms/episode began/occurred 2 day(s) ago. The symptoms do not radiate. Associated signs and symptoms: Pertinent positives: nausea and vomiting, nausea, vomiting. The symptoms are described as constant, crampy. Modifying factors: The symptoms are alleviated by remaining still, the symptoms are aggravated by coughing, food. Severity of pain: At its worst the pain was moderate in the emergency department the pain is unchanged. The patient has not experienced similar symptoms in the past. Historical: - Allergies: 02:22 No Known Allergies; jd3 - Home Meds: 02:22 None [Active]; jd3 - PMHx: 02:22 None; jd3 - PSHx: 02:22 Hysterectomy; Appendectomy; jd3 - Immunization history:: Adult Immunizations up to date. - Social history:: Smoking status: Patient/guardian denies using tobacco. - Ebola Screening: : Patient negative for fever greater than or equal to 101.5 degrees Fahrenheit, and additional compatible Ebola Virus Disease symptoms. - Family history:: not pertinent. ROS: 02:25 Constitutional: Negative for fever, chills, and weight loss, Eyes: Negative for injury, sung pain, redness, and discharge, ENT: Negative for injury, pain, and discharge, Neck: Negative for injury, pain, and swelling, Cardiovascular: Negative for chest pain, palpitations, and edema, Respiratory: Negative for shortness of breath, cough, wheezing, and pleuritic chest pain, Back: Negative for injury and pain, : Negative for injury, bleeding, discharge, and swelling, MS/Extremity: Negative for injury and deformity, Skin: Negative for injury, rash, and discoloration, Neuro: Negative for headache, weakness, numbness, tingling, and seizure, Psych: Negative for depression, anxiety, suicide ideation, homicidal ideation, and hallucinations, Allergy/Immunology: Negative for hives, rash, and allergies. Exam: 02:25 Constitutional: This is a well developed, well nourished patient who is awake, alert, sung and in no acute distress. Head/Face: Normocephalic, atraumatic. Eyes: Pupils equal round and reactive to light, extra-ocular motions intact. Lids and lashes normal. Conjunctiva and sclera are non-icteric and not injected. Cornea within normal limits. Periorbital areas with no swelling, redness, or edema. ENT: Nares patent. No nasal discharge, no septal abnormalities noted. Tympanic membranes are normal and external auditory canals are clear. Oropharynx with no redness, swelling, or masses, exudates, or evidence of obstruction, uvula midline. Mucous membranes moist. Neck: Trachea midline, no thyromegaly or masses palpated, and no cervical lymphadenopathy. Supple, full range of motion without nuchal rigidity, or vertebral point tenderness. No Meningismus. Chest/axilla: Normal chest wall appearance and motion. Nontender with no deformity. No lesions are appreciated. Cardiovascular: Regular rate and rhythm with a normal S1 and S2. No gallops, murmurs, or rubs. Normal PMI, no JVD. No pulse deficits. Respiratory: Lungs have equal breath sounds bilaterally, clear to auscultation and percussion. No rales, rhonchi or wheezes noted. No increased work of breathing, no retractions or nasal flaring. Back: No spinal tenderness. No costovertebral tenderness. Full range of motion. Female : Normal external genitalia. Skin: Warm, dry with normal turgor. Normal color with no rashes, no lesions, and no evidence of cellulitis. MS/ Extremity: Pulses equal, no cyanosis. Neurovascular intact. Full, normal range of motion. Neuro: Awake and alert, GCS 15, oriented to person, place, time, and situation. Cranial nerves II-XII grossly intact. Motor strength 5/5 in all extremities. Sensory grossly intact. Cerebellar exam normal. Normal gait. Psych: Awake, alert, with orientation to person, place and time. Behavior, mood, and affect are within normal limits. 02:25 Abdomen/GI: Inspection: distension, Bowel sounds: hyperactive, Palpation: moderate abdominal tenderness, in all quadrants, Liver: no appreciated palpable abnormalities, Hernia: not appreciated. Vital Signs: 02:22 BP 120 / 87; Pulse 88; Resp 16 S; Temp 98.0(TE); Pulse Ox 99% on R/A; Weight 92.08 kg jd3 (R); Height 5 ft. 4 in. (162.56 cm) (R); Pain 9/10; 03:32 BP 134 / 79; Pulse 73; Resp 17 S; Pulse Ox 100% on R/A; cc3 04:45 BP 121 / 78; Pulse 76; Resp 17 S; Pulse Ox 96% on R/A; cc3 05:45 BP 117 / 84; Pulse 74; Resp 16 S; Pulse Ox 100% on R/A; cc3 02:22 Body Mass Index 34.84 (92.08 kg, 162.56 cm) jd3 MDM: 02:28 Data reviewed: vital signs, nurses notes, lab test result(s), EKG, radiologic studies, [facility] CT scan, plain films. 02:29 Patient medically screened. [facility] 04/27 02:24 Order name: Basic Metabolic Panel [facility] 04/27 02:24 Order name: CBC with Diff [facility] 04/27 02:24 Order name: LFT's [facility] 04/27 02:24 Order name: Magnesium [facility] 04/27 02:24 Order name: NT PRO-BNP [facility] 04/27 02:24 Order name: PT-INR; Complete Time: 05:12 [facility] 04/27 02:24 Order name: Troponin (emerg Dept Use Only); Complete Time: 05:01 [facility] 04/27 02:24 Order name: Lipase; Complete Time: 05:01 [facility] 04/27 02:24 Order name: Urine Culture [facility] 04/27 02:26 Order name: Basic Metabolic Panel; Complete Time: 05:01 [facility] 04/27 02:26 Order name: CBC with Automated Diff; Complete Time: 05:01 [facility] 04/27 02:26 Order name: Liver (Hepatic) Function; Complete Time: 05:01 [facility] 04/27 02:26 Order name: Magnesium; Complete Time: 05:01 [facility] 04/27 02:26 Order name: NT PRO-BNP; Complete Time: 05:01 [facility] 04/27 02:24 Order name: XRAY Chest (1 view) [facility] 04/27 02:24 Order name: EKG; Complete Time: 02:27 [facility] 04/27 02:24 Order name: Cardiac monitoring; Complete Time: 02:36 [facility] 04/27 02:24 Order name: EKG - Nurse/Tech; Complete Time: 03:31 [facility] 04/27 02:24 Order name: IV Saline Lock; Complete Time: 03:31 [facility] 04/27 02:24 Order name: Labs collected and sent; Complete Time: 05:00 [facility] 04/27 02:24 Order name: CT Abd/Pelvis - PO and IV Contrast [facility] 04/27 05:14 Order name: Urine Dipstick--Ancillary (enter results) ag 04/27 02:24 Order name: O2 Per Protocol; Complete Time: 02:36 [facility] 04/27 02:24 Order name: O2 Sat Monitoring; Complete Time: 02:36 [facility] 04/27 02:24 Order name: Urine Dipstick-Ancillary (obtain specimen); Complete Time: 04:36 [facility] Administered Medications: 03:15 Drug: NS 0.9% 1000 ml Route: IV; Rate: 1 bolus; Site: left antecubital; cc3 04:15 Follow up: Response: No adverse reaction; IV Status: Completed infusion; IV Intake: cc3 1000ml 03:15 Drug: morphine 4 mg Route: IVP; Site: left antecubital; cc3 03:40 Follow up: Response: No adverse reaction; Pain is decreased cc3 03:18 Drug: Zofran 4 mg Route: IVP; Site: left antecubital; cc3 04:00 Follow up: Response: No adverse reaction; Nausea is decreased cc3 03:23 Drug: Pepcid 20 mg Route: IVP; Site: left antecubital; cc3 03:40 Follow up: Response: No adverse reaction; Pain is decreased cc3 03:28 Drug: Flagyl 500 mg Volume: 100 ml; Route: IVPB; Rate: 200 ml/hr; Infused Over: 30 cc3 mins; Site: left antecubital; 04:00 Follow up: Response: No adverse reaction; IV Status: Completed infusion; IV Intake: cc3 100ml 04:00 Drug: Cipro 400 mg Volume: 200 ml; Route: IVPB; Infused Over: 60 mins; Site: left cc3 antecubital; 05:10 Follow up: Response: No adverse reaction; IV Status: Completed infusion; IV Intake: cc3 200ml 05:30 Drug: morphine 4 mg Route: IVP; Site: left antecubital; cc3 06:00 Follow up: Response: No adverse reaction; Pain is decreased cc3 05:38 Drug: Zofran 4 mg Route: IVP; Site: left antecubital; cc3 06:00 Follow up: Response: No adverse reaction; Nausea is decreased cc3 Disposition: 04/27/19 05:14 Discharged to Home. Impression: Abdominal tenderness, Urinary tract infection, site not specified, Nausea and vomiting. - Condition is Stable. - Discharge Instructions: Abdominal Pain, Adult, Dysuria, Nausea and Vomiting, Adult, Urinary Tract Infection, Adult, Urinary Tract Infection, Adult, [id number], Abdominal Pain, Adult, [id number]. - Prescriptions for Bentyl 20 mg Oral Tablet - take 1 tablet by ORAL route every 6 hours As needed; 20 tablet. Cipro 250 mg Oral Tablet - take 1 tablet by ORAL route every 12 hours; 14 tablet. Pepcid 20 mg Oral Tablet - take 1 tablet by ORAL route every 12 hours for 10 days; 20 tablet. Zofran 4 mg Oral Tablet - take 1 tablet by ORAL route every 12 hours As needed; 20 tablet. - Medication Reconciliation Form, Thank You Letter, Antibiotic Education, Prescription Opioid Use form. - Follow up: Private Physician; When: 2 - 3 days; Reason: Recheck today's complaints, Continuance of care, Re-evaluation by your physician. Follow up: Ryan Howe MD; When: 2 - 3 days; Reason: Recheck today's complaints, Re-evaluation by your physician. - Problem is new. - Symptoms have improved. Signatures: Dispatcher [employer] EDMS Kevan Vasques MD MD cha Davies, Jonathon, RN RN Do Moreira cc3 Corrections: (The following items were deleted from the chart) 06:00 05:14 04/27/2019 05:14 Discharged to Home. Impression: Abdominal tenderness; Urinary cc3 tract infection, site not specified; Nausea and vomiting. Condition is Stable. Forms are Medication Reconciliation Form, Thank You Letter, Antibiotic Education, Prescription Opioid Use. Follow up: Private Physician; When: 2 - 3 days; Reason: Recheck today's complaints, Continuance of care, Re-evaluation by your physician. Follow up: Ryan Howe; When: 2 - 3 days; Reason: Recheck today's complaints, Re-evaluation by your physician. Problem is new. Symptoms have improved. sung
[2019-04-27 06:13] LABS: Urine Blood TRACE (NEG); Urine Glucose NEGATIVE (NEG); Urine Protein NEGATIVE (NEG); Urine pH 6.5 (5.0-7.0)
--- NOTE | 2019-04-27 08:20 | RAD REPORT ---
EXAM DESCRIPTION: RAD - Chest Single View - 04/27/2019 2:57 am CLINICAL HISTORY: ABDOMINAL DISTENTION Chest pain. COMPARISON: Chest Single View dated 10/10/2018; Chest Single View dated 03/28/2018; Chest Single View dated 11/17/2017; CHEST SINGLE VIEW dated 08/13/2010 FINDINGS: Portable technique limits examination quality. The lungs are underinflated but grossly clear. The heart is normal in size. No displaced fractures. IMPRESSION: No acute intrathoracic process suspected.
--- NOTE | 2019-04-27 10:23 | RAD REPORT ---
EXAM DESCRIPTION: CT Abdomen and Pelvis With Intravenous Contrast CLINICAL HISTORY: The patient is 63 years old and is Female; ABD PAIN TECHNIQUE: Axial computed tomography images of the abdomen and pelvis with intravenous contrast. S agittal and coronal reformatted images were created and reviewed. This CT exam was performed using one or more of the following dose reduction techniques: automated exposure control, adjustment of t he mA and/or kV according to patient size, and/or use of iterative reconstruction technique. COMPARISON: No relevant prior studies available. FINDINGS: LUNG BASES: Minimal dependent densities in the lung bases are present. ABDOMEN: LIVER: Unremarkable. No mass. GALLBLADDER AND BILE DUCTS: Surgical clips are present in the right upper quadrant, consistent w ith previous cholecystectomy. Moderate biliary dilatation is present. PANCREAS: The pancreas is atrophic. SPLEEN: Unremarkable. ADRENALS: Unremarkable. No mass. KIDNEYS AND URETERS: Unremarkable. No solid mass. No hydronephrosis. STOMACH AND BOWEL: The stomach is decompressed. The small bowel is distended with oral contrast and is normal in caliber. Stool and oral contrast are present throughout the colon. There is no mucos al thickening or evidence of bowel obstruction. PELVIS: APPENDIX: The appendix is surgically absent. BLADDER: The bladder is well distended. REPRODUCTIVE: The patient is status post hysterectomy. ABDOMEN and PELVIS: INTRAPERITONEAL SPACE: Unremarkable. No free air. No significant fluid collection. BONES/JOINTS: Mild multilevel degenerative changes spine is present. SOFT TISSUES: The soft tissues are normal. VASCULATURE: Unremarkable. No abdominal aortic aneurysm. LYMPH NODES: Unremarkable. No enlarged lymph nodes. IMPRESSION: No acute findings on this contrasted CT of the abdomen and pelvis to explain the patient 's symptoms. Electronically signed by: Mercy Grijalva MD 04/27/2019 4:54 AM CDT Due to temporary technical issues with the PACS/Fluency reporting system, reports are being signed by the in house radiologist as a courtesy to ensure prompt reporting. The interpreting radiologist is margaux lowely responsible for the content of the report.
--- NOTE | 2019-04-27 10:57 | EKG ---
Test Date: 2019-04-27 Test Time: 02:58:47 [employer] Founder: YEISON MEASUREMENT RESULTS: Intervals: Rate: 78 AZ: 148 QRSD: 82 QT: 386 QTc: 440 Lawrence: P: 49 AZ: 148 QRS: -20 T: 13 INTERPRETIVE STATEMENTS: Normal sinus rhythm Possible Left atrial enlargement Left ventricular hypertrophy Abnormal ECG Compared to ECG 10/11/2018 01:38:05 No significant changes Electronically Signed On 04-27-19 10:54:51 CDT by Huber Randhawa
== END 2019-04-27 06:00 | disposition home or self-care (01) ==
LOC: ER 02:10
DX: N39.0 Urinary tract infection, site not specified (principal); R11.2 Nausea with vomiting, unspecified
CPT/HCPCS: 36415; 71045; 74177; 80048; 80076; 81003; 83690; 83735; 83880; 84484; 85025; 85610; 87086; 87088; 93005; 96365; 96367; 96375; 99284; J0744; J2405; J7030; Q9967

== ENCOUNTER 2019-07-06 22:33 | Emergency (ER) | payer MEDICAID ==
[2019-07-06] MEDS ORDERED: HYDROCODONE/APAP 5/325 MG TAB ONE (23:24)
[2019-07-07] MEDS ORDERED: HYDROCODONE/APAP 5/325 MG TAB ONE (00:33)
[2019-07-07] MEDS ORDERED: KETOROLAC 30 MG/ML INJ ONE (00:34)
--- NOTE | 2019-07-07 00:41 | ER ---
Nurse's Notes [facility] Name: Chelsea Cristobal Age: 63 yrs Sex: Female : 1955 Arrival Date: 07/06/2019 Time: 22:36 Bed 13 Private MD: Diagnosis: Pain in right ankle and joints of right foot Presentation: 07/06 22:43 Presenting complaint: Patient states: she was getting out of the shower and fell bb injuring right ankle pt has had prior surgery to that ankle she denies LOC. Care prior to arrival: None. Mechanism of Injury: Fall from standing position. Trauma event details: Injury occurred in the [facility], Injury occurred: at home. Injury occurred: July 06, 2019. 22:43 Acuity: INDIO 3 bb 22:43 Method Of Arrival: Wheelchair bb 22:46 Transition of care: patient was not received from another setting of care. Onset of bb symptoms was July 06, 2019. Risk Assessment: Do you want to hurt yourself or someone else? Patient reports no desire to harm self or others. Initial Sepsis Screen: Does the patient meet any 2 criteria? No. Patient's initial sepsis screen is negative. Does the patient have a suspected source of infection? No. Patient's initial sepsis screen is negative. Trauma Activation: Not Applicable Physician: ED Physician; Name: ; Notified At: ; Arrived At: Physician: General Surgeon; Name: ; Notified At: ; Arrived At: Physician: Radiology; Name: ; Notified At: ; Arrived At: Physician: Respiratory; Name: ; Notified At: ; Arrived At: Physician: Lab; Name: ; Notified At: ; Arrived At: Historical: - Allergies: 22:47 No Known Allergies; bb - Home Meds: 22:47 None [Active]; bb - PMHx: 22:47 None; bb - PSHx: 22:47 Hysterectomy; Appendectomy; right ankle surgery; bb - Immunization history: Last tetanus immunization: unknown. - Social history:: Smoking status: Patient/guardian denies using tobacco. - Ebola Screening: : No symptoms or risks identified at this time. Screenin:43 Abuse screen: Denies threats or abuse. Tuberculosis screening: No symptoms or risk bb factors identified. 23:06 Nutritional screening: No deficits noted. Fall Risk Fall in past 12 months (25 points). rr5 Gait- Impaired (20 pts.). Total Ang Fall Scale indicates High Risk Score (45 or more points). Fall prevention measures have been instituted. Side Rails Up X 2 Placed Close to Nursing Station Frequent Obs/Assessments Occuring Family Present and informed to notify staff if the need to leave the bedside As available patient and family educated on Fall Prevention Program and Strategies. Primary Survey: 22:43 NO uncontrolled hemorrhage observed. A: The patient is alert. Airway: patent. bb Breathing/Chest: Respiratory pattern: regular, Respiratory effort: spontaneous. Circulation: Heart tones present. Disability Alert. Exposure/Environment: A warming method has been applied: A warm blanket has been provided to the patient. 23:43 Reassessment Airway Airway Patent Breathing/Chest Respiratory pattern Regular rr5 Respiratory effort Spontaneous Unlabored Breath sounds Clear Chest inspection Symmetrical Circulation Heart rhythm Sinus rhythm Heart tones Present Disability Alert. Secondary Survey: 22:43 Musculoskeletal: Swelling present in right ankle. bb Assessment: 23:00 General: Appears in no apparent distress. uncomfortable, Behavior is calm, cooperative, rr5 appropriate for age. Pain: Complains of pain in right ankle Pain does not radiate. Pain currently is 10 out of 10 on a pain scale. Quality of pain is described as aching, Pain began suddenly, Is intermittent. Neuro: Level of Consciousness is awake, alert, obeys commands, Oriented to person, place, time, situation, Appropriate for age. Cardiovascular: Capillary refill < 3 seconds Patient's skin is warm and dry. Respiratory: Airway is patent Respiratory effort is even, unlabored, Respiratory pattern is regular, symmetrical. GI: No signs and/or symptoms were reported involving the gastrointestinal system. : No signs and/or symptoms were reported regarding the genitourinary system. EENT: No signs and/or symptoms were reported regarding the EENT system. Derm: Skin is intact, Skin is pink, warm \T\ dry. Musculoskeletal: Circulation, motion, and sensation intact. Capillary refill < 3 seconds, Swelling present in right ankle Reports pain in right ankle Pain is 10 out of 10 on a pain scale. Vital Signs: 22:43 BP 126 / 66; Pulse 80; Resp 18 S; Temp 97.4(O); Pulse Ox 100% on R/A; Weight 83.46 kg bb (R); Height 5 ft. 4 in. (162.56 cm) (R); Pain 10/10; 22:43 Body Mass Index 31.58 (83.46 kg, 162.56 cm) bb [place] Coma Score: 22:43 Eye Response: spontaneous(4). Verbal Response: oriented(5). Motor Response: obeys bb commands(6). Total: 15. Trauma Score (Adult): 22:43 Eye Response: spontaneous(1); Verbal Response: oriented(1); Motor Response: obeys bb commands(2); Systolic BP: > 89 mm Hg(4); Respiratory Rate: 10 to 29 per min(4); [place] Score: 15; Trauma Score: 12 ED Course: 22:36 Patient arrived in ED. do 22:43 Patient has correct armband on for positive identification. bb 22:43 Patient maintains SpO2 saturation greater than 95% on room air. bb 22:43 Thermoregulation: warm blanket given to patient. rr5 22:44 Triage completed. bb 22:47 Arm band placed on Patient placed in an exam room, on a stretcher, on pulse oximetry. bb Family accompanied patient. 22:51 Iraj Salter NP is PHCP. pm1 22:51 Johnny Pike MD is Attending Physician. pm1 22:59 Kana Gutierrez RN is Primary Nurse. rr5 23:06 No provider procedures requiring assistance completed. rr5 23:08 Warm blanket given. Pillow given. Ice pack to injury. Elevated right leg. rr5 23:45 X-ray completed. Patient tolerated procedure well. kw 23:50 Ankle Right 3 View XRAY In Process Unspecified. EDMS 23:50 Foot Right 3 View XRAY In Process Unspecified. EDMS 07/07 01:20 Patient did not have IV access during this emergency room visit. rr5 Administered Medications: 07/06 23:25 Drug: [place] 5 mg-325 mg 1 tabs {Note: rass 0..} Route: PO; rr5 07/07 00:25 Follow up: Response: No adverse reaction; RASS: Alert and Calm (0) rr5 00:42 Drug: [place] 5 mg-325 mg 1 tabs {Note: rass 0.} Route: PO; rr5 01:18 Follow up: Response: No adverse reaction; RASS: Alert and Calm (0) rr5 00:42 Drug: TORadol 30 mg Route: IM; Site: left deltoid; rr5 01:18 Follow up: Response: No adverse reaction rr5 Intake: 07/06 22:43 PO: 0ml; Total: 0ml. bb Outcome: 07/07 00:36 Discharge ordered by . pm1 01:20 Discharged to home via wheelchair, with crutches, with family. rr5 01:20 Condition: stable 01:20 Discharge instructions given to patient, Instructed on discharge instructions, follow up and referral plans. medication usage, crutch walking, Demonstrated understanding of instructions, follow-up care, medications, crutch walking, Prescriptions given X 1. 01:20 Patient's length of stay was not longer than 2 hours. rr5 01:24 Patient left the ED. rr5 Signatures: Dispatcher [employer] EDMelody Tracy, RN RN bb Emily Collazo Danielle do Marinas, Patrick, NP MANAGER MANAGED CARE pm1 Kana Gutierrez, JIGNESH RN rr5
--- NOTE | 2019-07-07 00:42 | EDPHYS ---
Physician Documentation [facility] Name: Chelsea Cristobal Age: 63 yrs Sex: Female : 1955 Arrival Date: 07/06/2019 Time: 22:36 Bed 13 Private MD: ED Physician Johnny Pike HPI: 07/07 00:30 This 63 yrs old Black Female presents to ER via Wheelchair with complaints of Fall pm1 Injury, Right ankle pain. 00:30 Details of fall: The patient fell from an upright position, while standing. Onset: The pm1 symptoms/episode began/occurred today. Associated injuries: The patient sustained right ankle. Severity of symptoms: in the emergency department the symptoms are unchanged. prior right ankle fracture with internal fixation. The patient has not recently seen a physician. Patient slipped getting out of shower and presenting with pain to right ankle. Historical: - Allergies: 07/06 22:47 No Known Allergies; bb - Home Meds: 22:47 None [Active]; bb - PMHx: 22:47 None; bb - PSHx: 22:47 Hysterectomy; Appendectomy; right ankle surgery; bb - Immunization history: Last tetanus immunization: unknown. - Social history:: Smoking status: Patient/guardian denies using tobacco. - Ebola Screening: : No symptoms or risks identified at this time. ROS: 07/07 00:30 Constitutional: Negative for fever, chills, and weight loss, Eyes: Negative for injury, pm1 pain, redness, and discharge, ENT: Negative for injury, pain, and discharge, Neck: Negative for injury, pain, and swelling, Cardiovascular: Negative for chest pain, palpitations, and edema, Respiratory: Negative for shortness of breath, cough, wheezing, and pleuritic chest pain, Abdomen/GI: Negative for abdominal pain, nausea, vomiting, diarrhea, and constipation, Back: Negative for injury and pain. Skin: Negative for injury, rash, and discoloration, Neuro: Negative for headache, weakness, numbness, tingling, and seizure. MS/extremity: Positive for pain, of the right ankle, Negative for decreased range of motion, deformity. Exam: 00:30 Constitutional: This is a well developed, well nourished patient who is awake, alert, pm1 and in no acute distress. Head/Face: Normocephalic, atraumatic. Eyes: Pupils equal round and reactive to light, extra-ocular motions intact. Lids and lashes normal. Conjunctiva and sclera are non-icteric and not injected. Cornea within normal limits. Periorbital areas with no swelling, redness, or edema. ENT: Nares patent. No nasal discharge, no septal abnormalities noted. Tympanic membranes are normal and external auditory canals are clear. Oropharynx with no redness, swelling, or masses, exudates, or evidence of obstruction, uvula midline. Mucous membranes moist. Neck: Trachea midline, no thyromegaly or masses palpated, and no cervical lymphadenopathy. Supple, full range of motion without nuchal rigidity, or vertebral point tenderness. No Meningismus. Chest/axilla: Normal chest wall appearance and motion. Nontender with no deformity. No lesions are appreciated. Cardiovascular: Regular rate and rhythm with a normal S1 and S2. No gallops, murmurs, or rubs. Normal PMI, no JVD. No pulse deficits. Respiratory: Lungs have equal breath sounds bilaterally, clear to auscultation and percussion. No rales, rhonchi or wheezes noted. No increased work of breathing, no retractions or nasal flaring. Abdomen/GI: Soft, non-tender, with normal bowel sounds. No distension or tympany. No guarding or rebound. No evidence of tenderness throughout. Back: No spinal tenderness. No costovertebral tenderness. Full range of motion. Skin: Warm, dry with normal turgor. Normal color with no rashes, no lesions, and no evidence of cellulitis. 00:30 Musculoskeletal/extremity: Extremities: grossly normal except: noted in the right ankle: There is no evidence of decreased ROM, deformity. Vital Signs: 07/06 22:43 BP 126 / 66; Pulse 80; Resp 18 S; Temp 97.4(O); Pulse Ox 100% on R/A; Weight 83.46 kg bb (R); Height 5 ft. 4 in. (162.56 cm) (R); Pain 10/; 22:43 Body Mass Index 31.58 (83.46 kg, 162.56 cm) bb [place] Coma Score: 22:43 Eye Response: spontaneous(4). Verbal Response: oriented(5). Motor Response: obeys bb commands(6). Total: 15. Trauma Score (Adult): 22:43 Eye Response: spontaneous(1); Verbal Response: oriented(1); Motor Response: obeys bb commands(2); Systolic BP: > 89 mm Hg(4); Respiratory Rate: 10 to 29 per min(4); [place] Score: 15; Trauma Score: 12 MDM: 23:06 Patient medically screened. pm1 07/07 00:35 Data reviewed: vital signs. Data interpreted: Pulse oximetry: on room air is 100 %. pm1 Interpretation: normal. Counseling: I had a detailed discussion with the patient and/or guardian regarding: the historical points, exam findings, and any diagnostic results supporting the discharge/admit diagnosis, radiology results, the need for outpatient follow up, for definitive care, a orthopedic surgeon, to return to the emergency department if symptoms worsen or persist or if there are any questions or concerns that arise at home. 07/06 23:09 Order name: Ankle Right 3 View XRAY pm1 07/06 23:09 Order name: Foot Right 3 View XRAY pm1 07/07 00:37 Order name: Crutches; Complete Time: 01:18 pm1 07/07 00:37 Order name: Splint - Ankle: Orthoglass: Stirrup; Complete Time: 01:18 pm1 Administered Medications: 07/06 23:25 Drug: [place] 5 mg-325 mg 1 tabs {Note: rass 0..} Route: PO; rr5 07/07 00:25 Follow up: Response: No adverse reaction; RASS: Alert and Calm (0) rr5 00:42 Drug: [place] 5 mg-325 mg 1 tabs {Note: rass 0.} Route: PO; rr5 01:18 Follow up: Response: No adverse reaction; RASS: Alert and Calm (0) rr5 00:42 Drug: TORadol 30 mg Route: IM; Site: left deltoid; rr5 01:18 Follow up: Response: No adverse reaction rr5 Disposition: 05:46 Co-signature as Attending Physician, Johnny Pike MD I agree with the assessment and tw4 plan of care. Disposition: 07/07/19 00:36 Discharged to Home. Impression: Pain in right ankle and joints of right foot. - Condition is Stable. - Discharge Instructions: Cast or Splint Care, Adult, Crutch Use, Ankle Pain. - Prescriptions for Tramadol 50 mg Oral Tablet - take 1 tablet by ORAL route every 8 hours as needed; 12 tablet. - Medication Reconciliation Form, Thank You Letter, Antibiotic Education, Prescription Opioid Use form. - Follow up: Emergency Department; When: As needed; Reason: Worsening of condition. Follow up: Private Physician; When: 2 - 3 days; Reason: Recheck today's complaints, Continuance of care, Re-evaluation by your physician. - Problem is new. - Symptoms have improved. Signatures: Dispatcher [employer] EDMS Melody Shipley, RN RN bb Iraj Salter, NADYA MOLDER WAX BALL pm1 Johnny Pike MD MD tw4 Kana Gutierrez RN RN rr5 Corrections: (The following items were deleted from the chart) 01:24 00:36 07/07/2019 00:36 Discharged to Home. Impression: Pain in right ankle and joints rr5 of right foot. Condition is Stable. Forms are Medication Reconciliation Form, Thank You Letter, Antibiotic Education, Prescription Opioid Use. Follow up: Emergency Department; When: As needed; Reason: Worsening of condition. Follow up: Private Physician; When: 2 - 3 days; Reason: Recheck today's complaints, Continuance of care, Re-evaluation by your physician. Problem is new. Symptoms have improved. pm1
[2019-07-07 01:37] VITALS: BP 126/66; TEMP 97.4; O2SAT 100
--- NOTE | 2019-07-07 08:00 | RAD REPORT ---
EXAM DESCRIPTION: RAD - Ankle Right 3 View - 07/06/2019 11:49 pm CLINICAL HISTORY: Right ankle pain FINDINGS: Sideplate and screws affix old fractures of the distal fibula and tibia. No acute fracture or dislocation seen
--- NOTE | 2019-07-07 08:02 | RAD REPORT ---
EXAM DESCRIPTION: RAD - Foot Right 3 View - 07/06/2019 11:49 pm CLINICAL HISTORY: Right foot pain status post injury FINDINGS: No fracture or dislocation is seen. Osteoporosis
== END 2019-07-07 01:24 | disposition home or self-care (01) ==
LOC: ER 22:33
DX: M25.571 Pain in right ankle and joints of right foot (principal)
CPT/HCPCS: 96372; 99284

== ENCOUNTER 2019-08-14 21:40 | Emergency (ER) | payer MEDICAID ==
[2019-08-14] MEDS ORDERED: DIPHENHYDRAMINE 50 MG/ML VIAL ONE (22:28)
[2019-08-14] MEDS ORDERED: METOCLOPRAMIDE 10 MG/2mL INJ ONE (22:28)
--- NOTE | 2019-08-14 23:30 | ER ---
Nurse's Notes [facility] Name: Chelsea Cristobal Age: 63 yrs Sex: Female : 1955 Arrival Date: 08/14/2019 Time: 21:44 Bed 17 Private MD: Diagnosis: Headache Presentation: 08/14 21:59 Presenting complaint: Patient states: Headache that began at 1700 tonight; complaint of lp1 pain to temples, nausea, light sensitivity; Similar to previous headaches; No relief with Tylenol and Ibuprofen at home. Transition of care: patient was not received from another setting of care. Onset of symptoms was August 14, 2019 at 17:00. Risk Assessment: Do you want to hurt yourself or someone else? Patient reports no desire to harm self or others. Initial Sepsis Screen: Does the patient meet any 2 criteria? No. Patient's initial sepsis screen is negative. Does the patient have a suspected source of infection? No. Patient's initial sepsis screen is negative. Care prior to arrival: None. 21:59 Method Of Arrival: Ambulatory lp1 21:59 Acuity: INDIO 3 lp1 Triage Assessment: 23:00 Pain: Also complains of no other associated symptoms. mg2 23:00 Headache History: The patient has had previous headaches and this one is more severe mg2 than previous episodes. Historical: - Allergies: 22:01 No Known Allergies; lp1 - Home Meds: 22:01 None [Active]; lp1 - PMHx: 22:01 None; lp1 - PSHx: 22:01 Appendectomy; Hysterectomy; lp1 - Immunization history:: Adult Immunizations up to date. - Social history:: Smoking status: Patient/guardian denies using tobacco. - Ebola Screening: : No symptoms or risks identified at this time. Screenin:03 Abuse screen: Denies threats or abuse. Denies injuries from another. Nutritional lp1 screening: No deficits noted. Tuberculosis screening: No symptoms or risk factors identified. Fall Risk None identified. Assessment: 22:26 General: Appears in no apparent distress. comfortable, Behavior is calm, cooperative. mg2 Pain: Complains of pain in left rastafari and right rastafari Pain does not radiate. Pain currently is 8 out of 10 on a pain scale. Quality of pain is described as throbbing, Pain began gradually, 1 day ago. Is intermittent. Neuro: Level of Consciousness is awake, alert, obeys commands, Oriented to person, place, time, situation, Reports headache in right in left rastafari. Cardiovascular: Capillary refill < 3 seconds Patient's skin is warm and dry. Respiratory: Airway is patent Respiratory effort is even, unlabored, Respiratory pattern is regular, symmetrical. GI: No signs and/or symptoms were reported involving the gastrointestinal system. GI: Reports nausea. : No signs and/or symptoms were reported regarding the genitourinary system. EENT: No signs and/or symptoms were reported regarding the EENT system. Derm: Skin is intact, is healthy with good turgor, Skin is pink, warm \T\ dry. normal. Musculoskeletal: Circulation, motion, and sensation intact. Capillary refill < 3 seconds. 23:42 Reassessment: Patient states feeling better. Patient states symptoms have improved. mg2 Vital Signs: 22:02 BP 145 / 93; Pulse 67; Resp 18; Temp 98.1(TE); Pulse Ox 98% on R/A; Weight 82.55 kg; lp1 Height 5 ft. 4 in. (162.56 cm); Pain 9/10; 23:42 BP 118 / 77; Pulse 68; Resp 18; Temp 98; Pulse Ox 100% on R/A; Pain 0/10; mg2 22:02 Body Mass Index 31.24 (82.55 kg, 162.56 cm) lp1 ED Course: 21:44 Patient arrived in ED. cl3 22:01 Triage completed. lp1 22:01 Arm band placed on. lp1 22:11 [facility] Cooper [facility] jr8 22:11 Kevan Vasques MD is Attending Physician. jr8 22:16 Ezequiel Thomas RN is Primary Nurse. mg2 22:25 Patient has correct armband on for positive identification. Pulse ox on. NIBP on. Door mg2 closed. Warm blanket given. 22:25 No provider procedures requiring assistance completed. Inserted saline lock: 22 gauge mg2 in right hand, using aseptic technique. 23:42 IV discontinued, intact, bleeding controlled, No redness/swelling at site. Pressure mg2 dressing applied. Administered Medications: 22:35 Drug: Reglan 10 mg Route: IVP; Site: right hand; mg2 23:42 Follow up: Response: No adverse reaction; Marked relief of symptoms mg2 22:36 Drug: Benadryl 25 mg Route: IVP; Site: right hand; mg2 23:42 Follow up: Response: No adverse reaction; Marked relief of symptoms mg2 Outcome: 23:30 Discharge ordered by MD. wilkins 23:43 Discharged to home via wheelchair, with family. mg2 23:43 Condition: stable 23:43 Discharge instructions given to patient, family, Instructed on discharge instructions, follow up and referral plans. Demonstrated understanding of instructions, follow-up care. 23:43 Patient left the ED. mg2 Signatures: Carmen Ballesteros RN RN lp1 Ramses Cooper PA PA jr8 Ezequiel Thomas RN RN mg2 Marlena Jamison cl3
--- NOTE | 2019-08-14 23:31 | EDPHYS ---
Physician Documentation [facility] Name: Chelsea Cristobal Age: 63 yrs Sex: Female : 1955 Arrival Date: 08/14/2019 Time: 21:44 Bed 17 Private MD: ED Physician Kevan Vasques HPI: 08/14 22:22 This 63 yrs old Black Female presents to ER via Ambulatory with complaints of Headache. jr8 22:22 The patient complains of pain to the right sikhism and left sikhism. The patient jr8 describes the headache as pounding. Onset: The symptoms/episode began/occurred at 17:00. Associated signs and symptoms: Pertinent positives: nausea, Pertinent negatives: altered mental status, fever, neck stiffness, paresthesias, vision changes, vision loss, vomiting. Severity of symptoms: At its worst the pain was moderate. Headache History: The patient has had previous headaches and this one is similar to previous episodes, and this one is more severe than previous episodes. The symptoms are alleviated by nothing. the symptoms are aggravated by lights. Pt reports onset of CUELLAR at 1700 today, is similar to previous CUELLAR but worse. Historical: - Allergies: 22:01 No Known Allergies; lp1 - Home Meds: 22:01 None [Active]; lp1 - PMHx: 22:01 None; lp1 - PSHx: 22:01 Appendectomy; Hysterectomy; lp1 - Immunization history:: Adult Immunizations up to date. - Social history:: Smoking status: Patient/guardian denies using tobacco. - Ebola Screening: : No symptoms or risks identified at this time. ROS: 22:24 Constitutional: Negative for fever, chills, and weight loss, Eyes: Negative for injury, jr8 pain, redness, and discharge, ENT: Negative for injury, pain, and discharge, Neck: Negative for injury, pain, and swelling, Cardiovascular: Negative for chest pain, palpitations, and edema, Respiratory: Negative for shortness of breath, cough, wheezing, and pleuritic chest pain, Abdomen/GI: Negative for abdominal pain, nausea, vomiting, diarrhea, and constipation, Back: Negative for injury and pain, MS/Extremity: Negative for injury and deformity, Skin: Negative for injury, rash, and discoloration. 22:24 Neuro: Positive for headache, Negative for altered mental status, dizziness, loss of consciousness, numbness, seizure activity, syncope, visual changes, weakness, acute changes. Exam: 22:24 Constitutional: This is a well developed, well nourished patient who is awake, alert, jr8 and in no acute distress. Head/Face: Normocephalic, atraumatic. Eyes: Pupils equal round and reactive to light, extra-ocular motions intact. Lids and lashes normal. Conjunctiva and sclera are non-icteric and not injected. Cornea within normal limits. Periorbital areas with no swelling, redness, or edema. ENT: Mucous membranes moist. Neck: Trachea midline, no thyromegaly or masses palpated, and no cervical lymphadenopathy. Supple, full range of motion without nuchal rigidity, or vertebral point tenderness. No Meningismus. Chest/axilla: Normal chest wall appearance and motion. Nontender with no deformity. No lesions are appreciated. Cardiovascular: Regular rate and rhythm with a normal S1 and S2. No gallops, murmurs, or rubs. Normal PMI, no JVD. No pulse deficits. Respiratory: Lungs have equal breath sounds bilaterally, clear to auscultation No rales, rhonchi or wheezes noted. No increased work of breathing, no retractions or nasal flaring. Abdomen/GI: Soft, non-tender, with normal bowel sounds. No distension or tympany. No guarding or rebound. No evidence of tenderness throughout. Neuro: Awake and alert, GCS 15, oriented to person, place, time, and situation. Cranial nerves II-XII grossly intact. Motor strength 5/5 in all extremities. Sensory grossly intact. Cerebellar exam normal. Normal gait. Vital Signs: 22:02 BP 145 / 93; Pulse 67; Resp 18; Temp 98.1(TE); Pulse Ox 98% on R/A; Weight 82.55 kg; lp1 Height 5 ft. 4 in. (162.56 cm); Pain 9/10; 23:42 BP 118 / 77; Pulse 68; Resp 18; Temp 98; Pulse Ox 100% on R/A; Pain 0/10; mg2 22:02 Body Mass Index 31.24 (82.55 kg, 162.56 cm) lp1 MDM: 22:11 Patient medically screened. jr8 23:28 Data reviewed: vital signs, nurses notes. Data interpreted: Pulse oximetry: on room air jr8 is 98 %. Interpretation: normal. Counseling: I had a detailed discussion with the patient and/or guardian regarding: the historical points, exam findings, and any diagnostic results supporting the discharge/admit diagnosis, the need for outpatient follow up, a family practitioner. Response to treatment: the patient's symptoms have mildly improved after treatment. ED course: Pt feels some better after meds, would like to go home and sleep in her own bed, no concerning neurological findings. . 08/14 22:22 Order name: ; Complete Time: 22:27 jr8 Administered Medications: 22:35 Drug: Reglan 10 mg Route: IVP; Site: right hand; mg2 23:42 Follow up: Response: No adverse reaction; Marked relief of symptoms mg2 22:36 Drug: Benadryl 25 mg Route: IVP; Site: right hand; mg2 23:42 Follow up: Response: No adverse reaction; Marked relief of symptoms mg2 Disposition: 08/14/19 23:30 Discharged to Home. Impression: Headache. - Condition is Stable. - Discharge Instructions: General Headache Without Cause, Migraine Headache. - Medication Reconciliation Form, Thank You Letter form. - Follow up: Private Physician; When: 2 - 3 days; Reason: Recheck today's complaints, Re-evaluation by your physician. - Problem is new. - Symptoms have improved. Addendum: 08/16/2019 08:32 Co-signature as Attending Physician, Kevan Vasques MD I agree with the assessment and c cuellar plan of care. Signatures: Kevan Vasques MD MD cha Pena, Laura RN RN lp1 Ramses Cooper PA PA jr8 Ezequiel Thomas RN RN mg2 Corrections: (The following items were deleted from the chart) 08/14 23:43 23:30 08/14/2019 23:30 Discharged to Home. Impression: Headache. Condition is Stable. mg2 Forms are Medication Reconciliation Form, Thank You Letter, Antibiotic Education, Prescription Opioid Use. Follow up: Private Physician; When: 2 - 3 days; Reason: Recheck today's complaints, Re-evaluation by your physician. Problem is new. Symptoms have improved. jr8
[2019-08-15 00:42] VITALS: BP 118/77; TEMP 98; O2SAT 100
== END 2019-08-14 23:43 | disposition home or self-care (01) ==
LOC: ER 21:40
DX: R51 Headache (principal)
CPT/HCPCS: 96375; 96374; 99283; J2765; J1200

== ENCOUNTER 2019-09-22 14:51 | Emergency (ER) | payer MEDICAID ==
[2019-09-22] MEDS ORDERED: LEVALBUTEROL 1.25 MG/3 ML NEB ONE (15:14)
[2019-09-22] MEDS ORDERED: IPRATROPIUM BROM 0.5MG/2.5ML ONE (15:14)
[2019-09-22] MEDS ORDERED: ACETAMINOPHEN 500 MG TAB ONE (15:15)
--- NOTE | 2019-09-22 16:00 | RAD REPORT ---
EXAM DESCRIPTION: RAD - Chest Pa And Lat (2 Views) - 09/22/2019 3:46 pm CLINICAL HISTORY: Cough;Congestion Chest pain. COMPARISON: Chest Single View dated 04/27/2019; Chest Single View dated 10/10/2018; Chest Single View dated 03/28/2018; Chest Single View dated 11/17/2017 FINDINGS: Mild bilateral interstitial pulmonary opacities probably representing interstitial pneumon itis. No focal consolidation typical of pneumonia. The heart is upper limit of normal in size. No dis placed fractures.
[2019-09-22] MEDS ORDERED: IBUPROFEN 400 MG TAB ONE (16:15)
[2019-09-22 16:42] LABS: Absolute Lymphocytes (CBC) 2.3 K/uL (0.7-4.9); Basophils % 1.1 % (0-1.3); Hematocrit 35.1 % (36.0-45.0); Lymphocytes % 34.8 % (15.3-44.8); MPV 9.5 fL (7.6-11.3); RBC Red Blood Cell Count 3.82 M/uL (3.86-4.86)
--- NOTE | 2019-09-22 17:16 | ER ---
Nurse's Notes [facility] Name: Chelsea Cristobal Age: 63 yrs Sex: Female : 1955 Arrival Date: 09/22/2019 Time: 14:53 Bed 20 Private MD: Diagnosis: Pneumonia, unspecified organism-pneumonitis Presentation: 09/22 14:58 Presenting complaint: Patient states: I have been sick for the last five days with la1 cough, congestion. Transition of care: patient was not received from another setting of care. Onset of symptoms was September 22, 2019. Risk Assessment: Do you want to hurt yourself or someone else? Patient reports no desire to harm self or others. Initial Sepsis Screen: Does the patient meet any 2 criteria? No. Patient's initial sepsis screen is negative. Does the patient have a suspected source of infection? No. Patient's initial sepsis screen is negative. Care prior to arrival: None. 14:58 Method Of Arrival: Ambulatory la1 14:58 Acuity: INDIO 3 la1 Historical: - Allergies: 14:59 No Known Allergies; la1 - PMHx: 14:59 Hypertension; la1 - Immunization history:: Adult Immunizations up to date. - Social history:: Smoking status: Patient/guardian denies using tobacco. - Ebola Screening: : No symptoms or risks identified at this time. Screenin:07 Abuse screen: Denies threats or abuse. Denies injuries from another. Nutritional ca1 screening: No deficits noted. Tuberculosis screening: No symptoms or risk factors identified. Fall Risk None identified. Assessment: 15:07 General: Appears in no apparent distress. comfortable, Behavior is calm, cooperative, ca1 appropriate for age, Reports fever for > 3 days, feeling ill for. General: Appears ill. Pain: Complains of pain in face and scalp Pain currently is 8 out of 10 on a pain scale. Neuro: Level of Consciousness is awake, alert, obeys commands, Oriented to person, place, time, situation. Cardiovascular: Heart tones S1 S2 present Capillary refill < 3 seconds Patient's skin is warm and dry. Respiratory: Airway is patent Respiratory effort is even, unlabored, Respiratory pattern is regular, symmetrical, Breath sounds are clear bilaterally. Respiratory: Reports cough that is non-productive, persistent since 4 days ago. GI: Abdomen is round non-distended, Bowel sounds present X 4 quads. Abd is soft and non tender X 4 quads. : No deficits noted. No signs and/or symptoms were reported regarding the genitourinary system. EENT: Reports nasal congestion. Derm: Skin is intact, is healthy with good turgor, Skin is pink, warm \T\ dry. Musculoskeletal: Circulation, motion, and sensation intact. Capillary refill < 3 seconds, Range of motion:. 16:10 Reassessment: Patient appears in no apparent distress at this time. No changes from aj1 previously documented assessment. Patient and/or family updated on plan of care and expected duration. Pain level reassessed. Patient is alert, oriented x 3, equal unlabored respirations, skin warm/dry/pink. 17:10 Reassessment: Patient appears in no apparent distress at this time. No changes from aj1 previously documented assessment. Patient and/or family updated on plan of care and expected duration. Pain level reassessed. Patient is alert, oriented x 3, equal unlabored respirations, skin warm/dry/pink. Vital Signs: 14:59 BP 154 / 103; Pulse 74; Resp 16; Temp 98.7; Pulse Ox 100% on R/A; Weight 83.91 kg; la1 Height 5 ft. 4 in. (162.56 cm); 15:54 BP 161 / 95; Pulse 72; Resp 18; Temp 98.1; Pulse Ox 100% on R/A; mh5 16:53 BP 145 / 79; Pulse 76; Resp 18; Temp 98.2(O); Pulse Ox 98% on R/A; mh5 14:59 Body Mass Index 31.75 (83.91 kg, 162.56 cm) la1 ED Course: 14:53 Patient arrived in ED. mr 14:59 Triage completed. la1 14:59 Arm band placed on left wrist. la1 15:00 [facility]C [facility]. kb 15:00 Narinder Abdullahi MD is Attending Physician. kb 15:03 Minerva Velazquez, JIGNESH is Primary Nurse. ca1 15:07 Patient has correct armband on for positive identification. Bed in low position. Call ca1 light in reach. Side rails up X 1. Pulse ox on. NIBP on. 15:07 Warm blanket given. ca1 15:07 No provider procedures requiring assistance completed. ca1 15:10 Flu Sent. ca1 15:43 Chest Pa And Lat (2 Views) XRAY In Process Unspecified. EDMS 16:33 Inserted saline lock: 24 gauge in right forearm, using aseptic technique. Blood aj1 collected. 16:33 Initial lab(s) drawn, by me, sent to lab. First set of blood cultures drawn. aj1 17:48 IV discontinued, intact, bleeding controlled, No redness/swelling at site. Pressure aj1 dressing applied. Administered Medications: 15:13 Drug: Tylenol 1000 mg Route: PO; ca1 15:15 Drug: Xopenex 1.25 mg Route: Inhalation; ca1 15:15 Drug: AtroVENT Aerosol 0.5 mg Route: Inhalation; ca1 16:20 Drug: Ibuprofen 800 mg Route: PO; aj1 17:49 Follow up: Response: No adverse reaction aj1 17:32 Not Given (Patient Refused): Potassium Effervescent Tablet 50 mEq PO once; dissolve in aj1 4 ounces of water or juice 17:33 Drug: Rocephin 1 grams Route: IV; Rate: calculated rate; Site: right forearm; aj1 17:49 Follow up: IV Status: Completed infusion; IV Intake: 10ml aj1 17:33 Drug: Zithromax 500 mg Route: PO; aj1 17:49 Follow up: Response: No adverse reaction aj1 17:33 Drug: predniSONE 40 mg Route: PO; aj1 17:49 Follow up: Response: No adverse reaction aj1 Intake: 17:49 IV: 10ml; Total: 10ml. aj1 Outcome: 17:15 Discharge ordered by . kb 17:50 Discharged to home ambulatory, with family. aj1 17:50 Condition: good 17:50 Discharge instructions given to patient, Instructed on discharge instructions, follow up and referral plans. medication usage, Demonstrated understanding of instructions, follow-up care, medications. 17:50 Patient left the ED. aj1 Signatures: Dispatcher [employer] EDNM Katie Perez, TRACK REPAIRER-C RIGOBERTO-Khloe Henao, RN RN aj1 Sujey Holland Lee, TRACK REPAIRER-C TRACK REPAIRER-Bryant1 Luly Ricardo [facility] Minerva Velazquez RN RN ca1
--- NOTE | 2019-09-22 17:16 | EDPHYS ---
Physician Documentation [facility] Name: Chelsea Cristobal Age: 63 yrs Sex: Female : 1955 Arrival Date: 09/22/2019 Time: 14:53 Bed 20 Private MD: ED Physician Narinder Abdullahi HPI: 09/22 15:48 This 63 yrs old Black Female presents to ER via Ambulatory with complaints of Fever, kb Cough. 15:48 The patient or guardian reports cough, that is intermittent, described as moderate, kb with no sputum, flu symptoms, myalgias. Onset: The symptoms/episode began/occurred 5 day(s) ago. Severity of symptoms: At their worst the symptoms were moderate, in the emergency department the symptoms are unchanged. Modifying factors: The symptoms are alleviated by nothing, the symptoms are aggravated by nothing. Associated signs and symptoms: Pertinent positives: rhinorrhea, Pertinent negatives: chest pain, diarrhea, ear ache, fever, nausea, sore throat, vomiting. The patient has not experienced similar symptoms in the past. The patient has not recently seen a physician. Pt reports cough, congestion and headache for 5 days. Reports she has felt hot, but not sure if she had fever or not.. Historical: - Allergies: 14:59 No Known Allergies; la1 - PMHx: 14:59 Hypertension; la1 - Immunization history:: Adult Immunizations up to date. - Social history:: Smoking status: Patient/guardian denies using tobacco. - Ebola Screening: : No symptoms or risks identified at this time. ROS: 15:47 Neck: Negative for injury, pain, and swelling, Cardiovascular: Negative for chest pain, kb palpitations, and edema, Abdomen/GI: Negative for abdominal pain, nausea, vomiting, diarrhea, and constipation, Back: Negative for injury and pain, MS/Extremity: Negative for injury and deformity, Skin: Negative for injury, rash, and discoloration. 15:47 Constitutional: Positive for fatigue, malaise. 15:47 ENT: Positive for sinus congestion. 15:47 Respiratory: Positive for cough, with no reported sputum, Negative for dyspnea on exertion, hemoptysis, orthopnea, pleurisy, shortness of breath, sputum production, wheezing. Exam: 15:47 Constitutional: This is a well developed, well nourished patient who is awake, alert, kb and in no acute distress. Head/Face: Normocephalic, atraumatic. ENT: Nares patent. No nasal discharge, no septal abnormalities noted. Tympanic membranes are normal and external auditory canals are clear. Oropharynx with no redness, swelling, or masses, exudates, or evidence of obstruction, uvula midline. Mucous membranes moist. Neck: Trachea midline, no thyromegaly or masses palpated, and no cervical lymphadenopathy. Supple, full range of motion without nuchal rigidity, or vertebral point tenderness. No Meningismus. Chest/axilla: Normal chest wall appearance and motion. Nontender with no deformity. No lesions are appreciated. Cardiovascular: Regular rate and rhythm with a normal S1 and S2. No gallops, murmurs, or rubs. Normal PMI, no JVD. No pulse deficits. Respiratory: Lungs have equal breath sounds bilaterally, clear to auscultation and percussion. No rales, rhonchi or wheezes noted. No increased work of breathing, no retractions or nasal flaring. Abdomen/GI: Soft, non-tender, with normal bowel sounds. No distension or tympany. No guarding or rebound. No evidence of tenderness throughout. Skin: Warm, dry with normal turgor. Normal color with no rashes, no lesions, and no evidence of cellulitis. MS/ Extremity: Pulses equal, no cyanosis. Neurovascular intact. Full, normal range of motion. Neuro: Awake and alert, GCS 15, oriented to person, place, time, and situation. Cranial nerves II-XII grossly intact. Motor strength 5/5 in all extremities. Sensory grossly intact. Cerebellar exam normal. Normal gait. Vital Signs: 14:59 BP 154 / 103; Pulse 74; Resp 16; Temp 98.7; Pulse Ox 100% on R/A; Weight 83.91 kg; la1 Height 5 ft. 4 in. (162.56 cm); 15:54 BP 161 / 95; Pulse 72; Resp 18; Temp 98.1; Pulse Ox 100% on R/A; mh5 16:53 BP 145 / 79; Pulse 76; Resp 18; Temp 98.2(O); Pulse Ox 98% on R/A; mh5 14:59 Body Mass Index 31.75 (83.91 kg, 162.56 cm) la1 MDM: 15:00 Patient medically screened. kb 15:47 Data reviewed: vital signs, nurses notes. Data interpreted: Pulse oximetry: on room air kb is 100 %. Interpretation: normal. 17:14 Counseling: I had a detailed discussion with the patient and/or guardian regarding: the kb historical points, exam findings, and any diagnostic results supporting the discharge/admit diagnosis, lab results, radiology results, the need for outpatient follow up, a family practitioner, to return to the emergency department if symptoms worsen or persist or if there are any questions or concerns that arise at home. 09/22 15:01 Order name: Flu; Complete Time: 15:45 kb 09/22 16:05 Order name: CBC with Diff; Complete Time: 17:13 kb 09/22 15:01 Order name: Chest Pa And Lat (2 Views) XRAY; Complete Time: 16:04 kb 09/22 16:05 Order name: Basic Metabolic Panel; Complete Time: 17:13 kb 09/22 16:05 Order name: Blood Culture Adult (2) kb 09/22 16:05 Order name: IV Start; Complete Time: 17:19 kb Administered Medications: 15:13 Drug: Tylenol 1000 mg Route: PO; ca1 15:15 Drug: Xopenex 1.25 mg Route: Inhalation; ca1 15:15 Drug: AtroVENT Aerosol 0.5 mg Route: Inhalation; ca1 16:20 Drug: Ibuprofen 800 mg Route: PO; aj1 17:49 Follow up: Response: No adverse reaction aj1 17:32 Not Given (Patient Refused): Potassium Effervescent Tablet 50 mEq PO once; dissolve in aj1 4 ounces of water or juice 17:33 Drug: Rocephin 1 grams Route: IV; Rate: calculated rate; Site: right forearm; aj1 17:49 Follow up: IV Status: Completed infusion; IV Intake: 10ml aj1 17:33 Drug: Zithromax 500 mg Route: PO; aj1 17:49 Follow up: Response: No adverse reaction aj1 17:33 Drug: predniSONE 40 mg Route: PO; aj1 17:49 Follow up: Response: No adverse reaction aj1 Disposition: 09/22/19 17:15 Discharged to Home. Impression: Pneumonia, unspecified organism - pneumonitis. - Condition is Stable. - Discharge Instructions: Community-Acquired Pneumonia, Adult, [id number], Pneumonitis. - Prescriptions for Prednisone 20 mg Oral Tablet - take 1 tablet by ORAL route once daily for 5 days; 5 tablet. Zithromax 500 mg Oral Tablet - take 1 tablet by ORAL route once daily for 5 days; 5 tablet. - Medication Reconciliation Form, Thank You Letter, Antibiotic Education, Prescription Opioid Use form. - Follow up: Emergency Department; When: As needed; Reason: Worsening of condition. Follow up: Private Physician; When: 2 - 3 days; Reason: Recheck today's complaints, Continuance of care, Re-evaluation by your physician. Addendum: 09/27/2019 09:57 Co-signature as Attending Physician, Narinder Abdullahi MD I agree with the assessment and k dr plan of care. Signatures: Dispatcher [employer] EDMS Katie Perez, SUHAS FRANKLIN-Ckb Khloe Perry RN RN aj1 Narinder Abdullahi MD MD kdr Mando Bateman FNP-C FNP-Cla1 Minerva Velazquez RN RN ca1 Corrections: (The following items were deleted from the chart) 09/22 17:50 17:15 09/22/2019 17:15 Discharged to Home. Impression: Pneumonia, unspecified organism aj1 - pneumonitis. Condition is Stable. Forms are Medication Reconciliation Form, Thank You Letter, Antibiotic Education, Prescription Opioid Use. Follow up: Emergency Department; When: As needed; Reason: Worsening of condition. Follow up: Private Physician; When: 2 - 3 days; Reason: Recheck today's complaints, Continuance of care, Re-evaluation by your physician. kb
[2019-09-22] MEDS ORDERED: AZITHROMYCIN 250 MG TAB ONE (17:25)
[2019-09-22] MEDS ORDERED: predniSONE 20 MG TAB ONE (17:25)
[2019-09-22] MEDS ORDERED: CEFTRIAXONE/SWI 1gm 1 GM/10 ML SYR ONE (17:25)
[2019-09-22] MEDS ORDERED: POTASSIUM 25 MEQ EFFERV TAB ONE (17:25)
[2019-09-22 18:24] VITALS: BP 145/79; TEMP 98.2; O2SAT 98
== END 2019-09-22 17:50 | disposition home or self-care (01) ==
LOC: ER 14:51
DX: J18.9 Pneumonia, unspecified organism (principal)
CPT/HCPCS: 96365; 87040 ×2; 85025; 80048; 36415; 87804 ×2; 71046; 99284; J7512; J0696

== ENCOUNTER 2020-01-22 22:14 | Emergency (ER) | payer MEDICAID ==
[2020-01-22] MEDS ORDERED: METHYLPREDNISOLONE 125 MG INJ ONE (22:49)
[2020-01-22] MEDS ORDERED: DIPHENHYDRAMINE 25 MG TAB/CAP ONE (22:49)
[2020-01-22] MEDS ORDERED: FAMOTIDINE 20 MG TAB ONE (22:50)
--- NOTE | 2020-01-22 23:09 | ER ---
Nurse's Notes [facility] Name: Chelsea Cristobal Age: 64 yrs Sex: Female : 1955 Arrival Date: 01/22/2020 Time: 22:16 Bed 6 Private MD: Diagnosis: Urticaria, unspecified Presentation: 01/21 22:23 Chief complaint: Patient states: Rashes on arms and back since yesterday. C/O pain and ca1 itchiness on back. Took Benadryl at 1600 and applied Calamine lotion all over but did not help. Coronavirus screen: Patient denies fever greater than 100.4F, cough, shortness of breath, or difficulty breathing. Proceed with normal triage process. Ebola Screen: Patient negative for fever greater than or equal to 101.5 degrees Fahrenheit, and additional compatible Ebola Virus Disease symptoms Patient denies exposure to infectious person. Patient denies travel to an Ebola-affected area in the 21 days before illness onset. No symptoms or risks identified at this time. Initial Sepsis Screen: Does the patient meet any 2 criteria? No. Patient's initial sepsis screen is negative. Does the patient have a suspected source of infection? No. Patient's initial sepsis screen is negative. Risk Assessment: Do you want to hurt yourself or someone else? Patient reports no desire to harm self or others. Onset of symptoms was January 22, 2020. 22:23 Method Of Arrival: Ambulatory ca1 22:23 Acuity: INDIO 4 ca1 Historical: - Allergies: 22:26 No Known Allergies; ca1 - Home Meds: 22:26 lisinopril 20 mg Oral tab 1 tab twice a day [Active]; ca1 - PMHx: 22:26 Hypertension; ca1 - PSHx: 22:26 Hysterectomy; ca1 - Immunization history:: Adult Immunizations up to date, Pneumococcal vaccine is up to date, Flu vaccine is up to date. - Social history:: Smoking status: Patient denies any tobacco usage or history of. Screenin:34 Abuse screen: Denies threats or abuse. Nutritional screening: No deficits noted. Tuberculosis screening: No symptoms or risk factors identified. Fall Risk None identified. Assessment: 22:31 General: Appears uncomfortable, Behavior is restless. Pain: Complains of pain in ah complains of pain in back Pain does not radiate. Neuro: Level of Consciousness is awake, alert, Oriented to person, place, time. Cardiovascular: Denies shortness of breath, Heart tones S1 S2 present Capillary refill < 3 seconds Patient's skin is warm and dry. Respiratory: Airway is patent Respiratory effort is even, unlabored, Respiratory pattern is regular, symmetrical, Breath sounds are clear bilaterally. GI: No signs and/or symptoms were reported involving the gastrointestinal system. Bowel sounds present X 4 quads. Abd is soft and non tender X 4 quads. : No signs and/or symptoms were reported regarding the genitourinary system. EENT: No signs and/or symptoms were reported regarding the EENT system. Derm: Skin is intact, Skin is dry, Skin temperature is warm Rash noted that is sporadic bumps on arms, Pt states that she is itching on arms, legs and back and nothing is helping. Musculoskeletal: No signs and/or symptoms reported regarding the musculoskeletal system. Vital Signs: 22:23 BP 166 / 101; Pulse 86; Resp 17 S; Temp 97.2(TE); Pulse Ox 100% on R/A; Weight 95.25 kg ca1 (R); Height 5 ft. 4 in. (162.56 cm) (R); Pain 9/10; 22:37 BP 137 / 86; Pulse 92; Pulse Ox 100% ; ah 23:05 BP 143 / 79; Pulse 80; Resp 18; Pulse Ox 97% on R/A; ah 22:23 Body Mass Index 36.05 (95.25 kg, 162.56 cm) ca1 ED Course: 22:16 Patient arrived in ED. ag3 22:18 Kevan Gomes PA is PHCP. cp 22:18 Kyle Dempsey MD is Attending Physician. cp 22:25 Triage completed. ca1 22:26 Arm band placed on right wrist. ca1 22:30 Leonie Garcia, RN is Primary Nurse. ah 22:34 Patient has correct armband on for positive identification. Bed in low position. Call light in reach. Side rails up X 1. 23:31 No provider procedures requiring assistance completed. IV discontinued. Administered Medications: 22:51 Drug: Pepcid 20 mg Route: PO; 23:32 Follow up: Response: No adverse reaction 22:51 Drug: SOLU-Medrol 125 mg Route: IM; Site: right gluteus; 23:32 Follow up: Response: No adverse reaction 22:52 Drug: Benadryl 50 mg Route: PO; 23:32 Follow up: Response: No adverse reaction Outcome: 23:08 Discharge ordered by . adrian 23:15 Discharged to home ambulatory. 23:15 Condition: stable 23:15 Discharge instructions given to patient, Instructed on discharge instructions, follow up and referral plans. medication usage, Demonstrated understanding of instructions, follow-up care, medications, Prescriptions given X 4. 23:33 Patient left the ED. Signatures: Kevan Gomes PA PA cp Gomez, Alice ag3 Minerva Velazquez, RN RN [facility] Leonie Garcia RN RN
--- NOTE | 2020-01-22 23:09 | EDPHYS ---
Physician Documentation [facility] Name: Chelsea Cristobal Age: 64 yrs Sex: Female : 1955 Arrival Date: 01/22/2020 Time: 22:16 Bed 6 Private MD: ED Physician Kyle Dempsey HPI: 01/21 22:40 This 64 yrs old Black Female presents to ER via Ambulatory with complaints of Rash. cp 22:40 The patient's rash thought to be caused by an unknown cause. The rash is located on the cp body diffusely. The rash can be described as papular. Onset: The symptoms/episode began/occurred 2 day(s) ago. Associated signs and symptoms: Pertinent positives: itching, Pain Pertinent negatives: difficulty breathing, fever, swelling of lips, swelling of throat, swelling of tongue, wheezing. Severity of symptoms: in the emergency department the symptoms are unchanged despite home interventions. 22:40 Treatment given at home: Benadryl, OTC lotion/cream skin alcohol and hydrogen peroxide. cp Historical: - Allergies: 22:26 No Known Allergies; ca1 - Home Meds: 22:26 lisinopril 20 mg Oral tab 1 tab twice a day [Active]; ca1 - PMHx: 22:26 Hypertension; ca1 - PSHx: 22:26 Hysterectomy; ca1 - Immunization history:: Adult Immunizations up to date, Pneumococcal vaccine is up to date, Flu vaccine is up to date. - Social history:: Smoking status: Patient denies any tobacco usage or history of. ROS: 22:43 Constitutional: Negative for body aches, chills, fever, poor PO intake. cp 22:43 ENT: Negative for drainage from ear(s), ear pain, sore throat, difficulty swallowing, difficulty handling secretions. 22:43 Cardiovascular: Negative for chest pain, edema, palpitations. 22:43 Respiratory: Negative for cough, shortness of breath, wheezing. 22:43 Abdomen/GI: Negative for abdominal pain, nausea, vomiting, and diarrhea. 22:43 Skin: Positive for rash. 22:43 Neuro: Negative for altered mental status, headache, weakness. 22:43 All other systems are negative. Exam: 22:50 Constitutional: The patient appears in no acute distress, alert, awake, cp non-diaphoretic, non-toxic, well developed, well nourished, uncomfortable. 22:50 Head/Face: Normocephalic, atraumatic. cp 22:50 Eyes: Periorbital structures: appear normal, Conjunctiva: normal, no exudate, no injection, Lids and lashes: appear normal, bilaterally. 22:50 ENT: External ear(s): are unremarkable, Nose: is normal. 22:50 Cardiovascular: Rate: normal, Rhythm: regular. 22:50 Respiratory: the patient does not display signs of respiratory distress, Respirations: normal, no use of accessory muscles, no retractions, labored breathing, is not present. 22:50 Skin: cellulitis, is not appreciated, rash can be described as erythematous, papular, urticarial, and is diffusely located. Vital Signs: 22:23 BP 166 / 101; Pulse 86; Resp 17 S; Temp 97.2(TE); Pulse Ox 100% on R/A; Weight 95.25 kg ca1 (R); Height 5 ft. 4 in. (162.56 cm) (R); Pain 9/10; 22:37 BP 137 / 86; Pulse 92; Pulse Ox 100% ; ah 23:05 BP 143 / 79; Pulse 80; Resp 18; Pulse Ox 97% on R/A; ah 22:23 Body Mass Index 36.05 (95.25 kg, 162.56 cm) ca1 MDM: 22:24 Patient medically screened. cp 22:40 Differential diagnosis: impetigo, allergic reaction, cellulitis, shingles. cp 23:07 Data reviewed: vital signs, nurses notes, and as a result, I will discharge patient. cp 23:07 Counseling: I had a detailed discussion with the patient and/or guardian regarding: the cp historical points, exam findings, and any diagnostic results supporting the discharge/admit diagnosis, to return to the emergency department if symptoms worsen or persist or if there are any questions or concerns that arise at home. Response to treatment: the patient's symptoms have markedly improved after treatment, and as a result, I will discharge patient. Administered Medications: 22:51 Drug: Pepcid 20 mg Route: PO; ah 23:32 Follow up: Response: No adverse reaction 22:51 Drug: SOLU-Medrol 125 mg Route: IM; Site: right gluteus; ah 23:32 Follow up: Response: No adverse reaction 22:52 Drug: Benadryl 50 mg Route: PO; 23:32 Follow up: Response: No adverse reaction Disposition: 23:35 Chart complete. cp 23:45 Co-signature as Attending Physician, Kyle Dempsey MD. rn Disposition: 01/22/20 23:08 Discharged to Home. Impression: Urticaria, unspecified. - Condition is Stable. - Discharge Instructions: Hives. - Prescriptions for Vistaril 25 mg Oral capsule - take 1 capsule by ORAL route as directed As needed May take 1-2 capsules as needed every 6 hours for itching; 30 capsule. Pepcid 20 mg Oral Tablet - take 1 tablet by ORAL route every 12 hours for 5 days; 10 tablet. Triamcinolone Acetonide 0.5 % Topical Cream - apply 1 application by TOPICAL route 2 times per day As needed may apply to areas of rash as directed except face; 1 tube. Prednisone 20 mg Oral Tablet - take 2 tablet by ORAL route once daily for 5 days; 10 tablet. - Medication Reconciliation Form, Thank You Letter, Antibiotic Education, Prescription Opioid Use form. - Follow up: Private Physician; When: 2 - 3 days; Reason: Worsening of condition. - Problem is new. - Symptoms have improved. - Notes: Take cool water showers, moisturize skin with oil based moisturizer 2-3 times throughout day and avoid change in soaps and detergents Signatures: Kyle Dempsey MD MD rn Page, Corey, PA PA cp Acob, Cheryl, RN RN [facility] Leonie Garcia RN RN Corrections: (The following items were deleted from the chart) 22:43 22:40 Treatment given at home: Benadryl, OTC skin alcohol and peroxide. cp cp 23:33 23:08 01/22/2020 23:08 Discharged to Home. Impression: Urticaria, unspecified. Condition is Stable. Forms are Medication Reconciliation Form, Thank You Letter, Antibiotic Education, Prescription Opioid Use. Follow up: Private Physician; When: 2 - 3 days; Reason: Worsening of condition. Problem is new. Symptoms have improved. cp
[2020-01-22 23:42] VITALS: TEMP 97.2
[2020-01-22 23:45] VITALS: BP 143/79; O2SAT 97
== END 2020-01-22 23:33 | disposition home or self-care (01) ==
LOC: ER 22:14
DX: L50.9 Urticaria, unspecified (principal); I10 Essential (primary) hypertension
CPT/HCPCS: 96372; 99283; J2930

== ENCOUNTER 2020-11-18 22:40 | Emergency (ER) | payer MEDICAID ==
[2020-11-19] MEDS ORDERED: DIPHENHYDRAMINE 50 MG/ML VIAL ONE (00:37)
[2020-11-19] MEDS ORDERED: METOCLOPRAMIDE 10 MG/2mL INJ ONE (00:37)
[2020-11-19] MEDS ORDERED: NA CHLORIDE 0.9% 1,000 ML ONE (00:38)
[2020-11-19 00:47] LABS: Absolute Lymphocytes (CBC) 1.9 K/uL (0.7-4.9); Hematocrit 36.7 % (36.0-45.0); Lymphocytes % 38.6 % (15.3-44.8); MPV 8.5 fL (7.6-11.3); RBC Red Blood Cell Count 4.03 M/uL (3.86-4.86)
[2020-11-19 00:52] LABS: Protime INR 0.99
[2020-11-19 01:05] LABS: ALT/SGPT 16 U/L (12-78); AST/SGOT 14 U/L (15-37); Albumin 3.9 g/dL (3.4-5.0); Alkaline Phosphatase 89 U/L (45-117); BUN Blood Urea Nitrogen 7 mg/dL (7-18); Bicarbonate 31 mmol/L (21-32); Bilirubin Direct < 0.1 mg/dL (0-0.2); Bilirubin Total 0.4 mg/dL (0.2-1.0); Glucose Level 86 mg/dL (74-106); Potassium 3.9 mmol/L (3.5-5.1); Protein, Total 8.1 g/dL (6.4-8.2); Sodium Level 140 mmol/L (136-145)
--- NOTE | 2020-11-19 03:16 | ER ---
Nurse's Notes [facility] Name: Chelsea Cristobal Age: 65 yrs Sex: Female : 1955 Arrival Date: 11/18/2020 Time: 22:44 Bed 8 Private MD: Diagnosis: Headache Presentation: 11/18 23:00 Chief complaint: Patient states: "I've got a pounding migraine"; reports beginning at lp1 1700 today, pain to right temporal area; reports nausea, light sensitivity; Denies any visual disturbances. Coronavirus screen: headache. Ebola Screen: No symptoms or risks identified at this time. Risk Assessment: Do you want to hurt yourself or someone else? Patient reports no desire to harm self or others. Onset of symptoms was November 18, 2020 at 17:00. 23:00 Method Of Arrival: Ambulatory lp1 23:00 Acuity: INDIO 3 lp1 23:03 Initial Sepsis Screen: Does the patient meet any 2 criteria? No. Patient's initial lp1 sepsis screen is negative. Does the patient have a suspected source of infection? No. Patient's initial sepsis screen is negative. 23:05 Note Reports no relief with Aleve OTC. lp1 Triage Assessment: 23:06 Headache History: The patient has had previous headaches and this one is more severe lp1 than previous episodes. 11/19 03:19 Pain: Also complains of no other associated symptoms. rv Historical: - Allergies: 11/18 23:03 Compazine; lp1 - Home Meds: 23:03 None [Active]; lp1 - PMHx: 23:03 Hypertension; lp1 - PSHx: 23:03 Hysterectomy; Appendectomy; lp1 - Immunization history:: Adult Immunizations up to date. - Social history:: Smoking status: Patient denies any tobacco usage or history of. Screenin:05 Abuse screen: Denies threats or abuse. Denies injuries from another. Nutritional lp1 screening: No deficits noted. Tuberculosis screening: No symptoms or risk factors identified. Fall Risk None identified. Assessment: 11/19 00:30 General: Appears in no apparent distress. Behavior is calm, cooperative, appropriate fu for age, Denies fever, feeling ill, fatigue, chills. Pain: Complains of pain in headache Pain does not radiate. Pain currently is 5 out of 10 on a pain scale. Quality of pain is described as aching, Pain began around 1700 Is continuous. Neuro: Level of Consciousness is awake, alert, obeys commands, Oriented to person, place, time, situation, Attendant Child Activity are equal bilaterally Moves all extremities. Gait is steady, Speech is normal, Facial symmetry appears normal. Cardiovascular: Denies chest pain, shortness of breath, vomiting. Respiratory: Respiratory effort is even, unlabored, Respiratory pattern is regular. GI: Reports nausea, Patient currently denies vomiting. : No signs and/or symptoms were reported regarding the genitourinary system. EENT: No signs and/or symptoms were reported regarding the EENT system. Derm: No signs and/or symptoms reported regarding the dermatologic system. Musculoskeletal: No signs and/or symptoms reported regarding the musculoskeletal system. 01:08 Reassessment: Patient and/or family updated on plan of care and expected duration. Pain fu level reassessed. Patient is alert, oriented x 3, equal unlabored respirations, skin warm/dry/pink. 02:55 Reassessment: Patient and/or family updated on plan of care and expected duration. Pain ea level reassessed. Pt resting with eyes closed, respirations even and unlabored, chest expansions even and symmetrical. No s/s of pain or discomfort noted at this time. 03:30 Reassessment: Patient and/or family updated on plan of care and expected duration. Pain ea level reassessed. Patient is alert, oriented x 3, equal unlabored respirations, skin warm/dry/pink. Discharge instruction given to patient, verbalized the understanding of instruction. Pt left ED via wheelchair, pt assisted to private vehicle per , pt tolerating well. Vital Signs: 11/18 23:03 BP 136 / 94; Pulse 90; Resp 18; Temp 97.4(TE); Pulse Ox 100% on R/A; Weight 82.55 kg lp1 (R); Height 5 ft. 4 in. (162.56 cm); Pain 9/10; 11/19 00:15 BP 137 / 90; Pulse 74; Resp 18; Temp 98.4(O); Pulse Ox 100% on R/A; Pain 5/10; fu 02:00 BP 142 / 90; Pulse 77; Resp 17; Pulse Ox 100% on R/A; rv 03:00 BP 131 / 88; Pulse 76; Resp 16; Temp 98; Pulse Ox 99% on R/A; rv 11/18 23:03 Body Mass Index 31.24 (82.55 kg, 162.56 cm) lp1 Brea Coma Score: 03:12 Eye Response: spontaneous(4). Verbal Response: oriented(5). Motor Response: obeys [facility] commands(6). Total: 15. ED Course: 11/18 22:44 Patient arrived in ED. am2 23:02 Triage completed. lp1 23:02 Arm band placed on. lp1 23:55 Odilon Sharp MD is Attending Physician. mh7 11/19 00:15 Mike Whipple, JIGNESH is Primary Nurse. fu 00:30 Initial lab(s) drawn, by me, sent to lab. Inserted saline lock: 22 gauge in left fu forearm, using aseptic technique. Blood collected. 00:39 Patient has correct armband on for positive identification. Bed in low position. Call ea light in reach. 00:42 CBC with Diff Sent. fu 00:42 Basic Metabolic Panel Sent. fu 00:42 Ptt, Activated Sent. fu 00:42 Protime (+inr) Sent. fu 00:42 LFT's Sent. fu 00:43 Westergren Sedrate Sent. fu 00:47 Pulse ox on. NIBP on. fu 01:11 CT Head Brain wo Cont In Process Unspecified. EDMS 03:14 Lester Jaquez MD is Referral Physician. 7 03:18 No provider procedures requiring assistance completed. IV discontinued, intact, rv bleeding controlled, No redness/swelling at site. Pressure dressing applied. Administered Medications: 00:35 Drug: NS 0.9% 1000 ml Route: IV; Rate: 1000 ml; Site: left forearm; fu 03:19 Follow up: IV Status: Completed infusion; IV Intake: 1000ml rv 00:35 Drug: Reglan 10 mg Route: IVP; Site: left forearm; fu 03:18 Follow up: Response: No adverse reaction rv 00:35 Drug: Benadryl 50 mg Route: IVP; Site: left forearm; fu 03:18 Follow up: Response: No adverse reaction rv Intake: 03:19 IV: 1000ml; Total: 1000ml. rv Outcome: 03:15 Discharge ordered by . mh7 03:19 Discharged to home ambulatory. rv 03:19 Condition: good 03:19 Discharge instructions given to patient, Instructed on discharge instructions, follow up and referral plans. medication usage, Demonstrated understanding of instructions, follow-up care, medications, Prescriptions given X 1. 03:33 Patient left the ED. yonis Signatures: Dispatcher [employer] EDMS Carmen Ballesteros RN RN lp1 Amanda Be Elena, RN RN ea Umadhay, Felix, RN RN fu Vicente, Ronaldo, RN RN rv Holmes, Maurice, MD MD 7
--- NOTE | 2020-11-19 03:16 | EDPHYS ---
Physician Documentation [facility] Name: Chelsea Cristobal Age: 65 yrs Sex: Female : 1955 Arrival Date: 11/18/2020 Time: 22:44 Bed 8 Private MD: ED Physician Odilon Sharp HPI: 11/19 00:12 This 65 yrs old Black Female presents to ER via Ambulatory with complaints of Headache. mh7 00:12 The patient complains of pain to the right alevism. The patient describes the headache mh7 as intermittent, throbbing, waxing and waning. Onset: The symptoms/episode began/occurred today, at 17:00. Associated signs and symptoms: Pertinent positives: nausea, Photophobia Pertinent negatives: altered mental status, dizziness, fever, malaise, neck stiffness, paresthesias, rash, sinus congestion, sinus tenderness, vision changes, vision loss, vomiting, weakness, vertigo. Severity of symptoms: At its worst the pain was moderate, earlier today, in the emergency department the pain is unchanged. Headache History: The patient has had previous headaches and this one is similar to previous episodes. The symptoms are alleviated by nothing. the symptoms are aggravated by lights, noise. The patient has experienced similar episodes in the past, multiple times. Historical: - Allergies: 11/18 23:03 Compazine; lp1 - Home Meds: 23:03 None [Active]; lp1 - PMHx: 23:03 Hypertension; lp1 - PSHx: 23:03 Hysterectomy; Appendectomy; lp1 - Immunization history:: Adult Immunizations up to date. - Social history:: Smoking status: Patient denies any tobacco usage or history of. ROS: 11/19 00:12 Constitutional: Negative for fever, chills, and weight loss, Eyes: Negative for injury, mh7 pain, redness, and discharge, ENT: Negative for injury, pain, and discharge, Neck: Negative for injury, pain, and swelling, Cardiovascular: Negative for chest pain, palpitations, and edema, Respiratory: Negative for shortness of breath, cough, wheezing, and pleuritic chest pain. Back: Negative for injury and pain, : Negative for injury, bleeding, discharge, and swelling, MS/Extremity: Negative for injury and deformity, Skin: Negative for injury, rash, and discoloration, Psych: Negative for depression, anxiety, suicide ideation, homicidal ideation, and hallucinations, Allergy/Immunology: Negative for hives, rash, and allergies, Endocrine: Negative for neck swelling, polydipsia, polyuria, polyphagia, and marked weight changes, Hematologic/Lymphatic: Negative for swollen nodes, abnormal bleeding, and unusual bruising. Abdomen/GI: Negative for abdominal pain, vomiting, diarrhea, constipation, dysphagia, hematemesis, black/tarry stool, rectal pain, rectal bleeding, bowel incontinence, flatulence. Exam: 00:12 Constitutional: This is a well developed, well nourished patient who is awake, alert, mh7 and in no acute distress. Head/Face: Normocephalic, atraumatic. Eyes: Pupils equal round and reactive to light, extra-ocular motions intact. Lids and lashes normal. Conjunctiva and sclera are non-icteric and not injected. Cornea within normal limits. Periorbital areas with no swelling, redness, or edema. Neck: Trachea midline, no thyromegaly or masses palpated, and no cervical lymphadenopathy. Supple, full range of motion without nuchal rigidity, or vertebral point tenderness. No Meningismus. Chest/axilla: Normal chest wall appearance and motion. Nontender with no deformity. No lesions are appreciated. Cardiovascular: Regular rate and rhythm with a normal S1 and S2. No gallops, murmurs, or rubs. Normal PMI, no JVD. No pulse deficits. Respiratory: Lungs have equal breath sounds bilaterally, clear to auscultation and percussion. No rales, rhonchi or wheezes noted. No increased work of breathing, no retractions or nasal flaring. Abdomen/GI: Soft, non-tender, with normal bowel sounds. No distension or tympany. No guarding or rebound. No evidence of tenderness throughout. Back: No spinal tenderness. No costovertebral tenderness. Full range of motion. Skin: Warm, dry with normal turgor. Normal color with no rashes, no lesions, and no evidence of cellulitis. MS/ Extremity: Pulses equal, no cyanosis. Neurovascular intact. Full, normal range of motion. Neuro: Awake and alert, GCS 15, oriented to person, place, time, and situation. Cranial nerves II-XII grossly intact. Motor strength 5/5 in all extremities. Sensory grossly intact. Cerebellar exam normal. Normal gait. Psych: Awake, alert, with orientation to person, place and time. Behavior, mood, and affect are within normal limits. Vital Signs: 11/18 23:03 BP 136 / 94; Pulse 90; Resp 18; Temp 97.4(TE); Pulse Ox 100% on R/A; Weight 82.55 kg lp1 (R); Height 5 ft. 4 in. (162.56 cm); Pain 9/10; 11/19 00:15 BP 137 / 90; Pulse 74; Resp 18; Temp 98.4(O); Pulse Ox 100% on R/A; Pain 5/10; fu 02:00 BP 142 / 90; Pulse 77; Resp 17; Pulse Ox 100% on R/A; rv 03:00 BP 131 / 88; Pulse 76; Resp 16; Temp 98; Pulse Ox 99% on R/A; rv 11/18 23:03 Body Mass Index 31.24 (82.55 kg, 162.56 cm) lp1 Treva Coma Score: 03:12 Eye Response: spontaneous(4). Verbal Response: oriented(5). Motor Response: obeys mh7 commands(6). Total: 15. MDM: 03:12 Differential diagnosis: cluster headache, intracerebral hemorrhage, migraine, temporal mh7 arteritis, tension headache. Data reviewed: vital signs, nurses notes, lab test result(s), CBC, electrolytes, urinalysis, radiologic studies, CT scan. Data interpreted: Pulse oximetry: on room air is 100 %. Interpretation: normal. Counseling: I had a detailed discussion with the patient and/or guardian regarding: the historical points, exam findings, and any diagnostic results supporting the discharge/admit diagnosis, the presence of at least one elevated blood pressure reading (>120/80) during this emergency department visit, lab results, radiology results, to return to the emergency department if symptoms worsen or persist or if there are any questions or concerns that arise at home. Response to treatment: the patient's symptoms have resolved after treatment, the patient's blood pressure is in an acceptable range, mental status has returned to baseline, the patient no longer shows bradycardia, the patient is not short of breath, the patient is not tachycardic, the patient's pain is gone, the patient's temperature has normalized. Refusal of service: The patient/guardian displays adequate decision making capability and despite a detailed discussion of alternatives, benefits, risks, and consequences refuses: Lumbar Puncture procedure. 03:15 Patient medically screened. [facility] 11/19 00:11 Order name: CBC with Diff; Complete Time: [facility] 11/19 00:11 Order name: Basic Metabolic Panel; Complete Time: [facility] 11/19 00:11 Order name: Protime (+inr); Complete Time: [facility] 11/19 00:11 Order name: Ptt, Activated; Complete Time: [facility] 11/19 00:11 Order name: LFT's; Complete Time: [facility] 11/19 00:11 Order name: Westergren Sedrate; Complete Time: [facility] 11/19 00:11 Order name: CT Head Brain wo Cont [facility] Administered Medications: 00:35 Drug: NS 0.9% 1000 ml Route: IV; Rate: 1000 ml; Site: left forearm; fu 03:19 Follow up: IV Status: Completed infusion; IV Intake: 1000ml rv 00:35 Drug: Reglan 10 mg Route: IVP; Site: left forearm; fu 03:18 Follow up: Response: No adverse reaction rv 00:35 Drug: Benadryl 50 mg Route: IVP; Site: left forearm; fu 03:18 Follow up: Response: No adverse reaction rv Disposition: 11/19/20 03:15 Discharged to Home. Impression: Headache. - Condition is Stable. - Discharge Instructions: General Headache Without Cause. - Prescriptions for Fioricet 50- 325-40 mg Oral tablet - take 1 tablet by ORAL route every 4 hours As needed as needed not to exceed 6 tablets per 24hrs; 15 tablet. - Medication Reconciliation Form, Thank You Letter, Antibiotic Education, Prescription Opioid Use form. - Follow up: Private Physician; When: 1 - 2 days; Reason: Worsening of condition, Recheck today's complaints, Continuance of care, Re-evaluation by your physician. Follow up: Lester Jaquez MD; When: 1 - 2 days; Reason: Worsening of condition, Recheck today's complaints. - Problem is an acute exacerbation. - Symptoms have improved. Signatures: Dispatcher [employer] EDMS Carmen Ballesteros RN RN lp1 Janice Hodge RN Mike Finn ea, RN Odilon Marie MD MD 7 Andrey Turk RN rv Corrections: (The following items were deleted from the chart) 03:33 03:15 11/19/2020 03:15 Discharged to Home. Impression: Headache. Condition is Stable. ea Forms are Medication Reconciliation Form, Thank You Letter, Antibiotic Education, Prescription Opioid Use. Follow up: Private Physician; When: 1 - 2 days; Reason: Worsening of condition, Recheck today's complaints, Continuance of care, Re-evaluation by your physician. Follow up: Lester Jaquez; When: 1 - 2 days; Reason: Worsening of condition, Recheck today's complaints. Problem is an acute exacerbation. Symptoms have improved. mh7
[2020-11-19 03:45] VITALS: BP 131/88; TEMP 98; O2SAT 99
--- NOTE | 2020-11-20 14:56 | RAD REPORT ---
EXAM DESCRIPTION: CT - Head Brain Wo Cont - 11/19/2020 1:52 am CLINICAL HISTORY: HEADACHE COMPARISON: 03/27/2019 TECHNIQUE: Axial CT of the head obtained from the skull apex to the skull base without contrast. FINDINGS: No acute intracranial hemorrhage identified. No mass, mass effect, shift of the midline, a bnormal extra-axial fluid collection or CT evidence of acute ischemic change identified. The ventricu lar system and sulcal spaces are nonenlarged. Scattered areas of hypodensity throughout the suprate ntorial white matter are nonspecific and may be related to chronic small vessel ischemic change. The visualized paranasal sinuses and mastoid air cells are well aerated. No skull fracture identifi ed. Visualized orbits and globes are unremarkable. Atherosclerotic calcification of the intracranial internal carotid arteries. IMPRESSION: 1. No acute intracranial abnormality by CT criteria. This exam was performed according to our departmental dose-optimization program, which includes autom ated exposure control, adjustment of the mA and/or kV according to patient size and/or use of iterati ve reconstruction technique. Electronically signed by: Rayo Webster 11/19/2020 1:39 AM [employer]INEER Due to temporary technical issues with the PACS/Fluency reporting system, reports are being signed by the in house radiologists without review as a courtesy to insure prompt reporting. The interpreting radiologist is fully responsible for the content of the report.
== END 2020-11-19 03:33 | disposition home or self-care (01) ==
LOC: ER 22:40
DX: R51.9 Headache, unspecified (principal); I10 Essential (primary) hypertension; Z88.1 Allergy status to other antibiotic agents
CPT/HCPCS: 85025; 80048; 36415; 85610; 80076; 85730; 85652; 70450; J2765; J1200; J7030; 96361; 96374; 96375; 99284

== ENCOUNTER 2020-11-25 02:51 | Emergency (ER) | payer MEDICAID ==
[2020-11-25] MEDS ORDERED: IBUPROFEN 400 MG TAB ONE (03:37)
--- NOTE | 2020-11-25 03:37 | EDPHYS ---
Physician Documentation [facility] Name: Chelsea Cristobal Age: 65 yrs Sex: Female : 1955 Arrival Date: 11/25/2020 Time: 02:51 Bed 8 Private MD: ED Physician Kevan Vasques HPI: 11/25 03:12 This 65 yrs old Black Female presents to ER via Ambulatory with complaints of Arm Pain. sung 03:12 The patient or guardian complains of decreased range of motion, pain. The complaints sung affect the right bicep. Context: The problem was sustained at an unknown location. Onset: The symptoms/episode began/occurred 2 day(s) ago. Treatment prior to arrival includes: no previous treatment. Modifying factors: The symptoms are alleviated by remaining still, the symptoms are aggravated by movement, lifting weight. Associated signs and symptoms: The patient has no apparent associated signs or symptoms. Severity of symptoms: At their worst the symptoms were mild, moderate, in the emergency department the symptoms are unchanged. The patient has not experienced similar symptoms in the past. Historical: - Allergies: 03:03 Compazine; dm5 - Home Meds: 03:03 Lisinopril Oral [Active]; dm5 - PMHx: 03:03 Hypertension; dm5 - PSHx: 03:03 Hysterectomy; dm5 - Family history:: not pertinent. ROS: 03:12 Constitutional: Negative for fever, chills, and weight loss, Eyes: Negative for injury, sung pain, redness, and discharge, ENT: Negative for injury, pain, and discharge, Neck: Negative for injury, pain, and swelling, Cardiovascular: Negative for chest pain, palpitations, and edema, Respiratory: Negative for shortness of breath, cough, wheezing, and pleuritic chest pain, Abdomen/GI: Negative for abdominal pain, nausea, vomiting, diarrhea, and constipation, Back: Negative for injury and pain, : Negative for injury, bleeding, discharge, and swelling, Skin: Negative for injury, rash, and discoloration, Neuro: Negative for headache, weakness, numbness, tingling, and seizure, Psych: Negative for depression, anxiety, suicide ideation, homicidal ideation, and hallucinations, Allergy/Immunology: Negative for hives, rash, and allergies, Endocrine: Negative for neck swelling, polydipsia, polyuria, polyphagia, and marked weight changes, Hematologic/Lymphatic: Negative for swollen nodes, abnormal bleeding, and unusual bruising. 03:12 MS/extremity: Positive for decreased range of motion, pain, of the right bicep and right tricep. Exam: 03:12 Constitutional: This is a well developed, well nourished patient who is awake, alert, sung and in no acute distress. Head/Face: Normocephalic, atraumatic. Eyes: Pupils equal round and reactive to light, extra-ocular motions intact. Lids and lashes normal. Conjunctiva and sclera are non-icteric and not injected. Cornea within normal limits. Periorbital areas with no swelling, redness, or edema. ENT: Nares patent. No nasal discharge, no septal abnormalities noted. Tympanic membranes are normal and external auditory canals are clear. Oropharynx with no redness, swelling, or masses, exudates, or evidence of obstruction, uvula midline. Mucous membranes moist. Neck: Trachea midline, no thyromegaly or masses palpated, and no cervical lymphadenopathy. Supple, full range of motion without nuchal rigidity, or vertebral point tenderness. No Meningismus. Chest/axilla: Normal chest wall appearance and motion. Nontender with no deformity. No lesions are appreciated. Cardiovascular: Regular rate and rhythm with a normal S1 and S2. No gallops, murmurs, or rubs. Normal PMI, no JVD. No pulse deficits. Respiratory: Lungs have equal breath sounds bilaterally, clear to auscultation and percussion. No rales, rhonchi or wheezes noted. No increased work of breathing, no retractions or nasal flaring. Abdomen/GI: Soft, non-tender, with normal bowel sounds. No distension or tympany. No guarding or rebound. No evidence of tenderness throughout. Back: No spinal tenderness. No costovertebral tenderness. Full range of motion. Skin: Warm, dry with normal turgor. Normal color with no rashes, no lesions, and no evidence of cellulitis. Neuro: Awake and alert, GCS 15, oriented to person, place, time, and situation. Cranial nerves II-XII grossly intact. Motor strength 5/5 in all extremities. Sensory grossly intact. Cerebellar exam normal. Normal gait. Psych: Awake, alert, with orientation to person, place and time. Behavior, mood, and affect are within normal limits. 03:12 Musculoskeletal/extremity: Extremities: grossly normal except: noted in the right bicep and right tricep: decreased ROM, pain, DVT Exam: negative Homans' sign noted on exam, no appreciated bluish discoloration, no erythema, no increased warmth, pain, swelling, tenderness. 03:32 ECG was reviewed by the Attending Physician. [facility] Vital Signs: 03:01 Weight 89.36 kg; Height 5 ft. 4 in. (162.56 cm); Pain 10/10; dm5 03:13 BP 145 / 91; Pulse 91; Resp 18; Temp 98.3(O); Pulse Ox 100% on R/A; oe 04:00 BP 134 / 76; Pulse 93; Resp 16; Pulse Ox 100% on R/A; jb4 04:34 BP 138 / 87; Pulse 81; Resp 18; Pulse Ox 100% on R/A; oe 03:01 Body Mass Index 33.81 (89.36 kg, 162.56 cm) dm5 MDM: 02:58 Patient medically screened. [facility] 03:15 Differential diagnosis: closed fracture, contusion, tendonitis. Data reviewed: vital [facility] signs, nurses notes, radiologic studies, plain films. Data interpreted: bus driver/monitor: rate is 91 beats/min, rhythm is regular, Pulse oximetry: on room air is 100 %. Test interpretation: by ED physician or midlevel provider: ECG, plain radiologic studies. Counseling: I had a detailed discussion with the patient and/or guardian regarding: the historical points, exam findings, and any diagnostic results supporting the discharge/admit diagnosis, lab results, radiology results, the need for outpatient follow up, for definitive care, a family practitioner. 11/25 03:12 Order name: Humerus Right XRAY [facility] 11/25 03:16 Order name: EKG; Complete Time: 03:17 [facility] 11/25 03:16 Order name: EKG - Nurse/Tech; Complete Time: 03:36 [facility] 11/25 03:18 Order name: Sling; Complete Time: 04:37 [facility] EC:32 Rate is 84 beats/min. Rhythm is regular. QRS [place] is Normal. AR interval is normal. QRS sung interval is normal. QT interval is normal. No Q waves. T waves are Normal. No ST changes noted. Clinical impression: NSR w/ Non-specific ST/T Changes and LVH. Interpreted by me. Reviewed by me. Administered Medications: 03:25 Drug: [place] 10 mg-325 mg 1 tabs Route: PO; jb4 04:30 Follow up: Response: No adverse reaction; Pain is decreased; RASS: Alert and Calm (0) 4 03:25 Drug: Motrin 400 mg Route: PO; jb4 04:30 Follow up: Response: No adverse reaction; Pain is decreased jb4 Disposition: 11/25/20 03:37 Discharged to Home. Impression: Pain in right arm. - Condition is Stable. - Discharge Instructions: Musculoskeletal Pain, Cryotherapy, [id number], Cryotherapy. - Prescriptions for Ibuprofen 600 mg Oral Tablet - take 1 tablet by ORAL route every 8 hours As needed take with food; 15 tablet. Tylenol- Codeine #3 300-30 mg Oral Tablet - take 1 tablet by ORAL route every 4 hours As needed; 20 tablet. - Medication Reconciliation Form, Thank You Letter, Antibiotic Education, Prescription Opioid Use form. - Follow up: Private Physician; When: 2 - 3 days; Reason: Recheck today's complaints, Continuance of care, Re-evaluation by your physician. Follow up: Dr. Amado Merino; When: 2 - 3 days; Reason: Recheck today's complaints, Re-evaluation by your physician. - Problem is new. - Symptoms have improved. Signatures: Dispatcher [employer] EDOdessa Arroyo RN RN Kevan Penny MD MD cha Bryson, James RN RN jb4 Corrections: (The following items were deleted from the chart) 03:03 03:03 PSHx: None; roxane betts 04:46 03:37 11/25/2020 03:37 Discharged to Home. Impression: Pain in right arm. Condition is jb4 Stable. Discharge Instructions: Musculoskeletal Pain, Cryotherapy, [id number], Cryotherapy. Prescriptions for Ibuprofen 600 mg Oral Tablet - take 1 tablet by ORAL route every 8 hours As needed take with food; 15 tablet, Tylenol-Codeine #3 300-30 mg Oral Tablet - take 1 tablet by ORAL route every 4 hours As needed; 20 tablet. and Forms are Medication Reconciliation Form, Thank You Letter, Antibiotic Education, Prescription Opioid Use. Follow up: Private Physician; When: 2 - 3 days; Reason: Recheck today's complaints, Continuance of care, Re-evaluation by your physician. Follow up: Dr. Amado Merino; When: 2 - 3 days; Reason: Recheck today's complaints, Re-evaluation by your physician. Problem is new. Symptoms have improved. sung
--- NOTE | 2020-11-25 03:37 | ER ---
Nurse's Notes [facility] Name: Chelsea Cristobal Age: 65 yrs Sex: Female : 1955 Arrival Date: 11/25/2020 Time: 02:51 Bed 8 Private MD: Diagnosis: Pain in right arm Presentation: 11/25 03:01 Chief complaint: Patient states: right arm pain for 2 days. There is now a knot in it dm5 (points to bicep area). Pt states it is keeping her from sleeping. Denies any injury. Coronavirus screen: Client denies travel out of the [place] in the last 14 days. At this time, the client does not indicate any symptoms associated with coronavirus-19. Ebola Screen: Patient negative for fever greater than or equal to 101.5 degrees Fahrenheit, and additional compatible Ebola Virus Disease symptoms Patient denies exposure to infectious person. Patient denies travel to an Ebola-affected area in the 21 days before illness onset. No symptoms or risks identified at this time. Initial Sepsis Screen: Does the patient meet any 2 criteria? No. Patient's initial sepsis screen is negative. Does the patient have a suspected source of infection? No. Patient's initial sepsis screen is negative. Risk Assessment: Do you want to hurt yourself or someone else? Patient reports no desire to harm self or others. Onset of symptoms was November 25, 2020. 03:01 Method Of Arrival: Ambulatory dm5 03:01 Acuity: INDIO 4 dm5 Historical: - Allergies: 03:03 Compazine; dm5 - Home Meds: 03:03 Lisinopril Oral [Active]; dm5 - PMHx: 03:03 Hypertension; dm5 - PSHx: 03:03 Hysterectomy; dm5 - Family history:: not pertinent. Screenin:00 Abuse screen: Denies threats or abuse. Nutritional screening: No deficits noted. jb4 Tuberculosis screening: No symptoms or risk factors identified. Fall Risk None identified. Assessment: 03:00 General: Appears in no apparent distress. uncomfortable, Behavior is calm, cooperative, jb4 appropriate for age. Pain: Complains of pain in right bicep Pain does not radiate. Pain currently is 10 out of 10 on a pain scale. Quality of pain is described as burning, Pain began 1 day ago. Neuro: Level of Consciousness is awake, alert, obeys commands, Oriented to person, place, time, situation. Cardiovascular: Patient's skin is warm and dry. Respiratory: Airway is patent Respiratory effort is even, unlabored, Respiratory pattern is regular, symmetrical. GI: No signs and/or symptoms were reported involving the gastrointestinal system. : No signs and/or symptoms were reported regarding the genitourinary system. EENT: No signs and/or symptoms were reported regarding the EENT system. Derm: Skin is intact, Skin is pink, warm \T\ dry. Musculoskeletal: Circulation, motion, and sensation intact. Range of motion: intact in all extremities. 04:04 Reassessment: Patient appears in no apparent distress at this time. Patient and/or jb4 family updated on plan of care and expected duration. Pain level reassessed. Patient is alert, oriented x 3, equal unlabored respirations, skin warm/dry/pink. D/c pending X-ray results. 04:45 Reassessment: Patient appears in no apparent distress at this time. Patient and/or jb4 family updated on plan of care and expected duration. Pain level reassessed. Patient is alert, oriented x 3, equal unlabored respirations, skin warm/dry/pink. PT placed in sling by MARIELLE Hood tech. Patient states feeling better. Vital Signs: 03:01 Weight 89.36 kg; Height 5 ft. 4 in. (162.56 cm); Pain 10/10; dm5 03:13 BP 145 / 91; Pulse 91; Resp 18; Temp 98.3(O); Pulse Ox 100% on R/A; oe 04:00 BP 134 / 76; Pulse 93; Resp 16; Pulse Ox 100% on R/A; jb4 04:34 BP 138 / 87; Pulse 81; Resp 18; Pulse Ox 100% on R/A; oe 03:01 Body Mass Index 33.81 (89.36 kg, 162.56 cm) dm5 ED Course: 02:51 Patient arrived in ED. cf2 02:58 Kevan Vasques MD is Attending Physician. sung 03:00 Patient has correct armband on for positive identification. Bed in low position. Call jb4 light in reach. Side rails up X 1. Pulse ox on. NIBP on. 03:02 Triage completed. dm5 03:03 Arm band placed on. dm5 03:07 Ricardo Castañeda, RN is Primary Nurse. jb4 03:37 Amado Merino MD is Referral Physician. sung 04:24 Humerus Right XRAY In Process Unspecified. EDMS 04:45 No provider procedures requiring assistance completed. Patient did not have IV access jb4 during this emergency room visit. Administered Medications: 03:25 Drug: Holt 10 mg-325 mg 1 tabs Route: PO; jb4 04:30 Follow up: Response: No adverse reaction; Pain is decreased; RASS: Alert and Calm (0) jb4 03:25 Drug: Motrin 400 mg Route: PO; jb4 04:30 Follow up: Response: No adverse reaction; Pain is decreased jb4 Outcome: 03:37 Discharge ordered by . sung 04:45 Discharged to home ambulatory. jb4 04:45 Condition: stable 04:45 Discharge instructions given to patient, Instructed on discharge instructions, follow up and referral plans. medication usage, Demonstrated understanding of instructions, follow-up care, medications, Prescriptions given X 2. 04:46 Patient left the ED. jb4 Signatures: Dispatcher [employer] Odessa Alonso, RN RN dm5 Kevan Vasques MD MD cha Bryson, James, RN RN jb4 Erwin Zhong Celesta cf2 Corrections: (The following items were deleted from the chart) 03:03 03:03 PSHx: None; dm5 dm5
[2020-11-25] MEDS ORDERED: HYDROCODONE/APAP 10/325 TAB ONE (03:38)
[2020-11-25 05:01] VITALS: TEMP 98.3; O2SAT 100
[2020-11-25 05:03] VITALS: BP 138/87
--- NOTE | 2020-11-25 09:48 | RAD REPORT ---
EXAM DESCRIPTION: RAD - Humerus Right - 11/25/2020 4:21 am CLINICAL HISTORY: PAIN COMPARISON: No comparisons FINDINGS: No fracture is identified. There is no dislocation or periosteal reaction noted. No foreig n body or other soft tissue abnormality. Bony hypertrophy is present along the superior aspect of the acromion. IMPRESSION: Negative right humerus examination for acute or suspicious bone, joint or soft tissue ab normality.
--- NOTE | 2020-11-25 14:23 | EKG ---
Test Date: 2020-11-25 Test Time: 03:28:34 Financial Project Manager: HENRIQUE MEASUREMENT RESULTS: Intervals: Rate: 84 MD: 146 QRSD: 78 QT: 356 QTc: 420 [place]: P: 47 MD: 146 QRS: -26 T: 30 INTERPRETIVE STATEMENTS: Normal sinus rhythm Voltage criteria for left ventricular hypertrophy Abnormal ECG Compared to ECG 04/27/2019 02:58:47 No significant changes Electronically Signed On 11-25-20 14:22:36 [employer]ION [employer]W LEADER by Huber Randhawa
== END 2020-11-25 04:46 | disposition home or self-care (01) ==
LOC: ER 02:51
DX: M79.621 Pain in right upper arm (principal); I10 Essential (primary) hypertension
CPT/HCPCS: 93005; 99284

== ENCOUNTER 2021-10-06 21:08 | Emergency (ER) | payer OTHER ==
[2021-10-06] MEDS ORDERED: MORPHINE 4 MG/ML SYR ONE (21:42)
[2021-10-06] MEDS ORDERED: ONDANSETRON 4 MG/2 ML VIAL ONE (21:42)
[2021-10-06 22:34] LABS: Absolute Lymphocytes (CBC) 2.4 K/uL (0.7-4.9); Basophils % 1.1 % (0-1.3); Hematocrit 36.2 % (36.0-45.0); Lymphocytes % 37.3 % (15.3-44.8); MPV 8.3 fL (7.6-11.3)
[2021-10-06 22:39] LABS: Urine Blood 1+ (Negative); Urine Glucose Negative (Negative); Urine Protein Trace (Negative); Urine Specific Gravity >=1.030 (1.005-1.030)
[2021-10-06 22:49] LABS: Urine Bacteria 20-50 /HPF (<20); Urine Mucus 2+ /HPF (NONE SEEN); Urine Yeast FEW (NONE SEEN)
[2021-10-06 22:52] LABS: ALT/SGPT 24 U/L (12-78); AST/SGOT 35 U/L (15-37); Albumin 3.9 g/dL (3.4-5.0); Alkaline Phosphatase 90 U/L (45-117); BUN Blood Urea Nitrogen 10 mg/dL (7-18); Bicarbonate 28 mmol/L (21-32); Bilirubin Direct < 0.1 mg/dL (0-0.2); Bilirubin Total 0.5 mg/dL (0.2-1.0); Glucose Level 76 mg/dL (74-106); Lipase 62 U/L (73-393); Potassium 4.4 mmol/L (3.5-5.1); Protein, Total 8.7 g/dL (6.4-8.2); Sodium Level 138 mmol/L (136-145)
[2021-10-07] MEDS ORDERED: KETOROLAC 30 MG/ML INJ ONE (01:00)
--- NOTE | 2021-10-07 01:18 | ER ---
Nurse's Notes [facility] Name: Chelsea Cristobal Age: 65 yrs Sex: Female : 1955 Arrival Date: 10/06/2021 Time: 21:13 Bed 17 Private MD: Diagnosis: UTI/ Urinary tract infection, site not specified;Dorsalgia, unspecified Presentation: 10/06 21:22 Chief complaint: Patient states: PT states burning , painful area of back and side. Pt da3 states family told her it looks like a little rash. Coronavirus screen: Vaccine status: Patient reports receiving the 2nd dose of the covid vaccine. Ebola Screen: No symptoms or risks identified at this time. Initial Sepsis Screen: Does the patient meet any 2 criteria? No. Patient's initial sepsis screen is negative. Does the patient have a suspected source of infection? No. Patient's initial sepsis screen is negative. Risk Assessment: Do you want to hurt yourself or someone else? Patient reports no desire to harm self or others. Onset of symptoms was October 06, 2021. 21:22 Method Of Arrival: Ambulatory da3 21:22 Acuity: INDIO 3 da3 Triage Assessment: 21:22 General: Appears in no apparent distress. uncomfortable, Behavior is calm, cooperative. da3 Pain: Complains of pain in back Pain currently is 9 out of 10 on a pain scale. Musculoskeletal: No deficits noted. - Immunization history:: Client reports receiving the 2nd dose of the Covid vaccine. - Social history:: Smoking status: Patient denies any tobacco usage or history of. Screenin:00 Abuse screen: Denies threats or abuse. Denies injuries from another. Nutritional sv1 screening: No deficits noted. Tuberculosis screening: No symptoms or risk factors identified. Fall Risk None identified. Vital Signs: 21:22 BP 147 / 86; Pulse 82; Resp 22; Temp 98.2; Pulse Ox 98% on R/A; Weight 121.11 kg; da3 Height 5 ft. 4 in. (162.56 cm); 23:28 BP 134 / 81; Pulse 77; Resp 19; Temp 98.2; Pulse Ox 99% on R/A; Pain 4/10; mr2 10/07 01:10 BP 124 / 74; Pulse 74; Resp 18; Temp 98.4; Pulse Ox 98% on R/A; sv1 10/06 21:22 Body Mass Index 45.83 (121.11 kg, 162.56 cm) da3 ED Course: 10/06 21:13 Patient arrived in ED. ja2 21:22 Arm band placed on right wrist. da3 21:25 Kevan Gomes PA is PHCP. cp 21:25 Kevan Vasques MD is Attending Physician. cp 21:26 Triage completed. da3 21:40 Jorge Gonsalez, RN is Primary Nurse. mr2 22:00 No provider procedures requiring assistance completed. sv1 23:45 CT Stone Protocol In Process Unspecified. EDMS Administered Medications: 22:15 Drug: morphine 4 mg Route: IVP; Site: left antecubital; sv1 22:15 Drug: Zofran (Ondansetron) 4 mg Route: IVP; Site: left antecubital; sv1 10/07 01:20 Drug: Lidoderm Patch 5 % (700 mg/patch) 1 patches Route: Topical; Site: affected area; sv1 01:20 Drug: Ketorolac 15 mg Route: IVP; Site: left antecubital; sv1 Outcome: 01:17 Discharge ordered by . cp 02:16 Patient left the ED. lp1 Signatures: Dispatcher [employer] EDMS Carmen Ballesteros RN RN lp1 Kevan Gomes PA PA cp Bryan Martinez, RN RN da3 Marce Alexandra ja2 Jorge Gonsalez RN RN mr2 Sebastian Leon RN RN sv1
--- NOTE | 2021-10-07 01:18 | EDPHYS ---
Physician Documentation [facility] Name: Chelsea Cristobal Age: 65 yrs Sex: Female : 1955 Arrival Date: 10/06/2021 Time: 21:13 Bed 17 Private MD: ED Physician Kevan Vasques HPI: 10/06 21:45 This 65 yrs old Black Female presents to ER via Ambulatory with complaints of Back Pain.cp 21:45 The patient presents with pain that is acute, with no known mechanism of injury. The cp symptoms are located in the left flank. 21:45 Onset: The symptoms/episode began/occurred suddenly, several hours ago. cp 21:45 The pain does not radiate. Associated signs and symptoms: Pertinent negatives: cp abdominal pain, chest pain, fever, hematuria, incontinence, numbness, weakness. The problem was sustained from unknown cause. Patient reports family member reported noticing rash in area of mid back where pain started today. - Immunization history:: Client reports receiving the 2nd dose of the Covid vaccine. - Social history:: Smoking status: Patient denies any tobacco usage or history of. ROS: 21:55 Constitutional: Negative for body aches, chills, fever, poor PO intake. cp 21:55 Eyes: Negative for injury, pain, redness, and discharge. cp 21:55 Respiratory: Negative for cough, shortness of breath, wheezing. 21:55 Abdomen/GI: Negative for abdominal pain, nausea, vomiting, and diarrhea. 21:55 Back: Positive for flank pain, on the left. Exam: 22:00 Constitutional: The patient appears in no acute distress, alert, awake, cp non-diaphoretic, non-toxic, well developed, well nourished, obese, uncomfortable. 22:00 Head/Face: Normocephalic, atraumatic. cp 22:00 Eyes: Periorbital structures: appear normal, Conjunctiva: normal, no exudate, no injection, Sclera: no appreciated abnormality, Lids and lashes: appear normal, bilaterally. 22:00 ENT: External ear(s): are unremarkable, Nose: is normal, Mouth: is normal, Posterior pharynx: Airway: no evidence of obstruction, patent. 22:00 Neck: ROM/movement: is normal, is supple, without pain, no range of motions limitations. 22:00 Chest/axilla: Inspection: normal. 22:00 Cardiovascular: Rate: normal, Rhythm: regular, Edema: is not appreciated, JVD: is not appreciated. 22:00 Respiratory: the patient does not display signs of respiratory distress, Respirations: normal, no use of accessory muscles, no retractions, labored breathing, is not present, Breath sounds: are clear throughout, no decreased breath sounds, no stridor, no wheezing. 22:00 Abdomen/GI: Inspection: abdomen appears normal, Palpation: abdomen is soft and non-tender, in all quadrants. 22:00 Back: pain, that is severe, of the left subscapular area, left low back and left mid back, ROM is painful, with all movement, vertebral tenderness, is not appreciated, Straight leg raises: of both lower extremities does not illicit pain. 22:00 Skin: cellulitis, is not appreciated, no rash present. 22:00 Neuro: Orientation: to person, place \T\ time. Mentation: is normal, Motor: moves all fours, strength is normal, Sensation: is normal. Vital Signs: 21:22 BP 147 / 86; Pulse 82; Resp 22; Temp 98.2; Pulse Ox 98% on R/A; Weight 121.11 kg; da3 Height 5 ft. 4 in. (162.56 cm); 23:28 BP 134 / 81; Pulse 77; Resp 19; Temp 98.2; Pulse Ox 99% on R/A; Pain 4/10; mr2 10/07 01:10 BP 124 / 74; Pulse 74; Resp 18; Temp 98.4; Pulse Ox 98% on R/A; sv1 10/06 21:22 Body Mass Index 45.83 (121.11 kg, 162.56 cm) da3 MDM: 10/06 21:31 Patient medically screened. sung 22:00 Differential diagnosis: Cholelithiasis ruptured disc, Ureterolithiasis herpes zoster, cp UTI, pyelonephritis. 10/07 01:15 Data reviewed: vital signs, nurses notes, lab test result(s), radiologic studies, CT cp scan. 01:15 Counseling: I had a detailed discussion with the patient and/or guardian regarding: the cp historical points, exam findings, and any diagnostic results supporting the discharge/admit diagnosis, lab results, radiology results, the need for outpatient follow up, a family practitioner, to return to the emergency department if symptoms worsen or persist or if there are any questions or concerns that arise at home. Response to treatment: VSS. Pain markedly improved with meds. CT negative for acute findings. Will discharge to home for continued monitoring. 10/06 21:39 Order name: Urine Microscopic Only cp 10/06 21:39 Order name: Basic Metabolic Panel; Complete Time: 23:02 10/07 00:38 Interpretation: Normal except: GFR 78. 10/06 21:39 Order name: CBC with Diff; Complete Time: 23:02 10/07 00:38 Interpretation: Normal except: HGB 11.7. 10/06 21:39 Order name: Hepatic Function; Complete Time: 23:02 10/06 21:39 Order name: Lipase; Complete Time: 23:02 10/06 21:39 Order name: Urine Microscopic Only; Complete Time: 23:02 EDMA 10/07 00:38 Interpretation: Normal except: UWBC 10-20; URBC 5-10; UBACT 20-50; SQEPI 5-10. 10/06 21:39 Order name: Urine Dipstick-Ancillary (obtain specimen) 10/06 22:39 Order name: Urine Dipstick-Ancillary; Complete Time: 23:02 EDMA 10/07 00:39 Interpretation: Normal except: UBLD 1+; UPROT Trace; UESTR Trace. 10/06 22:51 Order name: Urine Culture EDMA 10/06 23:03 Order name: CT Stone Protocol 10/06 21:39 Order name: IV Saline Lock 10/06 21:39 Order name: Labs collected and sent Administered Medications: 10/06 22:15 Drug: morphine 4 mg Route: IVP; Site: left antecubital; sv1 22:15 Drug: Zofran (Ondansetron) 4 mg Route: IVP; Site: left antecubital; sv1 10/07 01:20 Drug: Lidoderm Patch 5 % (700 mg/patch) 1 patches Route: Topical; Site: affected area; sv1 01:20 Drug: Ketorolac 15 mg Route: IVP; Site: left antecubital; sv1 Disposition Summary: 10/07/21 01:17 Discharge Ordered Location: Home cp Problem: new cp Symptoms: have improved cp Condition: Stable cp Diagnosis - UTI/ Urinary tract infection, site not specified cp - Dorsalgia, unspecified cp Followup: cp - With: Private Physician - When: 1 - 2 days - Reason: Recheck today's complaints Discharge Instructions: - Discharge Summary Sheet cp - Flank Pain, Adult cp - Urinary Tract Infection, Adult cp Forms: - Medication Reconciliation Form cp - Thank You Letter cp - Antibiotic Education cp - Prescription Opioid Use cp Prescriptions: - Lidoderm 5 % Topical adhesive patch,medicated - apply 1 patch by TOPICAL route once daily As needed; 1 box; Refills: 0, Product cp Selection Permitted - Augmentin 875-125 mg Oral Tablet - take 1 tablet by ORAL route every 12 hours for 7 days; 14 tablet; Refills: 0, cp Product Selection Permitted - Cyclobenzaprine 10 mg Oral Tablet - take 1 tablet by ORAL route every 8 hours As needed; 20 tablet; Refills: 0, cp Product Selection Permitted - Diclofenac Sodium 75 mg Oral tablet,delayed release (DR/EC) - take 1 tablet by ORAL route 2 times per day; 20 tablet; Refills: 0, Product cp Selection Permitted Addendum: 10/08/2021 11:12 Co-signature as Attending Physician, Kevan Vasques MD I agree with the assessment and c rowe plan of care. Signatures: Dispatcher [employer] EDKevan Dumont MD MD cha Page, Corey PA PA Bryan Angulo, RN RN da3 Jorge Gonsalez RN RN mr2 Sebastian Leon RN RN sv1
[2021-10-07] MEDS ORDERED: LIDOCAINE 4% PATCH ONE (01:21)
[2021-10-07 02:25] VITALS: BP 124/74; TEMP 98.4; O2SAT 98
--- NOTE | 2021-10-08 10:36 | RAD REPORT ---
EXAM DESCRIPTION: CT - Stone Protocol - 10/07/2021 6:39 am CLINICAL HISTORY: 65 years Female left flank pain TECHNIQUE: Contiguous axial images obtained through the abdomen and pelvis without IV contrast. Nelson nal and sagittal reformatted images provided. This CT exam was performed according to our departmental dose-optimization program, which includes on e or more of the following dose reduction techniques: automated exposure control, adjustment of the m A and/or kV according to patient size, and/or use of iterative reconstruction technique. COMPARISON: 04/27/2019 FINDINGS: There are no renal, ureteral, or bladder calculi. There is no hydronephrosis or perinephri c stranding on either side. Mild diffuse colonic constipation. There is no bowel inflammation, obstruction, free intraperitoneal air, or ascites. Suspected prior appendectomy. Mild bibasilar atelectasis. Prior cholecystectomy likely accounts for stable mild biliary prominence. No visualized biliary stone . The unenhanced liver pancreas, spleen, adrenal glands, kidneys, urinary bladder, and osseous structur es are normal. IMPRESSION: Mild diffuse colonic constipation without bowel inflammation or obstruction. No other acute findings in the abdomen or pelvis. No urinary calculi or hydronephrosis. Electronically signed by: Shante Man MD 10/06/2021 11:57 PM [employer]ITCH [employer]ER Due to temporary technical issues with the PACS/Fluency reporting system, reports are being signed by the in house radiologists without review as a courtesy to insure prompt reporting. The interpreting radiologist is fully responsible for the content of the report.
== END 2021-10-07 02:16 | disposition home or self-care (01) ==
LOC: ER 21:08
DX: N39.0 Urinary tract infection, site not specified (principal)
CPT/HCPCS: 87088; 85025; 87086; 80048; 36415; 80076; 83690; 76377; 74176; 96375; 96374; 99283; J2405; 81003; 81015

== ENCOUNTER 2022-01-10 21:33 | Emergency (ER) | payer SELFPAY ==
[2022-01-11] MEDS ORDERED: METOCLOPRAMIDE 10 MG/2mL INJ ONE (00:42)
[2022-01-11] MEDS ORDERED: dexAMETHasone 10 MG/ML VIAL ONE (00:43)
[2022-01-11] MEDS ORDERED: DIPHENHYDRAMINE 50 MG/ML VIAL ONE (00:43)
[2022-01-11] MEDS ORDERED: ONDANSETRON 4 MG/2 ML VIAL ONE (00:43)
[2022-01-11 00:46] LABS: Urine Blood 2+ (Negative); Urine Glucose Negative (Negative); Urine Protein Negative (Negative); Urine Specific Gravity >=1.030 (1.005-1.030)
[2022-01-11 01:13] LABS: Hematocrit 34.2 % (36.0-45.0); Lymphocytes % 37.9 % (15.3-44.8); MPV 8.2 fL (7.6-11.3); RBC Red Blood Cell Count 3.76 M/uL (3.86-4.86)
[2022-01-11 01:25] LABS: Urine Bacteria >50 /HPF (<20); Urine Mucus 2+ /HPF (NONE SEEN)
[2022-01-11 01:26] LABS: BUN Blood Urea Nitrogen 10 mg/dL (7-18); Bicarbonate 29 mmol/L (21-32); Glucose Level 89 mg/dL (74-106); Potassium 4.1 mmol/L (3.5-5.1); Sodium Level 141 mmol/L (136-145)
--- NOTE | 2022-01-11 02:35 | EDPHYS ---
Physician Documentation [facility] Name: Chelsea Cristobal Age: 66 yrs Sex: Female : 1955 Arrival Date: 01/10/2022 Time: 21:35 Bed 14 Private MD: ED Physician Narinder Abdullahi HPI: 01/11 00:00 This 66 yrs old Black Female presents to ER via Ambulatory with complaints of Headache. cp 00:00 The patient complains of pain to the top of head, forehead, right adventist and left cp adventist. The patient describes the headache as aching. Onset: The symptoms/episode began/occurred today. 00:00 Associated signs and symptoms: Pertinent negatives: altered mental status, dizziness, cp fever, neck stiffness, paresthesias, Photophobia sinus congestion, sinus tenderness, vomiting, weakness. Severity of symptoms: in the emergency department the pain is unchanged, despite home interventions. 00:00 Headache History: The patient has had previous headaches and this one is similar to cp previous episodes. Historical: - Allergies: 01/10 22:41 Compazine; vc1 - Home Meds: 22:41 lisinopril Oral [Active]; vc1 - PMHx: 22:41 Hypertension; vc1 - Immunization history:: Adult Immunizations up to date, Client reports receiving the 2nd dose of the Covid vaccine, Flu vaccine is not up to date. - Social history:: Smoking status: Patient denies any tobacco usage or history of. ROS: 01/11 00:05 Constitutional: Negative for body aches, chills, fever, poor PO intake. cp 00:05 Eyes: Negative for injury, pain, redness, and discharge. cp 00:05 ENT: Negative for drainage from ear(s), ear pain, sinus congestion, sinus pain, sore throat, difficulty swallowing, difficulty handling secretions. 00:05 Cardiovascular: Negative for chest pain, palpitations. 00:05 Respiratory: Negative for cough, shortness of breath, wheezing. 00:05 Abdomen/GI: Negative for abdominal pain, nausea, vomiting, and diarrhea. 00:05 : Negative for urinary symptoms. 00:05 Neuro: Positive for headache, Negative for altered mental status, dizziness, weakness. 00:05 All other systems are negative. Exam: 00:10 Constitutional: The patient appears in no acute distress, alert, awake, cp non-diaphoretic, non-toxic, well developed, well nourished. 00:10 Head/Face: Normocephalic, atraumatic. cp 00:10 Eyes: Periorbital structures: appear normal, Pupils: equal, round, and reactive to light and accomodation, Extraocular movements: intact throughout, Conjunctiva: normal, no exudate, no injection, Sclera: no appreciated abnormality, Lids and lashes: appear normal, bilaterally. 00:10 ENT: External ear(s): are unremarkable, Ear canal(s): are normal, clear, TM's: dullness, bilaterally, Nose: is normal, Mouth: Lips: moist, Oral mucosa: pink and intact, moist, Posterior pharynx: Airway: no evidence of obstruction, patent. 00:10 Neck: ROM/movement: is normal, is supple, without pain, no range of motions limitations. 00:10 Chest/axilla: Inspection: normal. 00:10 Cardiovascular: Rate: normal, Rhythm: regular. 00:10 Respiratory: the patient does not display signs of respiratory distress, Respirations: normal, no use of accessory muscles, no retractions, labored breathing, is not present, Breath sounds: are clear throughout, no decreased breath sounds, no stridor, no wheezing. 00:10 Abdomen/GI: Exam negative for discomfort, distension, guarding, Inspection: abdomen appears normal. 00:10 Back: pain, is absent, ROM is normal. 00:10 Neuro: Orientation: to person, place \T\ time. Mentation: is normal, Motor: moves all fours, strength is normal, Sensation: is normal. Vital Signs: 01/10 22:39 BP 140 / 97; Pulse 76; Resp 20; Temp 97.9; Pulse Ox 98% on R/A; Weight 119.75 kg; vc1 Height 5 ft. 4 in. (162.56 cm); Pain 8/10; 01/11 01:00 BP 139 / 79 RA Supine (auto/reg); Pulse 75 MON; Resp 18 S; Pulse Ox 100% on R/A; Pain tk1 10/10; 01:40 Pain 7/10; tk1 01:40 Pain 7/10; tk1 01:40 Pain 7/10; tk1 02:00 BP 124 / 78 RA Supine (auto/reg); Pulse 74 MON; Resp 18 S; Pulse Ox 98% ; Pain 7/10; tk1 01/10 22:39 Body Mass Index 45.32 (119.75 kg, 162.56 cm) vc1 MDM: 01/10 23:14 Patient medically screened. 01/11 00:00 Differential diagnosis: hypertensive headache, hyponatremia, intracerebral hemorrhage, cp meningoencephalitis, migraine, sinusitis, subarachnoid bleed, tension headache. 02:33 Data reviewed: vital signs, nurses notes, lab test result(s), radiologic studies, CT cp scan. 02:33 Counseling: I had a detailed discussion with the patient and/or guardian regarding: the cp historical points, exam findings, and any diagnostic results supporting the discharge/admit diagnosis, lab results, radiology results, to return to the emergency department if symptoms worsen or persist or if there are any questions or concerns that arise at home. Response to treatment: the patient's symptoms have markedly improved after treatment, VSS. Patient reports headache markedly improved with meds. Will discharge to home for continued monitoring. 01/11 00:33 Order name: Urine Microscopic Only; Complete Time: 02:26 cp 01/11 02:26 Interpretation: Normal except: UWBC 10-20; URBC 5-10; UBACT >50; SQEPI 5-10. 01/11 00:33 Order name: CBC with Diff; Complete Time: 02:26 cp 01/10 23:26 Order name: CT Head Brain wo Cont 01/11 00:33 Order name: BMP; Complete Time: 02:26 cp 01/11 00:46 Order name: Urine Dipstick-Ancillary; Complete Time: 02:26 EDMS 01/11 02:27 Interpretation: Reviewed. 01/11 01:26 Order name: Urine Culture EDMS 01/11 00:33 Order name: Urine Dipstick-Ancillary (obtain specimen); Complete Time: 01:11 cp 01/11 00:33 Order name: IV; Complete Time: 01:11 cp Administered Medications: 01:00 Drug: Reglan (metoCLOPramide) 10 mg Route: IVP; Rate: 5 mg/min; Infused Over: 2 mins; tk1 Site: left hand; 01:40 Follow up: Pain 7/10 Adult; Response: Pain is decreased tk1 01:02 Drug: Zofran (Ondansetron) 4 mg Route: IVP; Rate: 2 mg/min; Infused Over: 2 mins; Site: tk1 left hand; 01:40 Follow up: Response: Nausea is decreased tk1 01:05 Drug: Benadryl (diphenhydrAMINE) 25 mg Route: IVP; Rate: 12.5 mg/min; Infused Over: 2 tk1 mins; Site: left hand; 01:40 Follow up: Pain 7/10 Adult; Response: Pain is decreased tk1 01:07 Drug: Dexamethasone 10 mg Route: IVP; Rate: 5 mg/min; Infused Over: 2 mins; Site: left tk1 hand; 01:40 Follow up: Pain 7/10 Adult; Response: Pain is decreased tk1 Disposition Summary: 01/11/22 02:34 Discharge Ordered Location: Home cp Problem: new cp Symptoms: have improved cp Condition: Stable cp Diagnosis - Headache cp Followup: cp - With: Private Physician - When: 2 - 3 days - Reason: Recheck today's complaints Discharge Instructions: - Discharge Summary Sheet cp - General Headache Without Cause cp Forms: - Medication Reconciliation Form cp - Thank You Letter cp - Antibiotic Education cp - Prescription Opioid Use cp Prescriptions: - Ibuprofen 800 mg Oral Tablet - take 1 tablet by ORAL route every 8 hours As needed take with food; 30 tablet; cp Refills: 0, Product Selection Permitted - Zofran 4 mg Oral Tablet - take 1 tablet by ORAL route every 12 hours As needed; 20 tablet; Refills: 0, cp Product Selection Permitted Addendum: 01/17/2022 07:28 Co-signature as Attending Physician, Narinder Abdullahi MD I agree with the assessment and k dr plan of care. Signatures: Dispatcher [employer] EDND Narinder Abdullahi MD MD kdr Kevan Gomes PA PA cp Candida Riddle tk1 Jes Trevizo RN RN vc1
--- NOTE | 2022-01-11 02:35 | ER ---
Nurse's Notes [facility] Name: Chelsea Cristobal Age: 66 yrs Sex: Female : 1955 Arrival Date: 01/10/2022 Time: 21:35 Bed 14 Private MD: Diagnosis: Headache Presentation: 01/10 22:39 Chief complaint: Patient states: "I've had a bad headache all day. I took some vc1 excederin around 2:45 and it just hasn't let up.". Coronavirus screen: Vaccine status: Patient reports receiving the 2nd dose of the covid vaccine. Pfizer, no booster headache. Ebola Screen: No symptoms or risks identified at this time. Initial Sepsis Screen: Does the patient meet any 2 criteria? No. Patient's initial sepsis screen is negative. Does the patient have a suspected source of infection? No. Patient's initial sepsis screen is negative. Risk Assessment: Do you want to hurt yourself or someone else? Patient reports no desire to harm self or others. Onset of symptoms was January 10, 2022. 22:39 Method Of Arrival: Ambulatory 1 22:39 Acuity: INDIO 3 vc1 Triage Assessment: 22:41 Headache History: The patient has had previous headaches and this one is similar to 1 previous episodes. General: Appears in no apparent distress. uncomfortable, Behavior is calm, cooperative, appropriate for age. Pain: Complains of pain in forehead, right denominational and left denominational Pain does not radiate. Pain currently is 7 out of 10 on a pain scale. Quality of pain is described as "pounding" Pain began gradually, Alleviated by nothing. Also complains of no other associated symptoms. Neuro: Level of Consciousness is awake, alert, obeys commands, Oriented to person, place, time, situation, Appropriate for age. Historical: - Allergies: 22:41 Compazine; vc1 - Home Meds: 22:41 lisinopril Oral [Active]; vc1 - PMHx: 22:41 Hypertension; vc1 - Immunization history:: Adult Immunizations up to date, Client reports receiving the 2nd dose of the Covid vaccine, Flu vaccine is not up to date. - Social history:: Smoking status: Patient denies any tobacco usage or history of. Screenin/18 00:45 Abuse screen: Denies threats or abuse. Denies injuries from another. Nutritional tk1 screening: No deficits noted. Tuberculosis screening: No symptoms or risk factors identified. Fall Risk None identified. Assessment: 00:45 General: Appears in no apparent distress. comfortable, well groomed, well developed, tk1 well nourished. Pain: Complains of pain in head Pain does not radiate. Pain currently is 10 out of 10 on a pain scale. Quality of pain is described as aching, Pain began gradually, 1 day ago. Is continuous. Neuro: No deficits noted. 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 Gait is steady, Speech is normal, Facial symmetry appears normal, Reports headache in entire. Cardiovascular: Capillary refill < 3 seconds is brisk in bilateral fingers. Respiratory: Airway is patent Respiratory effort is even, unlabored, Respiratory pattern is regular, symmetrical. GI: No deficits noted. No signs and/or symptoms were reported involving the gastrointestinal system. : No deficits noted. No signs and/or symptoms were reported regarding the genitourinary system. EENT: No deficits noted. No signs and/or symptoms were reported regarding the EENT system. Derm: No deficits noted. No signs and/or symptoms reported regarding the dermatologic system. Musculoskeletal: No deficits noted. No signs and/or symptoms reported regarding the musculoskeletal system. 02:00 Reassessment: No changes from previously documented assessment. Patient and/or family tk1 updated on plan of care and expected duration. Pain level reassessed. Patient is alert, oriented x 3, equal unlabored respirations, skin warm/dry/pink. Pain: Pain currently is 7 out of 10 on a pain scale. 02:57 Reassessment: D/C per PA order. Discharge/Prescription instructions given to patient tk1 and SO. Verbalized understanding. Vital Signs: 01/10 22:39 BP 140 / 97; Pulse 76; Resp 20; Temp 97.9; Pulse Ox 98% on R/A; Weight 119.75 kg; vc1 Height 5 ft. 4 in. (162.56 cm); Pain 8/10; 01/11 01:00 BP 139 / 79 RA Supine (auto/reg); Pulse 75 MON; Resp 18 S; Pulse Ox 100% on R/A; Pain tk1 1010; 01:40 Pain 7/10; tk1 01:40 Pain 7/10; tk1 01:40 Pain 7/10; tk1 02:00 BP 124 / 78 RA Supine (auto/reg); Pulse 74 MON; Resp 18 S; Pulse Ox 98% ; Pain 7/10; tk1 01/10 22:39 Body Mass Index 45.32 (119.75 kg, 162.56 cm) vc1 ED Course: 01/10 21:35 Patient arrived in ED. jj6 22:41 Triage completed. vc1 22:42 Arm band placed on right wrist. vc1 23:06 Kevan Gomes PA is PHCP. cp 23:07 Narinder Abdullahi MD is Attending Physician. cp 23:16 Candida Riddle is Primary Nurse. tk1 01/11 00:11 CT Head Brain wo Cont In Process Unspecified. EDMS 00:45 Patient has correct armband on for positive identification. Bed in low position. Call tk1 light in reach. Side rails up X2. Pulse ox on. NIBP on. Warm blanket given. 00:45 No provider procedures requiring assistance completed. tk1 01:00 Inserted saline lock: 20 gauge in left hand, using aseptic technique. Blood collected. tk1 01:11 Urine Microscopic Only Sent. tk1 01:11 CBC with Diff Sent. tk1 01:11 BMP Sent. tk1 02:57 IV discontinued, intact, bleeding controlled, No redness/swelling at site. Pressure tk1 dressing applied. Administered Medications: 01:00 Drug: Reglan (metoCLOPramide) 10 mg Route: IVP; Rate: 5 mg/min; Infused Over: 2 mins; tk1 Site: left hand; :40 Follow up: Pain 7/10 Adult; Response: Pain is decreased tk1 01:02 Drug: Zofran (Ondansetron) 4 mg Route: IVP; Rate: 2 mg/min; Infused Over: 2 mins; Site: tk1 left hand; :40 Follow up: Response: Nausea is decreased tk1 01:05 Drug: Benadryl (diphenhydrAMINE) 25 mg Route: IVP; Rate: 12.5 mg/min; Infused Over: 2 tk1 mins; Site: left hand; :40 Follow up: Pain 7/10 Adult; Response: Pain is decreased tk1 01:07 Drug: Dexamethasone 10 mg Route: IVP; Rate: 5 mg/min; Infused Over: 2 mins; Site: left tk1 hand; 01:40 Follow up: Pain 7/10 Adult; Response: Pain is decreased tk1 Outcome: 02:34 Discharge ordered by . cp 02:57 Discharged to home ambulatory, with family. tk1 02:57 Condition: stable 02:57 Discharge instructions given to patient, family, Instructed on discharge instructions, follow up and referral plans. medication usage, Demonstrated understanding of instructions, follow-up care, medications, Prescriptions given X 2. 02:59 Patient left the ED. tk1 Signatures: Dispatcher [employer] EDMS Kevan Gomes PA PA cp Jeffries, Jennifer jj6 Candida Riddle tk1 Jes Trevizo RN RN vc1
[2022-01-11 06:29] VITALS: TEMP 97.9
[2022-01-11 06:34] VITALS: BP 124/78; O2SAT 98
--- NOTE | 2022-01-11 10:57 | RAD REPORT ---
EXAM DESCRIPTION: CT - Head Brain Wo Cont - 01/11/2022 6:11 am CLINICAL HISTORY: HEADACHE COMPARISON: 11/19/2020 TECHNIQUE: Axial CT of the head obtained from the skull apex to the skull base without contrast. Thi s exam was performed according to our departmental dose-optimization program, which includes automate d exposure control, adjustment of the mA and/or kV according to patient size and/or use of iterative reconstruction technique. FINDINGS: No acute intracranial hemorrhage identified. No mass, mass effect, shift of the midline, a bnormal extra-axial fluid collection or CT evidence of acute ischemic change identified. The ventricu lar system and sulcal spaces are mildly enlarged compatible with mild cerebral atrophy. Scattered a reas of hypodensity throughout the supratentorial white matter are nonspecific and may be related to chronic small vessel ischemic change. The visualized paranasal sinuses and mastoid air cells are well aerated. No skull fracture identifi ed. Visualized orbits and globes are unremarkable. Atherosclerotic calcification of the intracranial internal carotid arteries. IMPRESSION: 1. No acute intracranial abnormality by CT criteria. Electronically signed by: Rayo Webster 01/11/2022 12:46 AM CDT Due to temporary technical issues with the PACS/Fluency reporting system, reports are being signed by the in house radiologist without review as a courtesy to ensure prompt reporting. The interpreting r adiologist is fully responsible for the content of the report.
== END 2022-01-11 02:59 | disposition home or self-care (01) ==
LOC: ER 21:33
DX: R51.9 Headache, unspecified (principal); I10 Essential (primary) hypertension; Z88.1 Allergy status to other antibiotic agents
CPT/HCPCS: 36415; 70450; 80048; 81003; 81015; 85025; 87086; 87088; 96374; 96375; 99284; J1100; J1200; J2405; J2765

== ENCOUNTER 2023-05-02 20:29 | Inpatient (IN) | payer MEDICARE, OTHER ==
--- OUTSIDE RECORDS SUMMARY | 2023-05-02 20:35 | XMS REPORT | Continuity of Care Document ---
:1955 Author Organization [facility] t Address [address] [place] [address] Care Team Providers Name Role Phone ÁNGEL Attending Clinician Unavailable ÁNGEL Admitting Clinician Unavailable Payers Payer Name Policy Type Policy Number Effective Date Expiration Date S melodie [facility] [id number] 2023 (MEDICARE 00:00:00 REPLACEMENT HMO) Problems This patient has no known problems. Allergies, Adverse Reactions, Alerts This patient has no known allergies or adverse reactions. Medications This patient has no known medications. Procedures This patient has no known procedures. Encounters Start End Encounter Admission Attending Care Care Encounter Source Date/Time Date/Time Type Type Clinicians Facility Department ID 2023-03-28 2023-03-28 Outpatient [facility] DM [id number] [facility] 00:00:00 00:00:00 [id number] 2022-12-18 2022-12-18 Outpatient [facility]OL[facility]ANG GOSS [id number] [place] 13:49:50 13:49:50 [id number] Ajay Sanz 2022-05-08 2022-05-08 Outpatient CHEN SALDANA [address] [place] 10:57:00 10:57:00 HN [id number] da [facility] Program Results This patient has no known results.
[2023-05-02] MEDS ORDERED: ONDANSETRON 4 MG/2 ML VIAL ONE (20:57)
[2023-05-02] MEDS ORDERED: MORPHINE 4 MG/ML SYR ONE ×2 (20:57→21:50)
--- NOTE | 2023-05-02 22:39 | RAD REPORT ---
EXAM DESCRIPTION: RAD - Femur Left - 05/02/2023 10:25 pm CLINICAL HISTORY: PAIN COMPARISON: Hip Left 2 View dated 05/02/2023 TECHNIQUE: Left femur, 2 views. FINDINGS: Displaced left proximal femoral diaphysis fracture. There is no dislocation or periosteal reaction noted. No acute or suspicious bony finding. IMPRESSION: Displaced left proximal femoral diaphysis fracture.
--- NOTE | 2023-05-02 22:39 | RAD REPORT ---
EXAM DESCRIPTION: RAD - Hip Left 2 View - 05/02/2023 10:25 pm CLINICAL HISTORY: PAIN COMPARISON: <Comparisons> TECHNIQUE: Left hip, AP view. FINDINGS: Displaced left proximal femoral diaphysis fracture, with abduction of the proximal fragmen t. No acute or destructive bony process seen. IMPRESSION: Displaced left proximal femoral diaphysis fracture.
[2023-05-02 22:45] LABS: Hematocrit 33.3 % (36.0-45.0); Lymphocytes % 9.8 % (15.3-44.8); MCV 91.7 fL (80-100); MPV 8.1 fL (7.6-11.3); RBC Red Blood Cell Count 3.63 M/uL (3.86-4.86)
[2023-05-02 22:51] LABS: Potassium 3.8 mEq/L (3.5-5.1)
--- NOTE | 2023-05-02 22:53 | EDPHYS ---
Physician Documentation [facility] Name: Chelsea Cristobal Age: 67 yrs Sex: Female : 1955 Arrival Date: 05/02/2023 Time: 20:29 Bed 3 Private MD: ED Physician Dylan Aceves HPI: 05/02 23:22 This 67 yrs old Black Female presents to ER via EMS with complaints of Leg Injury. rt 23:22 Patient presents to the ED with trip and fall onto the left hip. She denies hitting her rt head, denies any other pains other than pain to the left hip. Pain is sharp in nature, severe in severity, worse with movement, no other aggravating or alleviating factors.. Historical: - Allergies: 20:56 NKDA; pf1 - PMHx: 20:56 Hypertension; pf1 - PSHx: 21:01 right ankle surgery; pf1 - Immunization history:: Adult Immunizations not up to date, Client reports having NOT received the Covid vaccine. Last tetanus immunization: > 10 years ago Flu vaccine is not up to date. - Social history:: Smoking status: Patient denies any tobacco usage or history of. Patient/guardian denies using alcohol, street drugs. - Family history:: not pertinent. ROS: 23:22 Constitutional: Negative for fever, chills, and weight loss, Cardiovascular: Negative rt for chest pain, palpitations, and edema, Respiratory: Negative for shortness of breath, cough, wheezing, and pleuritic chest pain, Abdomen/GI: Negative for abdominal pain, nausea, vomiting, diarrhea, and constipation, Back: Negative for injury and pain, Skin: Negative for injury, rash, and discoloration, Neuro: Negative for headache, weakness, numbness, tingling, and seizure, Psych: Negative for depression, anxiety, suicide ideation, homicidal ideation, and hallucinations. 23:22 MS/extremity: Positive for injury or acute deformity, pain. Exam: 23:22 ECG was reviewed by the Attending Physician. rt 23:22 Constitutional: This is a well developed, well nourished patient who is awake, alert, rt and in no acute distress. Neck: Trachea midline, no thyromegaly or masses palpated, and no cervical lymphadenopathy. Supple, full range of motion without nuchal rigidity, or vertebral point tenderness. No Meningismus. Chest/axilla: Normal chest wall appearance and motion. Nontender with no deformity. No lesions are appreciated. Cardiovascular: Regular rate and rhythm with a normal S1 and S2. No gallops, murmurs, or rubs. Normal PMI, no JVD. No pulse deficits. Respiratory: Lungs have equal breath sounds bilaterally, clear to auscultation and percussion. No rales, rhonchi or wheezes noted. No increased work of breathing, no retractions or nasal flaring. Abdomen/GI: Soft, non-tender, with normal bowel sounds. No distension or tympany. No guarding or rebound. No evidence of tenderness throughout. Skin: Warm, dry with normal turgor. Normal color with no rashes, no lesions, and no evidence of cellulitis. Neuro: Awake and alert, GCS 15, oriented to person, place, time, and situation. Cranial nerves II-XII grossly intact. Motor strength 5/5 in all extremities. Sensory grossly intact. Cerebellar exam normal. Normal gait. Psych: Awake, alert, with orientation to person, place and time. Behavior, mood, and affect are within normal limits. 23:22 Musculoskeletal/extremity: Left lower extremity foreshortened, externally rotated with tenderness to the left hip, no other swelling, deformity, tender to palpation, no neurovascular compromise. Vital Signs: 20:40 BP 166 / 96; Pulse 89; Resp 20; Temp 97.7; Pulse Ox 98% on R/A; Weight 111 kg; Height 5 pf1 ft. 4 in. ; Pain 10/10; 21:30 BP 156 / 101; Pulse 95; Resp 20; Pulse Ox 100% ; Pain 10/10; pf1 22:30 BP 171 / 88; Pulse 99; Resp 18; Pulse Ox 98% on R/A; Pain 9/10; pf1 23:26 BP 160 / 86; Pulse 98; Resp 18; Pulse Ox 100% on R/A; Pain 9/10; pf1 20:40 Body Mass Index 42.00 (111.00 kg, 162.56 cm) pf1 20:40 Pain Scale: Adult pf1 21:30 Pain Scale: Adult pf1 22:30 Pain Scale: Adult pf1 23:26 Pain Scale: Adult pf1 MDM: 20:43 Patient medically screened. rt 23:22 Differential diagnosis: Fracture, contusion, dislocation. Data reviewed: vital signs, rt nurses notes. Consideration of Admission/Observation Patient was admitted/placed on observation. Management of patient was discussed with the following: Hospitalist: Agrees to admit. Shear Operator Automatic: Discussed with orthopedics, will see patient tomorrow, recommends hospitalist admission. I considered the following discharge prescriptions or medication management in the emergency department Medications were administered in the Emergency Department. See MAR. Independent interpretation of the following test(s) in the Emergency Department X-Ray: My interpretation is Subtrochanteric fracture seen on interpretation of the x-ray images. Test considered but Not performed: CT: Denies head trauma, syncope, CT scan of the head is not indicated. Care significantly affected by the following chronic conditions: Hypertension. Counseling: I had a detailed discussion with the patient and/or guardian regarding: the historical points, exam findings, and any diagnostic results supporting the discharge/admit diagnosis, radiology results, the need for further work-up and treatment in the hospital. 05/02 22:21 Order name: CBC with Diff; Complete Time: 22:52 la05/02 22:21 Order name: BMP; Complete Time: 22:52 la05/02 20:43 Order name: Hip Left 2 View XRAY; Complete Time: 22:41 rt 05/02 20:43 Order name: Femur Left XRAY; Complete Time: 22:41 rt 05/02 22:21 Order name: IV; Complete Time: 23:34 la1 05/02 22:21 Order name: EKG - Nurse/Tech; Complete Time: 23:10 la1 05/02 22:21 Order name: Kirk; Complete Time: 23:24 la1 EC:22 Rate is 96 beats/min. Rhythm is regular, Normal Sinus Rhythm with No ectopy. QRS [place] rt is Normal. PA interval is normal. QRS interval is normal. QT interval is normal. No Q waves. T waves are Normal. No ST changes noted. Interpreted by me. Administered Medications: 20:50 Drug: morphine IVP or IV 4 mg Route: IVP; Infused Over: 4 mins; Site: right antecubital;pf1 21:47 Follow up: Response: No adverse reaction; Marked relief of symptoms; Pain is unchanged, pf1 physician notified 20:50 Drug: Ondansetron IVP 4 mg Route: IVP; Site: right antecubital; pf1 21:47 Follow up: Response: No adverse reaction; Marked relief of symptoms pf1 21:45 Drug: morphine IVP or IV 4 mg Route: IVP; Infused Over: 4 mins; Site: right antecubital;pf1 22:45 Follow up: Response: No adverse reaction; Marked relief of symptoms; Pain is unchanged, pf1 physician notified 22:55 Drug: Cyclobenzaprine PO 10 mg Route: PO; pf1 23:30 Follow up: Response: No adverse reaction; Marked relief of symptoms; Pain is decreased pf1 22:55 Drug: HYDROmorphone IVP 0.5 mg Route: IVP; Site: right antecubital; pf1 23:30 Follow up: Response: No adverse reaction; Marked relief of symptoms; Pain is decreased pf1 Disposition Summary: 05/02/23 22:52 Hospitalization Ordered Hospitalization Status: Inpatient Admission rt Provider: Kana Dempsey rt Location: Telemetry/MedSurg (observation) rt Condition: Stable rt Problem: new rt Symptoms: are unchanged rt Bed/Room Type: Standard rt Room Assignment: 210(05/02/23 22:56) cg Diagnosis - Subtrochanteric left femur fracture rt Forms: - Medication Reconciliation Form rt - SBAR form rt Signatures: Dispatcher [employer] Mando Eric, SUHAS GALLAGHERP-Cla1 Mimi Aguiar, JIGNESH RN cg Dylan Aceves MD MD rt Ashley Alexander RN RN pf1 Corrections: (The following items were deleted from the chart) 22:56 22:52 rt cg
--- NOTE | 2023-05-02 22:53 | ER ---
Nurse's Notes [facility] Name: Chelsea Cristobal Age: 67 yrs Sex: Female : 1955 Arrival Date: 05/02/2023 Time: 20:29 Bed 3 Private MD: Diagnosis: Subtrochanteric left femur fracture Presentation: 05/02 20:40 Chief complaint: Patient states: fall with left upper anterior leg pain of 10,onset pf1 1914,S/P tripped on a rug on the front porch and fell. Patient denies any head injury or LOC. 20:40 Coronavirus screen: Vaccine status: Patient reports being unvaccinated. Client denies pf1 travel out of the [place] in the last 14 days. At this time, the client does not indicate any symptoms associated with coronavirus-19. Ebola Screen: Patient negative for fever greater than or equal to 101.5 degrees Fahrenheit, and additional compatible Ebola Virus Disease symptoms. Initial Sepsis Screen: Does the patient meet any 2 criteria? No. Patient's initial sepsis screen is negative. Does the patient have a suspected source of infection? No. Patient's initial sepsis screen is negative. Risk Assessment: Do you want to hurt yourself or someone else? Patient reports no desire to harm self or others. 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 Historical: - Allergies: 20:56 NKDA; pf1 - PMHx: 20:56 Hypertension; pf1 - PSHx: 21:01 right ankle surgery; pf1 - Immunization history:: Adult Immunizations not up to date, Client reports having NOT received the Covid vaccine. Last tetanus immunization: > 10 years ago Flu vaccine is not up to date. - Social history:: Smoking status: Patient denies any tobacco usage or history of. Patient/guardian denies using alcohol, street drugs. - Family history:: not pertinent. Screenin:50 [facility] ED Fall Risk Assessment (Adult) History of falling in the last 3 months, pf1 including since admission Yes- single mechanical fall (1 pt) Confusion or Disorientation No (0 pts) Intoxicated or Sedated No (0 pts) Impaired Gait Yes (1 pt) Mobility Assist Device Used No (0 pt) Altered Elimination No (0 pt) Score/Fall Risk Level 0 - 2 = Low Risk Oriented to surroundings, Maintained a safe environment, Educated pt \T\ family on fall prevention, incl call for assistance when getting out of bed, Assessed \T\ reinforced patient's understanding of fall precautions, Provided non-skid footwear, Hourly rounding (assess needs \T\ fall precautionary measures) done, Used ambulatory aids as needed (educated on \T\ assisted with), Used gait belt as appropriate. 20:50 Abuse screen: Denies threats or abuse. Nutritional screening: No deficits noted. pf1 Tuberculosis screening: No symptoms or risk factors identified. Assessment: 20:45 General: Appears in no apparent distress. uncomfortable, well groomed, well developed, pf1 Behavior is cooperative, appropriate for age. 20:45 Pain: Complains of pain in left leg Pain currently is 10 out of 10 on a pain scale. pf1 Neuro: Level of Consciousness is awake, alert, obeys commands, Oriented to person, place, time, situation. Cardiovascular: Capillary refill < 3 seconds Patient's skin is warm and dry. Respiratory: Airway is patent Respiratory effort is even, unlabored, Respiratory pattern is regular, symmetrical, Breath sounds are clear bilaterally. GI: No deficits noted. No signs and/or symptoms were reported involving the gastrointestinal system. : No deficits noted. No signs and/or symptoms were reported regarding the genitourinary system. EENT: No deficits noted. No signs and/or symptoms were reported regarding the EENT system. Derm: No deficits noted. No signs and/or symptoms reported regarding the dermatologic system. Musculoskeletal: Circulation, motion, and sensation intact. Capillary refill < 3 seconds, Range of motion: limited in left upper leg. 21:30 Reassessment: Patient appears in no apparent distress at this time. Patient and/or pf1 family updated on plan of care and expected duration. Pain level reassessed. Patient is alert, oriented x 3, equal unlabored respirations, skin warm/dry/pink. Patient states symptoms have not improved. 22:30 Reassessment: Patient appears in no apparent distress at this time. Patient and/or pf1 family updated on plan of care and expected duration. Pain level reassessed. Patient is alert, oriented x 3, equal unlabored respirations, skin warm/dry/pink. Patient states symptoms have not improved. 23:27 Reassessment: Patient appears in no apparent distress at this time. Patient and/or pf1 family updated on plan of care and expected duration. Pain level reassessed. Patient is alert, oriented x 3, equal unlabored respirations, skin warm/dry/pink. Patient states symptoms have not improved. Vital Signs: 20:40 BP 166 / 96; Pulse 89; Resp 20; Temp 97.7; Pulse Ox 98% on R/A; Weight 111 kg; Height 5 pf1 ft. 4 in. ; Pain 10/10; 21:30 BP 156 / 101; Pulse 95; Resp 20; Pulse Ox 100% ; Pain 10/10; pf1 22:30 BP 171 / 88; Pulse 99; Resp 18; Pulse Ox 98% on R/A; Pain 9/10; pf1 23:26 BP 160 / 86; Pulse 98; Resp 18; Pulse Ox 100% on R/A; Pain 9/10; pf1 20:40 Body Mass Index 42.00 (111.00 kg, 162.56 cm) pf1 20:40 Pain Scale: Adult pf1 21:30 Pain Scale: Adult pf1 22:30 Pain Scale: Adult pf1 23:26 Pain Scale: Adult pf1 ED Course: 20:38 Patient arrived in ED. pf1 20:43 Dylan Aceves MD is Attending Physician. rt 20:50 Maintain EMS IV. Dressing intact. Good blood return noted. Site clean \T\ dry. Gauge \T\ pf 1 site: [address] [place] [address]. 20:50 Patient has correct armband on for positive identification. Bed in low position. Call pf1 light in reach. Side rails up X2. 20:50 Arm band placed on. pf1 20:56 Triage completed. pf1 21:43 Ashley Alexander RN is Primary Nurse. pf1 22:27 Hip Left 2 View XRAY In Process Unspecified. EDMS 22:27 Femur Left XRAY In Process Unspecified. EDMS 22:52 Kana Dempsey MD is Hospitalizing Provider. rt 23:20 No provider procedures requiring assistance completed. Kirk cath inserted, using pf1 sterile technique, 16 Fr., by nm, balloon inflated, to gravity drainage, clamped. 23:29 Patient admitted, IV remains in place. pf1 Administered Medications: 20:50 Drug: morphine IVP or IV 4 mg Route: IVP; Infused Over: 4 mins; Site: right antecubital;pf1 21:47 Follow up: Response: No adverse reaction; Marked relief of symptoms; Pain is unchanged, pf1 physician notified 20:50 Drug: Ondansetron IVP 4 mg Route: IVP; Site: right antecubital; pf1 21:47 Follow up: Response: No adverse reaction; Marked relief of symptoms pf1 21:45 Drug: morphine IVP or IV 4 mg Route: IVP; Infused Over: 4 mins; Site: right antecubital;pf1 22:45 Follow up: Response: No adverse reaction; Marked relief of symptoms; Pain is unchanged, pf1 physician notified 22:55 Drug: Cyclobenzaprine PO 10 mg Route: PO; pf1 23:30 Follow up: Response: No adverse reaction; Marked relief of symptoms; Pain is decreased pf1 22:55 Drug: HYDROmorphone IVP 0.5 mg Route: IVP; Site: right antecubital; pf1 23:30 Follow up: Response: No adverse reaction; Marked relief of symptoms; Pain is decreased pf1 Medication: 23:28 VIS not applicable for this client. pf1 Outcome: 22:52 Decision to Hospitalize by Provider. rt 05/03 00:06 Admitted to Med/surg accompanied by nurse, via stretcher, room 210, with chart, Report pf1 called to JIGNESH Greenberg Condition: stable Instructed on the need for admit, Demonstrated understanding of instructions. 00:07 Patient left the ED. pf1 Signatures: Dispatcher [employer] EDKS Dylan Aceves MD MD rt Ashley Alexander RN RN pf1 Corrections: (The following items were deleted from the chart) 05/02 23:34 22:30 BP 171 / 88; Pulse 99bpm; Resp 18bpm; Pulse Ox 98% RA; Pain 01/03, Adult; pf1 pf1
--- NOTE | 2023-05-02 23:02 | P.HP ---
Certification for Inpatient Patient admitted to: Inpatient With expected LOS: >2 Midnights Patient will require the following post-hospital care: None Practitioner: I am a practitioner with admitting privileges, knowledge of patient current condition, hospital course, and medical plan of care. Services: Services provided to patient in accordance with Admission requirements found in Title 42 Section 412.3 of the Code of Federal Regulations Patient History Date of Service: 05/02/23 Reason for admission: Left femur fracture History of Present Illness: 67-year-old female with history of hypertension who is currently not on any medications presents emergency department chief complaint of mechanical fall with left hip pain. She was evaluated in the emergency department and found to have displaced left proximal femoral diaphysis fracture. ED physician discussed case with orthopedics will see patient in the morning. Allergies No Known Allergies Allergy (Verified 10/10/18 23:59) Home Medications: NK [No Home Meds] 10/10/18 - Past Medical/Surgical History Diabetic: No -: Hypertension -: Hysterectomy -: Appendectomy -: Right ankle surgery Psychosocial/ Personal History: Patient lives at home with family - Family History Family History: Reviewed- Non-Contributory - Social History Smoking Status: Never smoker Alcohol use: No CD- Drugs: No Caffeine use: No Place of Residence: Home Review of Systems Musculoskeletal: Leg Pain Physical Examination - Physical Exam General: Alert, In no apparent distress, Oriented x3 HEENT: Atraumatic, PERRLA, Mucous membr. moist/pink, EOMI, Sclerae nonicteric Neck: Supple, 2+ carotid pulse no bruit, No LAD, Without JVD or thyroid abnormality Respiratory: Clear to auscultation bilaterally, Normal air movement Cardiovascular: Regular rate/rhythm, Normal S1 S2 Capillary refill: <2 Seconds Gastrointestinal: Normal bowel sounds, No tenderness Musculoskeletal: No tenderness, Other (Shortening, external rotation left lower extremity) Integumentary: No rashes Neurological: Normal speech, Normal strength at 5/5 x4 extr, Normal tone, Normal affect Lymphatics: No axilla or inguinal lymphadenopathy - Studies Laboratory Data (last 24 hrs) 05/02/23 22:30: Sodium 138, Potassium 3.8, BUN 8, Creatinine 0.73, Glucose 107 H 05/02/23 22:30: WBC 10.30, Hgb 10.8 L, Hct 33.3 L, Plt Count 289 Assessment and Plan - Plan Assessment: Left proximal femoral diaphysis fracture Hypertension Plan: Left proximal femoral diaphysis fracture N.p.o., IVF, as needed pain medications, orthopedics consult in place. Will obtain basic labs, EKG. Hypertension Not on any daily medications, monitor blood pressure during hospitalization. DVT PPX: SCD Code status: Full Discharge Plan: Home Plan to discharge in: Greater than 2 days - Advance Directives Does patient have a Living Will: No Does patient have a Durable POA for Healthcare: No - Code Status/Comfort Care Code Status Assessed: Yes (Full code) Critical Care: No Time Spent Managing Pts Care (In Minutes): 55
[2023-05-02] MEDS ORDERED: HYDROMORPHONE HCL 0.5 MG/0.5 ML INJ ONE (23:04)
[2023-05-02] MEDS ORDERED: CYCLOBENZAPRINE 10 MG TAB ONE (23:04)
[2023-05-03] MEDS ORDERED: ONDANSETRON 4 MG/2 ML VIAL IV PRN (00:13)
[2023-05-03] MEDS: HYDROMORPHONE HCL 1 MG/ML INJ IV PRN ×4 (01:07→19:43)
[2023-05-03 03:04] LABS: Absolute Lymphocytes (CBC) 0.8 K/uL (0.7-4.9); Hematocrit 32.1 % (36.0-45.0); Lymphocytes % 8.5 % (15.3-44.8); MCV 91.4 fL (80-100); MPV 8.1 fL (7.6-11.3); RBC Red Blood Cell Count 3.51 M/uL (3.86-4.86)
[2023-05-03 03:10] LABS: Protime INR 0.97
[2023-05-03 05:30] VITALS: BMI 42.0
--- NOTE | 2023-05-03 06:51 | P.PN ---
Date of Service: 05/03/23 Subjective: pain remains ~unchanged needing frequent pain medication very limited ROM due to pain in left leg/femur fracture otherwise no new / worsening problems ROS: 10 point ROS as noted above, otherwise negative Physical Exam: GEN: Alert, oriented, in pain HEENT: Normal conjunctiva, sclera anicteric CV: Regular rate and rhythm, no edema Pulm: Nonlabored respirations on room air ABD: Soft, nontender, nondistended MSK: Shortening, external rotation left lower extremity Neuro: Normal speech, normal affect vitals reviewed Problem List: Left proximal femoral diaphysis fracture Hypertension Left proximal femoral diaphysis fracture Xray Femur (05/02): Displaced left proximal femoral diaphysis fracture Orthopedic Surgeon consulted likely surgery today with Dr. Wilber MCCURDY while NPO PRN pain medication Hypertension Not on any daily medications, monitor BP Denies cardiac history able to ambulate a few flights of stares without shortness of breath, no chest pain, no swelling in legs, no stroke history, denies smoking history patient is low risk for cardiac event dolores-operatively and based on history obtained and exam, does not warrant further cardiac eval pre-operatively VTE: SCD Code: Full Dispo: Home 2+ days
[2023-05-03] MEDS: D5.45NS W/KCL 20MEQ 20 MEQ/1,000 ML BAG IV SCH ×2 (07:42→20:39)
[2023-05-03] MEDS ORDERED: Ringers Lactate 1,000 ML IV ONE ×2 (08:48→10:35)
[2023-05-03] MEDS ORDERED: FENTANYL CITR 100 MCG/2 ML ONE ×2 (08:48→09:08)
[2023-05-03] MEDS ORDERED: SUCCINYLCHOLINE 20 MG/ML (10 ML) IV ONE (09:04)
[2023-05-03] MEDS: CEFAZOLIN SODIUM 2 GM/VIAL ONE ×2 (09:04→09:54)
[2023-05-03] MEDS ORDERED: propofoL 200 MG/20 ML VIAL IV ONE (09:08)
[2023-05-03] MEDS ORDERED: MIDAZOLAM HCL 2 MG/2 ML INJ ONE (09:08)
[2023-05-03] MEDS ORDERED: ROCURONIUM 50 MG/5 ML VIAL IV ONE (09:08)
[2023-05-03] MEDS ORDERED: GLYCOPYRROLATE 0.2 MG/ML SYR ONE ×2 (09:08→11:17)
[2023-05-03] MEDS: BUPIVACAINE 0.25% PF 30 ML VIAL ONE ×2 (09:55→11:14)
[2023-05-03] MEDS ORDERED: dexAMETHasone 10 MG/ML VIAL ONE (11:15)
[2023-05-03] MEDS ORDERED: ONDANSETRON 4 MG/2 ML VIAL ONE (11:15)
[2023-05-03] MEDS ORDERED: NEOSTIGMINE 1 MG/ML -10 ML VIAL ONE (11:22)
--- NOTE | 2023-05-03 11:24 | P.BOP ---
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
--- NOTE | 2023-05-03 11:37 | RAD REPORT ---
EXAM DESCRIPTION: - Hip in OR Left 2 View - 05/03/2023 11:24 am CLINICAL HISTORY: Femoral fracture FINDINGS: Compression screw and intramedullary nasir affix a left femoral fracture. Surgery performed by Dr. Merino Fifteen fluoroscopic spot images obtained. Fluoroscopy time 2.4 minutes
[2023-05-03] MEDS: HYDROMORPHONE HCL 1 MG/ML INJ ONE ×2 (11:54→11:59)
[2023-05-03] MEDS ORDERED: KETOROLAC 30 MG/ML INJ ONE (11:56)
[2023-05-03] MEDS ORDERED: ACETAMINOPHEN 325 MG TABLET PO PRN (11:56)
[2023-05-03] MEDS ORDERED: DOCUSATE NA 100 MG CAP PO PRN (11:56)
[2023-05-03] MEDS ORDERED: CEFAZOLIN SODIUM 2 GM in NA CHLORIDE 0.9% 100 ML IVPB SCH (12:00)
--- NOTE | 2023-05-03 12:46 | RAD REPORT ---
EXAM DESCRIPTION: RAD - Femur Left - 05/03/2023 12:38 pm CLINICAL HISTORY: Femoral fracture FINDINGS: Compression screw and intramedullary nasir affix a femoral fracture. Mild to moderate displa cement of fracture fragments. .
--- NOTE | 2023-05-03 13:04 | CON ---
Date of Consultation: 05/03/2023 Reason For Consultation: Left hip pain. History Of Present Illness: Ms. Cristobal is a 67-year-old female with history of hypertension, who reports a fall prior to the admission onto her left side with subsequent pain to her left hip and inability to bear weight. She was brought in the emergency room and was diagnosed with a left subtrochanteric femur fracture. Prior to the fall, the patient stated she does use assist devices to mobilize on occasion secondary to some right ankle weakness and pain from prior injury. She denies any other musculoskeletal complaints at this time. Review of Systems: As above, otherwise negative. Past Medical History: Includes hypertension. Past Surgical History: Includes hysterectomy, appendectomy, right ankle surgery. Social History: Denies tobacco, alcohol, or drug use. She lives at home. Family History: Reviewed and noncontributory. Allergies: NO KNOWN DRUG ALLERGIES. Home Medications: No home medications. Physical Examination: General: No apparent distress. HEENT: Normocephalic, atraumatic. Neck: Supple. Cardiovascular: Brisk cap refill to all digits. Chest: Nonlabored breathing. Abdomen: Nondistended. Psychiatric: Responds to exam. Musculoskeletal: Bilateral upper extremities, functional range of motion without pain. No gross deformities. No obvious dislocations. Right lower extremity functional range of motion without pain. No gross deformities. No obvious dislocations. Left lower extremity pain with range of motion of the left hip, tenderness to palpation of the left hip. No tenderness over the knee, tibia, or ankle. Sensation grossly intact to the dorsal and plantar surface of the foot. Positive EHL and FHL. Diagnostic Studies: X-rays of the left femur demonstrate a displaced subtrochanteric femur fracture. Assessment And Plan: Ms. Cristobal is a 67-year-old female with a left subtrochanteric femur fracture. Discussed with the patient and her family at length her diagnosis as well as treatment plan. I discussed with the patient risks and benefits associated with operative and nonoperative treatment. They expressed understanding. Given the fracture pattern, we will proceed with cephalomedullary fixation of the left femur fracture. We will wait for medical clearance and optimization prior to proceeding with surgery. We will plan on proceeding with surgery later today. LAINE/MODL Voice ID: [id number] Report ID: [id number] [id number]
[2023-05-03] MEDS: HYDROCODONE/APAP 7.5/325 MG TAB PO PRN (13:54)
[2023-05-03 16:05] LABS: Hematocrit 32.2 % (36.0-45.0)
[2023-05-03] MEDS: CEFAZOLIN SODIUM 2 GM in NA CHLORIDE 0.9% 100 ML IVPB SCH (16:32)
[2023-05-04] MEDS: CEFAZOLIN SODIUM 2 GM in NA CHLORIDE 0.9% 100 ML IVPB SCH ×2 (01:01→08:20)
[2023-05-04] MEDS: HYDROMORPHONE HCL 1 MG/ML INJ IV PRN ×6 (02:50→21:04)
[2023-05-04] MEDS: D5.45NS W/KCL 20MEQ 20 MEQ/1,000 ML BAG IV SCH (02:50)
[2023-05-04 03:05] LABS: Hematocrit 23.9 % (36.0-45.0); Lymphocytes % 10.4 % (15.3-44.8); MCV 91.5 fL (80-100); MPV 8.2 fL (7.6-11.3); RBC Red Blood Cell Count 2.61 M/uL (3.86-4.86)
[2023-05-04 03:23] LABS: Potassium 4.2 mEq/L (3.5-5.1)
--- NOTE | 2023-05-04 07:19 | P.PN ---
Date of Service: 05/04/23 Subjective: Feeling a little better after surgery needing frequent pain medications; feels like its taking the edge off leg pain slowly improving difficulty ambulating due to old right leg injury / surgery no new / worsening problems ROS: 10 point ROS as noted above, otherwise negative Physical Exam: GEN: Alert, oriented, in pain HEENT: Normal conjunctiva, sclera anicteric CV: Regular rate and rhythm, no edema Pulm: Nonlabored respirations on room air ABD: Soft, nontender, nondistended MSK: LLE: dressing with minimal serosanguinous drainage Neuro: Normal speech, normal affect vitals reviewed Problem List: Left proximal femoral diaphysis fracture, s/p IMN left femur fracture (05/03) Hypertension Left proximal femoral diaphysis fracture, s/p IMN left femur fracture (05/03) Xray Femur (05/02): Displaced left proximal femoral diaphysis fracture Orthopedic Surgeon consulted s/p IMN left femur fracture with Dr. Merino (05/03) Monitor H&H. Transfuse if hgb < 7 PRN pain medication wean IV pain meds as tolerated davon chowdary in AM PT consulted pt and state should be fine going home once improved Hypertension Not on any daily medications, monitor BP VTE: Lovenox Code: Full Dispo: Home with Home health ss/cm consulted patient and state prefer going home, and will have enough support
[2023-05-04] MEDS ORDERED: ENOXAPARIN 40 MG/0.4 ML SQ SCH (09:00)
--- NOTE | 2023-05-04 10:00 | P.PN ---
Subjective Date of Service: 05/04/23 Chief Complaint: s/p IMN left femur Subjective: Working w/ PT pain improving Physical Examination - Vital Signs Temperature: 97.5 F Blood Pressure: 124/74 Pulse: 91 Respirations: 18 Pulse Ox (%): 96 - Physical Exam General: Alert, In no apparent distress Musculoskeletal: Other (LLE: dressing with minimal sanguinous drainage; +EHL/FHL/GSC/TA; sensation grossly intact distally) Assessment And Plan - Plan Chelsea is a 67 yo female s/p IMN left femur fracture POD #1 -PT to mobilize; TDWB LLE -acute expected postoperative blood loss anemia; continue to monitor h/h -lovenox for DVT prophylaxis -await IPR eval
[2023-05-04] MEDS: HYDROCODONE/APAP 7.5/325 MG TAB PO PRN ×2 (17:00→22:11)
[2023-05-05] MEDS: HYDROMORPHONE HCL 1 MG/ML INJ IV PRN ×6 (00:31→20:59)
[2023-05-05] MEDS: HYDROCODONE/APAP 7.5/325 MG TAB PO PRN ×3 (02:37→22:25)
[2023-05-05 03:35] LABS: Absolute Lymphocytes (CBC) 2.6 K/uL (0.7-4.9); Hematocrit 20.8 % (36.0-45.0); Lymphocytes % 22.7 % (15.3-44.8); MPV 8.6 fL (7.6-11.3); RBC Red Blood Cell Count 2.26 M/uL (3.86-4.86)
[2023-05-05 04:04] LABS: Potassium 4.2 mEq/L (3.5-5.1)
[2023-05-05 05:07] LABS: Blood Morphology Comment NOTED (NOT SEEN); Ovalocytes 3+; Platelet Estimate ADEQ; White Blood Cell Scan OK (OK)
[2023-05-05] MEDS ORDERED: NA CHLORIDE 0.9% 250 ML IV SCH (06:00)
--- NOTE | 2023-05-05 06:51 | P.PN ---
Date of Service: 05/05/23 Subjective: pain in L hip/thjgh, but also reports physical activity limited due to prior injury of R ankle hgb down this AM, no blood in urine/stool, denies worsening swelling of L thigh 1uPRBC ordered ROS: 10 point ROS as noted above, otherwise negative Physical Exam: GEN: Alert, oriented, in pain HEENT: Normal conjunctiva, sclera anicteric CV: Regular rate and rhythm, no edema Pulm: Nonlabored respirations on room air ABD: Soft, nontender, nondistended MSK: LLE: dressing with minimal serosanguinous drainage, slight swelling in area Neuro: Normal speech, normal affect vitals reviewed Problem List: Left proximal femoral diaphysis fracture, s/p IMN left femur fracture (05/03) acute blood loss anemia, on chronic anemia Hypertension Left proximal femoral diaphysis fracture, s/p IMN left femur fracture (05/03) Xray Femur (05/02): Displaced left proximal femoral diaphysis fracture Orthopedic Surgeon consulted s/p IMN left femur fracture with Dr. Merino (05/03) Hgb 8.1 -> 6.8 (05/05) 1 uPRBC ordered. repeat H&H post transfusion no obvious bleed; some expected from surgery, possible small hematoma in area, nothing obvious monitor closely repeat h/h this PM davon chowdary PT consulted Hypertension Not on any daily medications, monitor BP VTE: Lovenox - held 05/05 due to drop in hgb Code: Full Dispo: ss/cm consulted patient and state prefer going home, and will have enough support weak, limited by prior injury and surgical pain discussed SNF/rehab /home health today
--- NOTE | 2023-05-05 15:01 | OP ---
Date of Procedure: 05/03/2023 Surgeon: Amado Merino MD Preoperative Diagnosis: Left subtrochanteric femur fracture. Postoperative Diagnosis: Left subtrochanteric femur fracture. Procedure Performed: Cephalomedullary fixation of left subtrochanteric femur fracture. Anesthesia: General endotracheal. Fluids: Per Anesthesia record. Estimated Blood Loss: 150 cc. Complications: None. Implants: 125 degree, 9 x 360 mm Biomet Affixus nail, 85 mm lag screw. Indication For Procedure: Chelsea is a 67-year-old female, who presented to the emergency room with __ pain and inability to bear weight, imaging demonstrated a left subtrochanteric femur fractur e. Discussed with the patient at length risks and benefits associated with operative and nonoperativ e treatment. She expressed understanding and elected to proceed with operative treatment. Description Of Procedure: After informed consent was obtained, the patient was identified in the pre operative holding area. The left lower extremity was marked. The patient was brought back to the op erating room, transferred to the operating table in supine fashion, placed under general endotracheal anesthesia. She was placed on the fracture table with her extremities well padded and gentle tracti on was placed on the left lower extremity and closed reduction was obtained as well as some flexion o f the proximal fragment and used to help reduce the distal fragment to the proximal fragme nt. Once adequate reduction was obtained, the left lower extremity was then prepped and draped in th e usual sterile fashion. A time-out was initiated. Correct patient and procedure were confirmed and identified. The patient received preoperative prophylactic antibiotics. The patient had increased soft tissue secondary to her morbid obesity, which made the case more difficult. A large incision wa s made approximately 10 cm in length proximal to the greater trochanter. A guide pin was then placed in the tip of the greater trochanter down the femoral canal in an antegrade fashion. Proper positio randall was confirmed using fluoroscopy. An entry reamer was then placed over the guide pin. A ball-ti p guidewire was then placed down the proximal segment into the distal fragment and the length of the nail was selected nail was selected. Next, over the guidewire, the femoral canal was ream ed starting with an 8 mm reamer reviewed and a 9 x 360 mm nail was placed with 125 degrees lag screw. Once the nail was placed with good overall reduction of the fracture, a 6 cm incision wa s made over the lateral thigh for placement of the lag screw and a size 85 mm lag screw was placed. Fluoroscopy was then used with overall good maintenance reduction of the fracture. Tracti on was then released and using perfect mentasta technique, a single distal interlocking screw was place d in the nail. The wounds were then irrigated thoroughly with normal saline. Subcutaneous deep tiss ue was approximated using 0 Vicryl. Subcutaneous tissue was approximated using 2-0 Vicryl. Skin was approximated using cristobal. Sterile dressings were applied. The patient was awakened and transferr ed to PACU in stable condition. Postoperative Plan: The patient will be touchdown weightbearing of her left lower extremity over the next 6-8 weeks and follow up in clinic in 2-3 weeks for wound check and sutures removal. LAINE/MODL Voice ID: [id number] Report ID: [id number]
[2023-05-05 15:15] LABS: Hematocrit 27.3 % (36.0-45.0)
--- NOTE | 2023-05-05 17:17 | EKG ---
Test Date: 2023-05-02 Test Time: 23:08:09 Hand Stitcher: KATYA MEASUREMENT RESULTS: Intervals: Rate: 96 OK: 176 QRSD: 74 QT: 338 QTc: 427 Beacon: P: 53 OK: 176 QRS: -2 T: 32 INTERPRETIVE STATEMENTS: Normal sinus rhythm Moderate voltage criteria for LVH, may be normal variant Borderline ECG Compared to ECG 11/25/2020 03:28:34 No significant changes Electronically Signed On 05-05-23 17:14:00 CDT by Davon Linton
--- NOTE | 2023-05-05 20:22 | P.PN ---
Date of Service: 05/06/23 Subjective: Patient continues to do well with no new complaints. She is not participating as well with physical therapy as she needs to be. ROS: 10 point ROS as noted above, otherwise negative Vitals Reviewed Physical Exam: GEN: Alert, oriented, in pain CV: Regular rate and rhythm, no edema Pulm: Nonlabored respirations on room air ABD: Soft, nontender, nondistended MSK: LLE: Increased range of motion Neuro: Normal speech, normal affect Assessment 1. Left proximal femoral diaphysis fracture, s/p IMN left femur fracture (05/03) 2. acute blood loss anemia, on chronic anemia 3. Hypertension Plan 1. Continue with physical therapy 2. Monitor H&H 3. Strict blood pressure control 4. Pain control 5. DVT prophylaxis 6. GI DVT prophylaxis
--- NOTE | 2023-05-05 21:35 | P.PN ---
Subjective Date of Service: 05/05/23 Chief Complaint: s/p IMN left femur pain improving; getting transfusion today Physical Examination - Vital Signs Temperature: 97.4 F Blood Pressure: 135/64 Pulse: 88 Respirations: 16 Pulse Ox (%): 96 - Physical Exam General: Alert, In no apparent distress Musculoskeletal: Other (LLE: dressing with mild sanguinous drainage; mild swelling of left thigh; +EHL/FHL/GSC/TA; sensation grossly intact distally) Assessment And Plan - Plan Chelsea is a 67 yo female s/p IMN left femur fracture POD #2 -PT to mobilize; TDWB LLE -acute expected postoperative blood loss anemia; transfusion today -lovenox for DVT prophylaxis; held today with anemia -await IPR eval
[2023-05-06] MEDS: HYDROMORPHONE HCL 1 MG/ML INJ IV PRN ×7 (00:53→22:43)
[2023-05-06] MEDS: HYDROCODONE/APAP 7.5/325 MG TAB PO PRN ×5 (02:34→21:24)
[2023-05-06 03:45] LABS: Hematocrit 24.6 % (36.0-45.0); MCV 94.9 fL (80-100); MPV 10.3 fL (7.6-11.3); RBC Red Blood Cell Count 2.59 M/uL (3.86-4.86)
[2023-05-06 03:53] LABS: Magnesium 2.2 mg/dL (1.6-2.4); Potassium 4.2 mEq/L (3.5-5.1)
--- NOTE | 2023-05-06 22:19 | P.PN ---
Subjective Date of Service: 05/06/23 Chief Complaint: s/p IMN left femur Subjective: Working w/ PT pain controlled Physical Examination - Vital Signs Temperature: 97.2 F Blood Pressure: 118/75 Pulse: 97 Respirations: 17 Pulse Ox (%): 97 - Physical Exam General: Alert, In no apparent distress Musculoskeletal: Other (LLE: mild sanguinous drainage over dressing; mild swelling of thigh; +EHL/FHL; sensation grossly intact distally) Assessment And Plan - Plan Chelsea is a 67 yo female s/p IMN left femur fracture POD #3 -PT to mobilize; TDWB LLE -acute expected postoperative blood loss anemia; h/h responded; continue to monitor -lovenox for DVT prophylaxis; held today with anemia -await IPR eval
[2023-05-07] MEDS: HYDROMORPHONE HCL 1 MG/ML INJ IV PRN ×4 (02:29→11:38)
[2023-05-07 06:34] LABS: Absolute Lymphocytes (CBC) 1.9 K/uL (0.7-4.9); Hematocrit 26.5 % (36.0-45.0); MCV 94.7 fL (80-100); MPV 7.9 fL (7.6-11.3); RBC Red Blood Cell Count 2.79 M/uL (3.86-4.86)
[2023-05-07 06:44] LABS: Potassium 3.8 mEq/L (3.5-5.1)
[2023-05-07] MEDS ORDERED: POTASSIUM CL SA 10 MEQ TAB PO ONE (09:00)
[2023-05-07] MEDS: HYDROCODONE/APAP 7.5/325 MG TAB PO PRN ×3 (10:08→20:20)
[2023-05-07] MEDS: ENOXAPARIN 40 MG/0.4 ML SQ SCH (17:01)
[2023-05-07] MEDS: TRAMADOL HCL 50 MG TAB PO PRN ×2 (17:50→23:11)
[2023-05-08] MEDS: HYDROCODONE/APAP 7.5/325 MG TAB PO PRN ×3 (02:33→18:32)
[2023-05-08 04:06] LABS: Potassium 3.8 mEq/L (3.5-5.1)
[2023-05-08] MEDS: TRAMADOL HCL 50 MG TAB PO PRN ×2 (08:25→17:43)
[2023-05-08] MEDS ORDERED: POTASSIUM CL SA 10 MEQ TAB PO ONE (09:00)
[2023-05-08] MEDS: MORPHINE 2 MG/ML SYR IV PRN (14:39)
[2023-05-08] MEDS: ENOXAPARIN 40 MG/0.4 ML SQ SCH (17:35)
[2023-05-08] MEDS: CYCLOBENZAPRINE 10 MG TAB PO PRN (20:47)
[2023-05-09] MEDS: HYDROCODONE/APAP 7.5/325 MG TAB PO PRN ×2 (01:24→08:50)
[2023-05-09] MEDS: MORPHINE 2 MG/ML SYR IV PRN (02:32)
[2023-05-09 03:59] LABS: Potassium 3.7 mEq/L (3.5-5.1)
[2023-05-09] MEDS: TRAMADOL HCL 50 MG TAB PO PRN ×2 (05:58→12:52)
[2023-05-09] MEDS: CYCLOBENZAPRINE 10 MG TAB PO PRN (07:40)
[2023-05-09 08:28] VITALS: O2SAT 97
[2023-05-09 08:55] VITALS: BP 113/76; TEMP 97.3
[2023-05-09] MEDS ORDERED: POTASSIUM CL SA 10 MEQ TAB PO ONE (09:00)
--- NOTE | 2023-05-09 09:28 | P.PN ---
Date of Service: 05/07/23 Subjective: Patient denies any new complaints. Encouraged her to keep ambulating with physical therapy. Spoke with family about swing bed placement Vitals Reviewed Physical Exam: GEN: Alert, oriented, in pain CV: Regular rate and rhythm, no edema Pulm: Nonlabored respirations on room air ABD: Soft, nontender, nondistended MSK: LLE: Increased range of motion Neuro: Weakness of the left lower extremity; no focal deficits Assessment 1. Left proximal femoral diaphysis fracture, s/p IMN left femur fracture (05/03) 2. Acute blood loss anemia, on chronic anemia 3. Hypertension Plan 1. Continue with physical therapy 2. Monitor H&H 3. Strict blood pressure control 4. Pain control 5. DVT prophylaxis 6. Pending placement to swing bed 7. GI DVT prophylaxis
--- NOTE | 2023-05-09 09:29 | P.PN ---
Date of Service: 05/08/23 Subjective: Patient is doing well with no new complaints. Patient denies any clinical complaints. She just wants more pain medication. Working on swing bed placement at this time. Vitals Reviewed Physical Exam: GEN: Alert, oriented, in pain CV: Regular rate and rhythm, no edema Pulm: Nonlabored respirations on room air ABD: Soft, nontender, nondistended MSK: LLE: Increased range of motion Neuro: Weakness of the left lower extremity; no focal deficits Assessment 1. Left proximal femoral diaphysis fracture, s/p IMN left femur fracture (05/03) 2. Acute blood loss anemia, on chronic anemia 3. Hypertension Plan 1. Continue with physical therapy 2. Monitor H&H 3. Strict blood pressure control 4. Pain control 5. DVT prophylaxis 6. Pending placement to swing bed 7. GI DVT prophylaxis
== END 2023-05-09 15:13 | DRG 481 ==
LOC: ER 20:29 → 2ND 22:48
PROVIDERS: ADMIT Hospitalist; ATTEND Hospitalist
PROC: 0QH734Z Insertion of Internal Fixation Device into Left Upper Femur, Percutaneous Approach (ICD-10-PCS; principal; 2023-05-03 09:00)
PROC: 30233N1 Transfusion of Nonautologous Red Blood Cells into Peripheral Vein, Percutaneous Approach (ICD-10-PCS; 2023-05-05)
DX: S72.22XA Displaced subtrochanteric fracture of left femur, initial encounter for closed fracture (principal); D62 Acute posthemorrhagic anemia; Z68.41 Body mass index [BMI] 40.0-44.9, adult; E66.01 Morbid (severe) obesity due to excess calories; I10 Essential (primary) hypertension; Z90.49 Acquired absence of other specified parts of digestive tract; Z90.710 Acquired absence of both cervix and uterus; Z28.310 Unvaccinated for COVID-19; W01.0XXA Fall on same level from slipping, tripping and stumbling without subsequent striking against object, initial encounter; Y93.9 Activity, unspecified; Y92.9 Unspecified place or not applicable; Y99.9 Unspecified external cause status
CPT/HCPCS: 36415; 51702; 80048; 83735; 85014; 85018; 85025; 85027; 85610; 85730; 86850; 86900; 86901; 86920; 93005; 94010; 96374; 96375; 97110; 97116; 97161; 97165; 97530; 99285; J1100; J1170; J1650; J2250; J2270; J2405; J2704; J2710; J3010; J7050; J7120; P9016

== ENCOUNTER 2024-03-05 22:21 | Emergency (ER) | payer MEDICARE, OTHER ==
--- OUTSIDE RECORDS SUMMARY | 2024-03-05 22:24 | XMS REPORT | Continuity of Care Document ---
Author Name Unknown Address [address] [facility] [address] [place] [address] [facility] thconnect Address [address] [facility] [address] [place] [address] Care Team Providers Care Film Recordist Name Role Phone Aracelis Schaefer Primary Care Physician OSCAR KWOK Attending Clinician Peng Kwok MD, Oscar Black Attending Clinician Doctor Unassigned, [place] Attending Clinician U navailable ÁNGEL Attending Clinician Unavailable ÁNGEL Admitting Clinician Unavailable Payers Payer Name Policy Type Policy Number Effective Date Expirati on Date Source [employer] (MEDICARE REPLACEMENT HMO) [id number] 2023 00:00:00 Problems Condition Name Condition Details Condition Category Status Onset Date Resolution Date Last Treatment Date Treating Clinician Comments Source Leg pain Leg pain Disease Active 04-13 00:00: 00 [facility] Encounter for long-term (current) use of other medication s Encounter for long-term (current) use of other medication s Disease Active 04-13 00:00: 00 [facility] Chronic pain syndrome Chronic pain syndrome Disease Active 04-13 00:00: 00 [facility] Distal tib/fib fx Distal tib/fib fx Disease Active 11-20 00:00: 00 [facility] Seizure disorder Seizure disorder Disease Active 11-20 00:00: 00 [facility] Allergies, Adverse Reactions, Alerts Allergy Name Allergy Type Status Severity Reaction(s) Onset Date Inactive Date Treating Clinician Comments Source Prochlor perazine Propensi ty to adverse reaction s Active Other - See comments 11-26 00:00: 00 + lock jaw [facility] PROCHLOR PERAZINE DRUG INGREDI Active Other-Cmnt 11-26 00:00: 00 [facility] Ibuprofe n Propensi ty to adverse reaction s Active Swelling 11-20 00:00: 00 [facility] IBUPROFE N DRUG INGREDI Active Swelling 11-20 00:00: 00 [facility] Social History Social Habit Start Date Stop Date Quantity Comments Source [facility] function 2023-10-08 00:00:00 2023-10-08 00:00:00 [facility] Alcohol intake 2023-09-30 00:00:00 2023-09-30 00:00:00 [facility] Tobacco use and exposure 2012-02-27 00:00:00 2012-02-27 00:00:[address] non-user [facility] Sex Assigned At 1955 00:00:00 1955 00:00:00 [facility] Smoking Status Start Date Stop Date Source Never smoked tobacco [facility] Medications Ordered Medication Name Filled Medication Name Start Date Stop Date Current Medication? Ordering Clinician Indication Dosage Frequency Signature (SIG) Comments Components Source CELECOXIB (CELEBREX ORAL) 2022-10 14:46: 57 09-30 00:00 :00 No Take by mouth daily. [facility] phenytoin Extended (DILANTIN EXTENDED) 100 mg capsule 2022-10 14:46: 57 09-30 00:00 :00 No 100mg Take 100 mg by mouth 2 (two) times daily. [facility] gabapentin 300 mg capsule 2022-10 00:00: 00 Yes [id number] 300mg Take 1 capsule by mouth in the morning and 1 capsule at noon and 1 capsule in the evening. [facility] celecoxib (CELEBREX) 100 mg capsule 2022-10 00:00: 00 02-27 04:59 :00 No [id number] 200mg Take 2 capsules by mouth in the morning for 150 days. Take with meals [facility] tiZANidine 2 mg tablet 2022-10 00:00: 02-27 04:59 :00 No [id number] 2mg Take 1 tablet by mouth 3 (three) times daily as needed for Pain (scale 1-3) for up to 150 days. [facility] misoprostol (CYTOTEC) 200 mcg tablet 03-28 00:00: 00 Yes 200ug Take 1 Tab by mouth 3 (three) times daily with meals. [facility] gabapentin (NEURONTIN) 300 mg capsule 03-28 00:00: 09-30 00:00 :00 No 300mg Take 1 Cap by mouth 3 (three) times daily. [facility] diclofenac (VOLTAREN) 50 mg EC tablet 03-28 00:00: 09-30 00:00 :00 No 50mg Take 1 Tab by mouth 3 (three) times daily with meals. [facility] Diclofenac Sodium (VOLTAREN) 1 % Gel 03-28 00:00: 00 09-30 00:00 :00 No Apply to area(s) every 6 (six) hours. [facility] acetaminoph en-codeine (TYLENOL #3) 300-30 mg tablet 07-26 00:00: 00 Yes 1{tbl} Take 1 Tab by mouth every 12 (twelve) hours as needed for Pain unrelieved by non-narcot ic analgesics . [facility] acetaminoph en-codeine (TYLENOL #3) 300-30 mg tablet 02-22 00:00: 00 Yes [id number] 1{tbl} Take 1 Tab by mouth every 12 (twelve) hours as needed for Pain. [facility] gabapentin (NEURONTIN) 600 mg tablet 2012-10 015 00:00: 00 09-30 00:00 :00 No [id number] 900mg Take 1.5 Tabs by mouth 3 (three) times daily. [facility] lisinopril (PRINIVIL,Z ESTRIL) 10 mg tablet 2012-10 009 00:00: 00 Yes as needed. [facility] Diclofenac Sodium (VOLTAREN) 1 % Gel 06-22 00:00: 00 09-30 00:00 :00 No [id number] Apply to area(s) 4 (four) times daily. [facility] methocarbam ol (ROBAXIN) 500 mg tablet 04-13 00:00: 00 Yes 500mg Take 1 Tab by mouth 4 (four) times daily. [facility] tizanidine (ZANAFLEX) 2 mg capsule 01-19 00:00: 00 Yes [id number] 2mg Take 1 Cap by mouth 3 (three) times daily. [facility] cephALEXin (KEFLEX) 500 mg capsule 12-12 00:00: 00 Yes 500mg Take 1 Cap by mouth 4 (four) times daily. [facility] docusate (COLACE) 100 mg capsule 12-12 00:00: 00 Yes 100mg Take 1 Cap by mouth daily. [facility] ondansetron (ZOFRAN) 8 mg tablet 12-12 00:00: 00 Yes 8mg Take 1 Tab by mouth every 8 (eight) hours as needed for Nausea and Vomiting. [facility] phenytoin Extended (DILANTIN) 300 mg ER capsule 11-23 00:00: 00 09-30 00:00 :00 No 300mg Take 1 Cap by mouth at bedtime. [facility] Vital Signs Vital Name Observation Time Observation Value Comments S ource Systolic blood pressure 2023-09-30 19:29:00 165 mm[Hg] Pt in severe pain, no symptoms [facility] Diastolic blood pressure 2023-09-30 19:29:00 81 mm[Hg] Pt in severe pain, no symptoms [facility] Heart rate 2023-09-30 19:29:00 51 /min [facility] Respiratory rate 2023-09-30 19:29:00 12 /min [facility] Body height 2023-09-30 19:29:[address] [facility] Body weight 2023-09-30 19:29:[address] [facility] BMI 2023-09-30 19:29:00 34.50 kg/m2 [facility] Oxygen saturation in Arterial blood by Pulse oximetry 2023-09-30 19:29:00 94 /min [facility] Procedures Procedure Date / Time Performed Performing Clinicia n Source PATIENT QUESTIONNAIRE 2023-09-30 06:01:00 Doctor Unassigned, [place] [facility] Encounters Start Date/Time End Date/Time Encounter Type Admission Type Attending Clinicians Care Facility Care Department Encounter ID Source 2023-09-30 13:30:00 2023-09-30 14:50:34 Office Visit Oscar Kwok [facility] 1..840.114 [id number] [facility] 2023-09-30 13:30:00 2023-09-30 14:50:34 Outpatient R OSCAR KWOK [facility] [id number] [facility] 2023-09-30 00:00:00 2023-09-30 00:00:00 Orders Only Doctor Unassigned, [place] [facility] 1..840.114 [id number] [facility] 2023-08-21 00:00:00 2023-08-21 00:00:00 Outpatient DMG DMG [id number] [facility] 2023-03-28 00:00:00 2023-03-28 00:00:00 Outpatient DMG DMG [id number] [facility] 2022-12-18 13:49:50 2022-12-18 13:49:50 Outpatient [facility] [id number] Curry Sanz 2022-05-08 10:57:00 2022-05-08 10:57:00 Outpatient [facility] [id number]
[2024-03-05] MEDS ORDERED: KETOROLAC 30 MG/ML INJ ONE (23:21)
[2024-03-05] MEDS ORDERED: ACETAMINOPHEN 500 MG TAB ONE (23:21)
[2024-03-05] MEDS ORDERED: DIPHENHYDRAMINE 50 MG/ML VIAL ONE (23:21)
[2024-03-05] MEDS ORDERED: NA CHLORIDE 0.9% 1,000 ML ONE (23:22)
[2024-03-05] MEDS ORDERED: METOCLOPRAMIDE 10 MG/2mL INJ ONE (23:22)
--- NOTE | 2024-03-06 00:28 | EDPHYS ---
Physician Documentation [facility] Name: Chelsea Cristobal Age: 68 yrs Sex: Female : 1955 Arrival Date: 03/05/2024 Time: 22:21 Bed 15 Private MD: ED Physician Dylan Aceves HPI: 03/06 02:14 This 68 yrs old Black Female presents to ER via Wheelchair with complaints of Migraine. rt 02:14 Patient presents to the ED with bitemporal pain. This consistent with previous episodes rt of migraine. Has been present for about 2 days. Excedrin has not adequately relieved the symptoms. Reports photophobia no phonophobia as well as nausea. Denies other acute complaints, symptoms are moderate in severity, no other aggravating or alleviating factors.. Historical: - Allergies: 03/05 22:45 Compazine; pf1 - PMHx: 22:45 Hypertension; pf1 22:46 Migraine; pf1 - PSHx: 22:45 Appendectomy; right ankle surgery; pf1 22:46 left hip; pf1 - Immunization history:: Adult Immunizations not up to date, Client reports receiving the 1st dose of the Covid vaccine, Last tetanus immunization: > 10 years ago Flu vaccine is not up to date. - Infectious Disease History:: Denies. - Social history:: Smoking status: Patient denies any tobacco usage or history of. Patient/guardian denies using alcohol, street drugs. - Family history:: not pertinent. ROS: 03/06 02:14 Constitutional: Negative for fever, chills, and weight loss, Cardiovascular: Negative rt for chest pain, palpitations, and edema, Respiratory: Negative for shortness of breath, cough, wheezing, and pleuritic chest pain, MS/Extremity: Negative for injury and deformity, Skin: Negative for injury, rash, and discoloration, Abdomen/GI: Positive for nausea, Negative for abdominal pain, vomiting, Neuro: Positive for headache, Negative for altered mental status, Exam: 02:14 Constitutional: This is a well developed, well nourished patient who is awake, alert, rt and in no acute distress. Head/Face: Normocephalic, atraumatic. Chest/axilla: Normal chest wall appearance and motion. Nontender with no deformity. No lesions are appreciated. Cardiovascular: Regular rate and rhythm with a normal S1 and S2. No gallops, murmurs, or rubs. Normal PMI, no JVD. No pulse deficits. Respiratory: Lungs have equal breath sounds bilaterally, clear to auscultation and percussion. No rales, rhonchi or wheezes noted. No increased work of breathing, no retractions or nasal flaring. Abdomen/GI: Soft, non-tender, with normal bowel sounds. No distension or tympany. No guarding or rebound. No evidence of tenderness throughout. Skin: Warm, dry with normal turgor. Normal color with no rashes, no lesions, and no evidence of cellulitis. 02:14 Neuro: Speech normal, cranial nerves II through XII intact, strength and sensation intact in upper and lower extremities, Vital Signs: 03/05 22:44 BP 155 / 84; Pulse 73; Resp 16; Temp 97.6; Pulse Ox 100% on R/A; Weight 106.59 kg; pf1 Height 5 ft. 4 in. ; Pain 9/; 23:15 BP 142 / 100; Pulse 78; Resp 17; Pulse Ox 97% on R/A; me1 23:45 BP 153 / 89; Pulse 89; Resp 16; Pulse Ox 97% on R/A; me1 03/06 00:30 BP 149 / 85; Pulse 85; Resp 16; Temp 97.9; Pulse Ox 100% on R/A; Pain /10; pf1 03/05 22:44 Body Mass Index 40.34 (106.59 kg, 162.56 cm) pf1 03/05 22:44 Pain Scale: Adult pf1 03/06 00:30 Pain Scale: Adult pf1 MDM: 03/05 23:04 Patient medically screened. rt 03/06 02:14 Differential Diagnosis Migraine, intracranial hemorrhage. Data reviewed: vital signs, rt nurses notes, radiologic studies. I considered the following discharge prescriptions or medication management in the emergency department Medications were administered in the Emergency Department. See MAR. Independent interpretation of the following test(s) in the Emergency Department CT Scan: My interpretation is No intracranial hemorrhage seen on my interpretation of CT scan images. Care significantly affected by the following chronic conditions: Hypertension. Counseling: I had a detailed discussion with the patient and/or guardian regarding the historical points, exam findings, and any diagnostic results supporting the discharge/admit diagnosis, radiology results, the need for outpatient follow up, to return to the emergency department if symptoms worsen or persist or if there are any questions or concerns that arise at home. Response to treatment: the patient's symptoms have resolved after treatment. 03/05 23:09 Order name: CT Head Brain wo Cont rt Administered Medications: 03/05 23:30 Drug: NS 0.9% IV 1000 ml IV at 1 bolus Per protocol; 1000 mL bolus Route: IV; Rate: 1 me1 bolus; Site: right forearm; 03/06 00:14 Follow up: Response: No adverse reaction; Marked relief of symptoms pf1 00:30 Follow up: IV Status: Completed infusion; IV Intake: 1000ml pf1 03/05 23:30 Drug: Ketorolac IVP 15 mg IVP once Route: IVP; Site: right forearm; [facility] [place] 03/06 00:13 Follow up: Response: No adverse reaction; Marked relief of symptoms pf1 03/05 23:31 Drug: Acetaminophen PO 1000 mg PO once Route: PO; [facility] [place] 03/06 00:13 Follow up: Response: No adverse reaction; Marked relief of symptoms; Pain is decreased pf1 03/05 23:31 Drug: metoCLOPramide IVP 10 mg IVP once; over 1 to 2 minutes Route: IVP; Site: right [facility] [place] forearm; 03/06 00:13 Follow up: Response: No adverse reaction; Marked relief of symptoms; Pain is decreased pf1 03/05 23:31 Drug: diphenhydrAMINE IVP 25 mg IVP once Route: IVP; Site: right forearm; [facility] [place] 03/06 00:12 Follow up: Response: No adverse reaction; Marked relief of symptoms; Pain is decreased pf1 Disposition Summary: 03/06/24 00:28 Discharge Ordered Notes: Location: Home rt Problem: new rt Symptoms: are resolved rt Condition: Stable rt Diagnosis - Headache rt Followup: rt - With: Private Physician - When: 2 - 3 days - Reason: Discharge Instructions: - Discharge Summary Sheet rt - General Headache Without Cause rt Forms: - Medication Reconciliation Form rt - Antibiotic Education rt - Prescription Opioid Use rt - Patient Portal Instructions rt - Leadership Thank You Letter rt Prescriptions: - Reglan 10 mg Oral Tablet - take 1 tablet ORAL route every 6 hours take 30 minutes before meals and at rt bedtime; 20 tablet; Refills: 0, Product Selection Permitted Signatures: Dispatcher [employer] Dylan Frazier MD MD rt Ashley Alexander RN RN pf1 Kay Marks RN RN me1
--- NOTE | 2024-03-06 00:28 | ER ---
Nurse's Notes [facility] Name: Chelsea Cristobal Age: 68 yrs Sex: Female : 1955 Arrival Date: 03/05/2024 Time: 22:21 Bed 15 Private MD: Diagnosis: Headache Presentation: 03/05 22:44 Chief complaint: Patient states: bilateral temporal pain of 9,onset 2 days. Patient pf1 stated took Excedrin x 2 tablets at 1700. Coronavirus screen: Vaccine status: Patient reports receiving the 1st dose of the Covid vaccine. Client denies travel out of the [place] in the last 14 days. At this time, the client does not indicate any symptoms associated with coronavirus-19. Ebola Screen: Patient negative for fever greater than or equal to 101.5 degrees Fahrenheit, and additional compatible Ebola Virus Disease symptoms. Initial Sepsis Screen: Does the patient meet any 2 criteria? No. Patient's initial sepsis screen is negative. Does the patient have a suspected source of infection? No. Patient's initial sepsis screen is negative. Risk Assessment: Do you want to hurt yourself or someone else? Patient reports no desire to harm self or others. Onset of symptoms was March 03, 2024. 22:44 Method Of Arrival: Wheelchair pf1 22:44 Acuity: INDIO 3 pf1 Triage Assessment: 22:47 General: Appears in no apparent distress. comfortable, well groomed, well developed, pf1 Behavior is calm, cooperative, appropriate for age, quiet. Pain: Complains of pain in headache Pain currently is 9 out of 10 on a pain scale. Pain began 2-3 days ago. Neuro: Level of Consciousness is awake, alert, obeys commands, Oriented to person, place, time, situation. Historical: - Allergies: 22:45 Compazine; pf1 - PMHx: 22:45 Hypertension; pf1 22:46 Migraine; pf1 - PSHx: 22:45 Appendectomy; right ankle surgery; pf1 22:46 left hip; pf1 - Immunization history:: Adult Immunizations not up to date, Client reports receiving the 1st dose of the Covid vaccine, Last tetanus immunization: > 10 years ago Flu vaccine is not up to date. - Infectious Disease History:: Denies. - Social history:: Smoking status: Patient denies any tobacco usage or history of. Patient/guardian denies using alcohol, street drugs. - Family history:: not pertinent. Screenin:00 [facility] ED Fall Risk Assessment (Adult) History of falling in the last 3 months, me1 including since admission No falls in past 3 months (0 pts) Confusion or Disorientation No (0 pts) Intoxicated or Sedated No (0 pts) Impaired Gait No (0 pts) Mobility Assist Device Used No (0 pt) Altered Elimination No (0 pt) Score/Fall Risk Level 0 - 2 = Low Risk Maintained a safe environment, Provided non-skid footwear, Hourly rounding (assess needs \T\ fall precautionary measures) done. Abuse screen: Denies threats or abuse. Nutritional screening: No deficits noted. Tuberculosis screening: No symptoms or risk factors identified. Assessment: 22:57 General: Appears uncomfortable, well groomed, well developed, well nourished, Behavior me1 is calm, cooperative, appropriate for age, Reports bilateral temporal pain of 9,onset 2 days. Patient stated took Excedrin x 2 tablets at 1700. Pain: Complains of pain in head Pain does not radiate. Pain currently is 9 out of 10 on a pain scale. Quality of pain is described as aching, sharp, Pain began 2-3 days ago. Is continuous. Neuro: Level of Consciousness is awake, alert, obeys commands, Oriented to person, place, time, situation, Appropriate for age. Cardiovascular: Capillary refill < 3 seconds Patient's skin is warm and dry. Respiratory: Airway is patent Respiratory effort is even, unlabored. GI: No signs and/or symptoms were reported involving the gastrointestinal system. : No signs and/or symptoms were reported regarding the genitourinary system. EENT: No signs and/or symptoms were reported regarding the EENT system. Derm: Skin is intact, is healthy with good turgor, Skin is pink, warm \T\ dry. Musculoskeletal: No signs and/or symptoms reported regarding the musculoskeletal system. 03/06 00:00 Reassessment: Patient appears in no apparent distress at this time. Patient and/or pf1 family updated on plan of care and expected duration. Pain level reassessed. Patient is alert, oriented x 3, equal unlabored respirations, skin warm/dry/pink. Patient states feeling better. Patient states symptoms have improved. Vital Signs: 03/05 22:44 BP 155 / 84; Pulse 73; Resp 16; Temp 97.6; Pulse Ox 100% on R/A; Weight 106.59 kg; pf1 Height 5 ft. 4 in. ; Pain 9/10; 23:15 BP 142 / 100; Pulse 78; Resp 17; Pulse Ox 97% on R/A; me1 23:45 BP 153 / 89; Pulse 89; Resp 16; Pulse Ox 97% on R/A; me1 03/06 00:30 BP 149 / 85; Pulse 85; Resp 16; Temp 97.9; Pulse Ox 100% on R/A; Pain 5/10; pf1 03/05 22:44 Body Mass Index 40.34 (106.59 kg, 162.56 cm) pf1 03/05 22:44 Pain Scale: Adult pf1 03/06 00:30 Pain Scale: Adult pf1 ED Course: 03/05 22:39 Patient arrived in ED. pf1 22:45 Triage completed. pf1 22:47 Arm band placed on right wrist. pf1 22:51 Dylan Aceves MD is Attending Physician. rt 22:52 Kay Marks, JIGNESH is Primary Nurse. me1 23:00 Patient has correct armband on for positive identification. Bed in low position. Call vt1 light in reach. Side rails up X 1. Provided Education on: POC. Verbalized understanding. . 23:00 No provider procedures requiring assistance completed. me1 23:19 Inserted saline lock: 22 gauge in right forearm, using aseptic technique. me1 23:56 CT Head Brain wo Cont In Process Unspecified. EDMS 03/06 00:37 IV discontinued, intact, bleeding controlled, No redness/swelling at site. Pressure pf1 dressing applied. Administered Medications: 03/05 23:30 Drug: NS 0.9% IV 1000 ml IV at 1 bolus Per protocol; 1000 mL bolus Route: IV; Rate: 1 me1 bolus; Site: right forearm; 03/06 00:14 Follow up: Response: No adverse reaction; Marked relief of symptoms pf1 00:30 Follow up: IV Status: Completed infusion; IV Intake: 1000ml pf1 03/05 23:30 Drug: Ketorolac IVP 15 mg IVP once Route: IVP; Site: right forearm; me1 03/06 00:13 Follow up: Response: No adverse reaction; Marked relief of symptoms pf1 03/05 23:31 Drug: Acetaminophen PO 1000 mg PO once Route: PO; me1 03/06 00:13 Follow up: Response: No adverse reaction; Marked relief of symptoms; Pain is decreased pf1 03/05 23:31 Drug: metoCLOPramide IVP 10 mg IVP once; over 1 to 2 minutes Route: IVP; Site: right me1 forearm; 03/06 00:13 Follow up: Response: No adverse reaction; Marked relief of symptoms; Pain is decreased pf1 03/05 23:31 Drug: diphenhydrAMINE IVP 25 mg IVP once Route: IVP; Site: right forearm; me1 03/06 00:12 Follow up: Response: No adverse reaction; Marked relief of symptoms; Pain is decreased pf1 Medication: 03/05 23:32 VIS not applicable for this client. me1 Intake: 03/06 00:30 IV: 1000ml; Total: 1000ml. pf1 Outcome: 00:28 Discharge ordered by . rt 00:38 Discharged to home via wheelchair, with family, pf1 00:38 Condition: improved 00:38 Discharge instructions given to patient, family, Instructed on discharge instructions, follow up and referral plans. Demonstrated understanding of instructions, follow-up care, medications, Prescriptions given X 1, 00:39 Patient left the ED. pf1 Signatures: Dispatcher [employer] EDDylan Barrientos MD MD rt Ashley Alexander RN RN pf1 Kay Marks RN RN me1 Corrections: (The following items were deleted from the chart) 03/05 22:57 22:44 Chief complaint: Patient states: bilateral temporal pain of 9,onset 2 days. me1 Patient stated took Excedrin x 2 tablets at 1700. pf1
[2024-03-06 01:23] VITALS: BP 149/85; TEMP 97.9; O2SAT 100
--- NOTE | 2024-03-08 11:33 | RAD REPORT ---
EXAM DESCRIPTION: CT HEAD WITHOUT IV CONTRAST CLINICAL HISTORY: HEADACHE Bed Name: 15 COMPARISON: 01/11/2022. TECHNIQUE: Contiguous axial images of the brain were obtained without the administration of intraven ous contrast. This exam was performed according to our departmental dose-optimization program, which includes automated exposure control, adjustment of the mA and/or kV according to patient size and/or use of iterative reconstruction technique. FINDINGS: There is no acute intracranial hemorrhage or mass effect. Areas of low attenuation within the subcortical white matter are nonspecific but suggestive of small vessel disease. Ventricular syst em is within normal limits. There is adequate shannon-white matter differentiation. There is no skull fr acture. The visualized paranasal sinuses and mastoid air cells are within normal limits. Filling defe ct within the right external ear canal may represent cerumen. IMPRESSION: No acute intracranial abnormalities. Electronically signed by: Kris Hawthorne MD 03/06/2024 12:21 AM CDT Due to temporary technical issues with the PACS/Fluency reporting system, reports are being signed by the in house radiologist without review as a courtesy to ensure prompt reporting. The interpreting r adiologist is fully responsible for the content of the report.
== END 2024-03-06 00:39 | disposition home or self-care (01) ==
LOC: ER 22:21
DX: R51.9 Headache, unspecified (principal); I10 Essential (primary) hypertension; Z88.1 Allergy status to other antibiotic agents
CPT/HCPCS: 96361; 70450; 96375; 96374; 99284; J2765; J1200; J7030